=== PATIENT | female | born 1970 | race Caucasian/White ===

== ENCOUNTER 2020-01-01 00:56 | Day surgery (SDC) | payer BC, SELFPAY ==
[2019-12-30 09:38] VITALS: BMI 24.5
[2020-01-01 08:07] VITALS: BP 118/80; PULSE 94; RESP 16; TEMP 37.6; O2SAT 99
[2020-01-01] MEDS: LACTATED RINGERS 1,000 ML 150 ML IV CONT (08:25)
--- NOTE | 2020-01-01 08:43 | PM.HPGS ---
History of Present Illness History of Present Illness Consent: Risks, benefits, and alternatives have been discussed and questions answered. Patient agrees to proceed with procedure. Chief complaint: Epigastric Pian/ Neoplasm Screening Narrative: Barbara Kaur is a 49 year old female With persistent epigastric pain. Famotidine has not helped PMFSH Past Medical History Medical History Left wrist injury Pain of radial side of wrist Family History Family History Other Diabetes mellitus Hypertension Social History Social History Smoking status: Never smoker Alcohol intake: never Meds Home Medications and Allergies Home Medications Medication Instructions Recorded Confirmed Type bupropion HCl 300 mg 24 hr tablet, 300 mg PO QAM 12/21/19 12/30/19 History extended release escitalopram oxalate 5 mg tablet 5 mg PO DAILY 12/21/19 12/30/19 History zolpidem 10 mg tablet 10 mg PO ONCE 12/21/19 12/30/19 History estradiol 1 mg tablet 1 mg PO DAILY 12/23/19 12/30/19 History alprazolam 0.5 mg PO PRN PRN 12/30/19 12/30/19 History mirabegron [Myrbetriq] 50 mg PO DAILY 12/30/19 01/01/20 History Allergies Allergy/AdvReac Type Severity Reaction Status Date / Time Penicillins AdvReac Mild Vomiting Verified 01/01/20 08:06 Vital Signs Vital Signs - 24 hr 01/01/20 08:07 Temperature 37.6 C Pulse Rate 94 Respiratory Rate 16 Blood Pressure 118/80 Pulse Oximetry 99 Exam Const: General: alert Orientation/consciousness: patient oriented x3 Resp: Auscultation: clear to auscultation bilaterally Cardio: Rhythm: regular rhythm GI: GI Palp: Yes Soft to palpation and No Tenderness to palpation present (GI) Neuro: General: patient oriented x3 Assessment and Plan Assessment and plan (1) Epigastric pain: Code(s): R10.13 - Epigastric pain Status: Acute Assessment and Plan: EGD with possible biopsy or dilatation or cautery. (2) Colon cancer screening: Code(s): Z12.11 - Encounter for screening for malignant neoplasm of colon Status: Acute Assessment and Plan: Colonoscopy with possible biopsy or polypectomy or cautery or injection of substances.
--- NOTE | 2020-01-01 08:46 | P.PNAN_ITS ---
Anes - Initial Pre Proc Eval Procedure: Operation Date: 01/01/20 09:00 Proposed Procedures p Esophagogastroduodenoscopy & Screening Colonoscopy - Prabhu Stiles MD Date/Time: 01/01/20 08:46 Surgeon: Prabhu Stiles MD Pre Op Diagnosis: Epigastric Pian/ Neoplasm Screening Patient Data Age: 49 Gender: F Height: 5 ft 9 in Weight: 74.6 kg Last Vital Signs Temp 99.6 F 01/01/20 08:07 Pulse 94 01/01/20 08:07 Resp 16 01/01/20 08:07 BP 118/80 01/01/20 08:07 Pulse Ox 99 01/01/20 08:07 Allergies Allergy/AdvReac Type Severity Reaction Status Date / Time Penicillins AdvReac Mild Vomiting Verified 01/01/20 08:06 Home Medications Medication Instructions Recorded Confirmed Type bupropion HCl 300 mg 24 hr tablet, 300 mg PO QAM 12/21/19 12/30/19 History extended release escitalopram oxalate 5 mg tablet 5 mg PO DAILY 12/21/19 12/30/19 History zolpidem 10 mg tablet 10 mg PO ONCE 12/21/19 12/30/19 History estradiol 1 mg tablet 1 mg PO DAILY 12/23/19 12/30/19 History alprazolam 0.5 mg PO PRN PRN 12/30/19 12/30/19 History mirabegron [Myrbetriq] 50 mg PO DAILY 12/30/19 01/01/20 History Patient hx anesthesia problems: none Family hx anesthesia problems: none [facility] Past Medical History Medical History Left wrist injury Pain of radial side of wrist Family History Family History Other Diabetes mellitus Hypertension Social History Social History Smoking status: Never smoker Alcohol intake: never Anes - Eval Final PreProcedure Day of Procedure 01/01/20 08:46 Patient weight: normal Heart: regular rate and rhythm Lungs: clear to auscultation Airway: Mallampati scale class III Neurological: alert and oriented Last oral intake: >/= 8 hours ASA classification: II Emergent: no Anesthetic plan: proceed Anesthesia type and monitoring: general GIVS and standard monitoring Informed Consent: The patient's anesthetic plan and its attendant risks and benefits were discussed with the patient/family/POA. Questions were solicited and answers provided to the satisfaction of the patient/family/POA.
[2020-01-01 09:24] VITALS: BP 91/58; PULSE 77; RESP 16; O2SAT 97
[2020-01-01 09:34] VITALS: BP 98/63; PULSE 74; RESP 18; O2SAT 100
[2020-01-01 09:44] VITALS: BP 109/76; PULSE 86; RESP 21; O2SAT 100
== END 2020-01-01 10:03 | disposition home or self-care (01) ==
PROVIDERS: PCP Physician Assistant Medical; Visit Provider Internal Medicine Gastroenterology
PROC: 0DJ08ZZ Inspection of Upper Intestinal Tract, Via Natural or Artificial Opening Endoscopic (ICD-10-PCS; CPT 43235; principal; 2020-01-01 09:00)
DX: Z12.11 Encounter for screening for malignant neoplasm of colon (principal); K31.7 Polyp of stomach and duodenum; K21.0 Gastro-esophageal reflux disease with esophagitis; K29.70 Gastritis, unspecified, without bleeding; K25.9 Gastric ulcer, unspecified as acute or chronic, without hemorrhage or perforation; K29.80 Duodenitis without bleeding
CPT/HCPCS: 45378; 43239; 87081; 88305; J2001; J2704; J7120

== ENCOUNTER 2020-03-14 08:37 | Outpatient (CLI) | payer BC, SELFPAY ==
--- NOTE | ~2020-03-14 | MR_ITS ---
EXAMINATION: MR lumbar spine wo con EXAM DATE: 03/14/2020 09:29 INDICATION: Chronic low back pain. TECHNIQUE: Multi-sequential, multiplanar MR images of the lumbar spine were obtained without contrast . Sagittal T1, T2, T2 fat saturation images. Axial T2 weighted images. There is no prior study for comparison. FINDINGS: The spinal cord central canal is perceptible, minimally dilated at about 2 mm without any o bstructing mass, cord parenchymal signal abnormality or other explanation. This is most likely incide ntal and not a clinically significant finding. There is a rudimentary L5-S1 disc space, a transitional L5 segment. There is edema within the pedicle s of both L4 and L5, without spondylolysis identified. Likely stress related change without fracture lines. Conus terminates at the T12-L1 level. There is mild disc disease L2-S1. The vertebral bodies are aligned in the AP dimension. Paraspinal soft tissue is unremarkable. Level by level evaluation: T11-12: There is a mild diffuse disc bulge. Facet arthropathy: Mild. Neural foraminal stenosis: No stenosis. Central canal stenosis: No stenosis. T12-L1: Disc does not extend beyond the endplate margin. Facet arthropathy: None. Neural foraminal stenosis: No stenosis. Central canal stenosis: No stenosis. L1-L2: Disc does not extend beyond the endplate margin. Facet arthropathy: Mild. Neural foraminal stenosis: No stenosis. Central canal stenosis: No stenosis. L2-3: There is a mild diffuse disc bulge. Facet arthropathy: Mild to moderate. Neural foraminal stenosis: No stenosis. Central canal stenosis: No stenosis. L3-4: There is a mild diffuse disc bulge. Facet arthropathy: Moderate. Neural foraminal stenosis: Mild left. Central canal stenosis: Minimal. L4-5: There is a mild diffuse disc bulge. Facet arthropathy: Moderate. Neural foraminal stenosis: Mild left. Central canal stenosis: Mild. L5-S1: There is a congenitally narrowed disc space. Facet arthropathy: Mild. Neural foraminal stenosis: No stenosis. Central canal stenosis: No stenosis. IMPRESSION: 1. L4 and L5 bilateral pedicular edema or stress reaction without discrete spondylolysis. 2. Moderate mid lumbar facet arthropathy. 3. Mild disc disease. 4. Transitional L5 segment. Reviewed, dictated and finalized at location A. IMPRESSION: 1. L4 and L5 bilateral pedicular edema or stress reaction without discrete spo ndylolysis. 2. Moderate mid lumbar facet arthropathy. 3. Mild disc disease. 4. Transitional L5 segment.
== END 2020-03-14 08:38 | disposition home or self-care (01) ==
LOC: ANHIMG 08:46
PROVIDERS: PCP Physician Assistant Medical; Visit Provider Nurse Practitioner Family
DX: M54.5 Low back pain (principal); G89.29 Other chronic pain; M51.36 Other intervertebral disc degeneration, lumbar region; Q76.49 Other congenital malformations of spine, not associated with scoliosis
CPT/HCPCS: 72148

== ENCOUNTER → 2020-05-06 13:17 | Outpatient (CLI) | payer BC, SELFPAY ==
--- NOTE | ~2020-05-06 | DEXA_ITS ---
Bone Density Report Name: Barbara Kaur Age: 50 Sex: Female Ethnicity: White Date of : 1970 Indication: postmenopausal; screening for osteoporosis; height loss; hysterectomy; Referring Provider: Callum, Noa Corley Study: Bone densitometry was performed. Exam Date: May 06, 2020 Accession number: [id number] Bone Density: Region BMD T-score Z-score Classification AP Spine (L1, L2, L3) 0.973 -0.4 0.4 Normal Femoral Neck (Left) 0.980 1.2 2.0 Normal Total Hip (Left) 1.021 0.6 1.2 Normal Femoral Neck (Right) 1.047 1.8 2.6 Normal Total Hip (Right) 1.068 1.0 1.6 Normal Total Hip Mean 1.045 0.8 1.4 Normal World Health Organization criteria for BMD impression classify patients as: Normal (T-score at or above -1.0), Osteopenia (T-score between -1.0 and -2.5), or Osteoporosis (T-score at or below -2.5). 10-year Fracture Risk: FRAX not reported because: All T-scores for Spine Total, Hip Total, Femoral Neck at or above -1.0 Treated for osteoporosis Clinical Information Provided by Patient: Is being treated for osteoporosis Has used the following medications: HRT (i.e. estrogen/hormone therapy), Vitamin D, Calcium Has the following medical conditions: Hysterectomy Patient maximum height was 68 Menopause Age: 40 No regular weight bearing exercise Does not regularly consume dairy products Drinks caffeinated beverages Onset of menses at age 9 Number of children 1 Impression: The patient has normal bone mass. Discussion: It is important to ask patients whether they are taking their medications and to encourage continued and appropriate compliance with their osteoporosis therapies to reduce fracture risk. It is also important to review their risk factors and encourage appropriate calcium and vitamin D intakes, exercise, fall prevention and other lifestyle measures. Follow-Up: Consider a repeat BMD and Vertebral Fracture Assessment (VFA) exam in 2 years or sooner if medically necessary, to reassess this patient's status. Reported by: [facility] on 05/06/2020 1:37:00 PM. Reviewed, dictated and finalized at location A. AMY
== END ==
PROVIDERS: PCP Physician Assistant Medical; Visit Provider Internal Medicine Endocrinology, Diabetes & Metabolism
DX: Z78.0 Asymptomatic menopausal state (principal)
CPT/HCPCS: 77080

== ENCOUNTER → 2020-05-13 13:06 | Outpatient (CLI) | payer BC, SELFPAY ==
--- NOTE | ~2020-05-13 | XR_ITS ---
XR lumbar spine min 4V DATE: 05/13/2020 13:56 INDICATION: Back pain, lumbar area TECHNIQUE: Standing AP, lateral and coned lateral lumbosacral views. Flexion and extension upright la teral views. COMPARISON: 03/14/2020 MRI lumbar spine FINDINGS: There is prominent diffuse osteopenia. No fracture or bone destruction of the lumbar spine is detected. The included lower thoracic and lumb ar pedicles are intact. There is minimal dextroscoliosis of the lumbar spine. There is a transitional fifth lumbar vertebra. There is slight grade 1 anterolisthesis at L4-5, stable in neutral, flexion and extension. There is moderately prominent loss of interspace height at L3-4. Remaining lumbar interspaces are rel atively preserved. The sacroiliac joints are intact, with mild degenerative change. IMPRESSION: Diffuse osteopenia Minimal dextroscoliosis Transitional fifth lumbar vertebra Minimal grade 1 anterolisthesis at L4-5 Reviewed, dictated and finalized at location B.
== END ==
DX: M47.816 Spondylosis without myelopathy or radiculopathy, lumbar region (principal); M85.88 Other specified disorders of bone density and structure, other site
CPT/HCPCS: 72110

== ENCOUNTER 2020-07-07 08:03 | Outpatient (CLI) | payer BC, SELFPAY ==
[2020-07-07 08:38] LABS: Hematocrit 42.5 % (37.0-47.0); Hemoglobin 13.9 g/dL (12.0-15.0); Mean Corpuscular HGB Conc 32.7 g/dl (32-36); Mean Corpuscular Hemoglobin 29.6 pg (26-34); Mean Corpuscular Volume 90.6 fl (80-100); Mean Platelet Volume 9.8 fl (7.4-10.4); Platelet Count Result 303 k/mm3 (150-375); Red Blood Count 4.69 M/mm3 (4.2-5.4); Red Cell Distribution Width 12.7 % (11.5-14.5); White Blood Count 4.5 K/mm3 (4.5-10.0)
[2020-07-07 08:52] LABS: Anion Gap 6 mmol/L (8-16); Blood Urea Nitrogen 5 mg/dL (7-17); Calcium 9.3 mg/dL (8.4-10.2); Carbon Dioxide 29 mmol/L (22-30); Chloride 103 mmol/L (98-107); Estimated Glomerular Filt Rate 58; Glucose 109 mg/dL (65-105); Potassium 3.6 mmol/L (3.4-5.0); Sodium 138 mmol/L (137-145)
== END 2020-07-07 08:04 | disposition home or self-care (01) ==
LOC: ANHLAB 08:05
PROVIDERS: PCP Family Medicine; Visit Provider Nurse Practitioner Family
DX: R11.2 Nausea with vomiting, unspecified (principal)
CPT/HCPCS: 36415; 80048; 85027

== ENCOUNTER 2020-07-08 12:59 | Emergency (ER) | payer BC, SELFPAY ==
--- NOTE | ~2020-07-08 | CT_ITS ---
EXAMINATION: CT brain wo con DATE: 07/08/2020 16:48 INDICATION: Headache. TECHNIQUE: Computed tomography (CT) of the head was performed without intravenous contrast. The mA wa s adjusted according to patient size. Iterative reconstruction technique was employed. The dose-lengt h product was 681.00 mGy-cm. COMPARISON: None FINDINGS: There is no intracranial hemorrhage, acute infarction, or abnormal intracranial mass lesion . The ventricles are normal in size. The orbits are normal. The paranasal sinuses are clear. The mast oid air cells are normal. IMPRESSION: 1. Normal brain. Reviewed, dictated and finalized at location A. IMPRESSION: 1. Normal brain.
[2020-07-08 13:13] VITALS: BP 116/66; PULSE 93; RESP 18; TEMP 36.2; O2SAT 100
[2020-07-08 13:27] LABS: Basophils Percent Auto 0.4 % (0.2-1.2); Eosinophils Percent Auto 0.3 % (0-4.4); Hematocrit 41.7 % (37.0-47.0); Hemoglobin 14.1 g/dL (12.0-15.0); Immature Granulocyte Absolute 0.02 K/mm3 (0.00-0.031); Immature Granulocyte Percent A 0.3 % (0-0.5); Lymphocytes Absolute Auto 3.08 K/mm3 (0.9-3.2); Lymphocytes Percent Auto 45.6 % (18.3-44.2); Mean Corpuscular HGB Conc 33.8 g/dl (32-36); Mean Corpuscular Hemoglobin 30.1 pg (26-34); Mean Corpuscular Volume 89.1 fl (80-100); Mean Platelet Volume 9.8 fl (7.4-10.4); Monocytes Absolute Auto 0.6 K/mm3 (0.1-0.6); Monocytes Percent Auto 8.7 % (2.6-8.5); Neutrophils Percent Auto 44.7 % (45.5-73.1); Platelet Count Result 286 k/mm3 (150-375); Red Blood Count 4.68 M/mm3 (4.2-5.4); Red Cell Distribution Width 12.5 % (11.5-14.5); White Blood Count 6.8 K/mm3 (4.5-10.0)
--- NOTE | 2020-07-08 13:37 | ED.NAVMDI ---
HPI - Nausea/Vomiting/Diarrhea General Chief complaint: Nausea/Vomiting/Diarrhea Stated complaint: x1 week n/v Time Seen by Provider: 07/08/20 13:22 Source: RN notes reviewed History of Present Illness HPI Narrative: Patient presents emergency department from home for nausea vomiting and diarrhea. Patient states symptoms began 1 week ago. States she had numerous episodes of nausea vomiting as well as diarrhea. Associated with mild pain described as burning in the epigastric region. Patient also notes a bilateral frontal headache. She denies any fevers or chills chest pain shortness of breath or any other symptoms. Related Data Home Medications Medication Instructions Recorded Confirmed bupropion HCl 300 mg 24 hr tablet, 300 mg PO QAM 12/21/19 03/01/20 extended release escitalopram oxalate 5 mg tablet 5 mg PO DAILY 12/21/19 03/01/20 zolpidem 10 mg tablet 10 mg PO ONCE 12/21/19 03/01/20 estradiol 1 mg tablet 1 mg PO DAILY 12/23/19 03/01/20 Myrbetriq 50 mg PO DAILY 12/30/19 03/01/20 alprazolam 0.5 mg PO PRN PRN 12/30/19 03/01/20 topiramate 25 mg PO 07/08/20 Allergies Allergy/AdvReac Type Severity Reaction Status Date / Time Penicillins AdvReac Mild Vomiting Verified 07/08/20 14:21 Review of Systems Review of Systems: Narrative: Gen.: Denies fevers or chills ENT: Denies congestion Respiratory: Denies shortness of breath or cough CV: Denies chest pain or palpitations GI: See HPI denies burning, urgency, frequency or hematuria Musculoskeletal: Denies back pain or muscle pain Neuro: Denies numbness, tingling, weakness or focal weakness Skin: Denies rash Except as documented, all other systems reviewed and negative PMFSH Past Medical History Medical History Asthma Left wrist injury Pain of radial side of wrist Social History Social History Smoking status: Never smoker Alcohol intake: never Gender identity (if verbalized by the patient): Female Exam Narrative: Exam Narrative: APPEARANCE: No acute distress, nontoxic, resting in bed HEENT: Normocephalic, atraumatic, OMM RESPIRATORY: No respiratory distress, clear to auscultation bilaterally with no rhonchi wheezing or rales CARDIOVASCULAR: RRR s murmur ABDOMINAL: Soft, nondistended, tender palpation epigastric region, no tenderness right upper quadrant, left upper quadrant, right lower quadrant left lower quadrant no rebound or guarding MUSCULOSKELETAl: Moves all extremities. No clubbing, cyanosis or edema. NEURO: Awake and alert. Following commands, speech normal, no focal deficits SKIN:: Warm, dry. Normal Color PSYCHIATRIC: Normal affect/mood Course Course Emergency Course: Reviewed old records patient with a cover test yesterday that was negative Patient states she is feeling much better at this time. States headache is resolved able to eat and drink in ED with no emesis denies any abdominal pain at this time Patient states that they are feeling much better at this time. States abdominal pain has resolved. Repeat abdominal exam shows the patient's abdomen to be soft and nontender. Discussed with patient results of workup and diagnosis. Discussed need for follow-up with primary care physician, reasons to return to the emergency department in proper use of medication. Patient understands and agrees to current treatment plan Vital Signs Vital signs: Vital Signs Temperature 97.2 F L 07/08/20 13:13 Pulse Rate 93 07/08/20 13:13 Respiratory Rate 18 07/08/20 13:13 Blood Pressure 116/66 07/08/20 13:13 Pulse Oximetry 100 07/08/20 13:13 Temperature 97.2 F L 07/08/20 13:13 Pulse Rate 83 07/08/20 16:08 Respiratory Rate 18 07/08/20 16:08 Blood Pressure 123/74 07/08/20 16:08 Pulse Oximetry 100 07/08/20 16:08 MDM - Nausea/Vomiting/Diarrhea MDM Narrative Medical decision making narrative: Patient's abdomen is soft
[2020-07-08 13:39] LABS: Alanine Aminotransferase 15 U/L (4-35); Albumin Level 4.3 g/dL (3.5-5.1); Alkaline Phosphatase 84 U/L (38-126); Anion Gap 7 mmol/L (8-16); Aspartate Amino Transferase 20 U/L (14-36); Bilirubin,Total 0.4 mg/dL (0.2-1.3); Blood Urea Nitrogen 5 mg/dL (7-17); Calcium 9.5 mg/dL (8.4-10.2); Carbon Dioxide 29 mmol/L (22-30); Chloride 102 mmol/L (98-107); Estimated CRCL calculation 59 ml/min; Estimated Glomerular Filt Rate 58; Glucose 103 mg/dL (65-105); Lipase 116 U/L (23-300); Potassium 3.6 mmol/L (3.4-5.0); Sodium 138 mmol/L (137-145)
--- NOTE | 2020-07-08 13:47 | PC.NURSE ---
Pt unable to urinate. Refusing catheter
[2020-07-08 14:15] LABS: Add Urine Microscopic? YES; Appearance Urine Cloudy (Clear); Bacteria Urine 2+ /hpf; Bilirubin Urine Negative (Negative); Blood Urine Negative (Negative); Color Urine Yellow (Yellow); Glucose Urine UA Negative (Negative); Ketones Urine Negative (Negative); Leukocyte Esterase Ur Negative LEU/UL (Negative); Mucus Urine Rare /lpf; Nitrate Urine Negative (Negative); Protein Urine Negative (Negative); RBC Urine 0-2 /hpf (0-2); Specific Grav Ur 1.011 (1.001-1.035); Squamous Epithelial Cell Urine Moderate /hpf (Few); Urobilinogen Urine Negative mg/dL (<2.0)
[2020-07-08] MEDS: FAMOTIDINE 20 MG/2 ML VIAL IV PUSH (14:20)
[2020-07-08] MEDS: ONDANSETRON INJ 4 MG/2 ML VIAL IV PUSH (14:20)
[2020-07-08] MEDS: SODIUM CHLORIDE 0.9% IV 1,000 ML 999 ML IV CONT ×2 (14:20→14:58)
--- NOTE | 2020-07-08 14:30 | PC.NURSE ---
Pt still unable to urinate. still refusing catheter
[2020-07-08] MEDS: KETOROLAC 30 MG/ML VIAL (*BKC) IV PUSH (16:06)
[2020-07-08 16:08] VITALS: BP 123/74; PULSE 83; RESP 18; O2SAT 100
[2020-07-08] MEDS: PROMETHAZINE HCL 25 MG/ML AMPUL 12.5 MG IV PUSH (16:34)
[2020-07-08] MEDS: NITROFURANTOIN MONOHYD MACROCR 100 MG CAP PO (18:00)
[2020-07-08 18:24] VITALS: BP 125/73; PULSE 85; RESP 18; O2SAT 100
== END 2020-07-08 18:25 | disposition home or self-care (01) ==
PROVIDERS: Emergency Medicine; Emergency Provider Emergency Medicine; PCP Family Medicine
DX: R11.2 Nausea with vomiting, unspecified (principal); R10.13 Epigastric pain; R51 Headache; J45.909 Unspecified asthma, uncomplicated
CPT/HCPCS: 36415; 70450; 80053; 81001; 81025; 83690; 85025; 87086; 96361; 96365; 96375; 99284; A9270; J0131; J1885; J2405; J2550; J7030

== ENCOUNTER 2020-10-09 14:57 | Emergency (ER) | payer BC, SELFPAY ==
--- NOTE | ~2020-10-09 | CT_ITS ---
EXAMINATION: CT brain wo con EXAM DATE: 10/09/2020 16:17 INDICATION: Headache. TECHNIQUE: Spiral CT of the head was performed without contrast. Axial, coronal and sagittal images were reviewed. The dose-length product (DLP) for this examination was 605.33 mGy-cm. The exposure w as tailored according to patient size, and iterative reconstruction (ASIR) was used as additional dos e reduction technique. Comparison is made to prior examination from 07/08/2020. FINDINGS: There is no acute intraparenchymal hemorrhage. No evidence of intraparenchymal brain mass lesion. No evidence of acute infarction. Please note that initial head CT has limited sensitivity f or small or acute infarctions. There is mild prominence of the sulci and ventricles related to cerebr al atrophy. There is intracranial carotid arteriosclerosis. There are no extra-axial collections. There is no mass effect or midline shift. The orbits are unremarkable. Soft tissue is unremarkable . The visualized sinuses and mastoid air cells are well aerated. IMPRESSION: Unremarkable head CT exam. Reviewed, dictated and finalized at location A. [employer] ASSISTANT IMPRESSION: Unremarkable head CT exam.
[2020-10-09 15:02] VITALS: BP 119/68; PULSE 88; RESP 16; TEMP 36.6; O2SAT 99
--- NOTE | 2020-10-09 15:32 | ED.HA ---
HPI - Headache General Chief Complaint: Headache Stated Complaint: h/a s/p spinal injection Time Seen by Provider: 10/09/20 15:32 Source: patient Mode of arrival: ambulatory Limitations: no limitations History of Present Illness HPI Narrative: Patient is a 50-year-old female with a history of chronic lower back pain who presents for evaluation of headache pain. Patient reportedly had a laminar procedure of L4-L5 done at a pain management clinic on 10/06, was noted to have a CSF leak by the physician, Dr. Keaton Gamboa who performed the procedure, and then yesterday developed a positional headache, that is severe when she is sitting upright or standing associated with photosensitivity, nausea. Patient denies lower back pain. She denies bruising at the site. She denies weakness or numbness in her lower extremities. Patient has been taking antiemetic prescribed by her primary care physician without any improvement in her symptoms. Related Data Home Medications Medication Instructions Recorded Confirmed bupropion HCl 300 mg 24 hr tablet, 300 mg PO QAM 12/21/19 09/04/20 extended release escitalopram oxalate 5 mg tablet 5 mg PO DAILY 12/21/19 09/04/20 zolpidem 10 mg tablet 10 mg PO ONCE 12/21/19 09/04/20 estradiol 1 mg tablet 1 mg PO DAILY 12/23/19 09/04/20 Myrbetriq 50 mg PO DAILY 12/30/19 09/04/20 alprazolam 0.5 mg PO PRN PRN 12/30/19 09/04/20 Allergies Allergy/AdvReac Type Severity Reaction Status Date / Time amoxicillin [From Augmentin] Allergy Vomiting Verified 10/09/20 15:25 clavulanic acid Allergy Vomiting Verified 10/09/20 15:25 [From Augmentin] Penicillins AdvReac Mild Vomiting Verified 10/09/20 15:25 Review of Systems Review of Systems: Narrative: CONSTITUTIONAL: Denies fever, chills, or sweats. EYES: Denies visual changes, redness, or discharge. ENT: Denies rhinorrhea, congestion, sore throat, or otalgia. CARDIOVASCULAR: Denies chest pain, palpitations, or edema. RESPIRATORY: Denies cough or dyspnea. GASTROINTESTINAL: Denies abdominal pain, nausea, and vomiting GENITOURINARY: Denies dysuria or hematuria. SKIN: Denies rash or itching. MUSCULOSKELETAL: Denies back pain, joint pain, or myalgia. 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 EYES: 2+ PERRLA and EOMI, no nystagmus. ENT: Nares clear, no rhinorrhea or epistaxis. Mucous membranes moist. NECK: Supple. Intact flexion extension without rigidity or pain. CHEST: No respiratory distress, breathing even and non labored HEART: Regular rate, sinus rhythm ABDOMEN:Non distended, non tender Thorax: Midline lumbar needle site injection site clean, dry, intact, nontender EXTREMITIES: Normal range of motion. No edema. SKIN: Warm, dry, no rash. NEURO:No focal deficits. Alert and oriented x3. EOMs intact without nystagmus. No facial droop/asymmetry noted bilaterally. Grimace intact. Intact sensation in face. Hearing intact bilaterally. Shoulder shrug intact. Strength 5/5 bilateral upper extremities. Strength 5/5 bilateral lower extremities. Ambulatory with a narrow base, steady gait. Course Vital Signs Vital signs: Vital Signs Temperature 36.6 C 10/09/20 15:02 Pulse Rate 88 10/09/20 15:02 Respiratory Rate 16 10/09/20 15:02 Blood Pressure 119/68
[2020-10-09] MEDS: SODIUM CHLORIDE 0.9% IV 1,000 ML 999 ML IV CONT (16:00)
[2020-10-09] MEDS: METOCLOPRAMIDE HCL INJ 10 MG/2 ML VIAL IV PUSH (16:04)
[2020-10-09 16:28] LABS: Basophils Percent Auto 0.4 % (0.2-1.2); Eosinophils Percent Auto 0.4 % (0-4.4); Hemoglobin 12.9 g/dL (12.0-15.0); Immature Granulocyte Absolute 0.02 K/mm3 (0.00-0.031); Immature Granulocyte Percent A 0.3 % (0-0.5); Lymphocytes Absolute Auto 3.41 K/mm3 (0.9-3.2); Lymphocytes Percent Auto 43.8 % (18.3-44.2); Mean Corpuscular HGB Conc 33.1 g/dl (32-36); Mean Corpuscular Hemoglobin 30.2 pg (26-34); Mean Corpuscular Volume 91.3 fl (80-100); Monocytes Absolute Auto 0.6 K/mm3 (0.1-0.6); Monocytes Percent Auto 8.2 % (2.6-8.5); Neutrophils Absolute Auto 3.7 K/mm3 (1.3-6.7); Neutrophils Percent Auto 46.9 % (45.5-73.1); Platelet Count Result 289 k/mm3 (150-375); Red Blood Count 4.27 M/mm3 (4.2-5.4); Red Cell Distribution Width 12.7 % (11.5-14.5); White Blood Count 7.8 K/mm3 (4.5-10.0)
[2020-10-09] MEDS: CAFFEINE 200 MG TABLET 100 MG PO (16:28)
[2020-10-09] MEDS: MAGNESIUM SULF 2 GM/WATER 50ML 2 GM/50 ML BAG IVPB (16:28)
[2020-10-09 16:39] LABS: Anion Gap 6 mmol/L (8-16); Blood Urea Nitrogen 18 mg/dL (7-17); Calcium 8.9 mg/dL (8.4-10.2); Carbon Dioxide 31 mmol/L (22-30); Chloride 102 mmol/L (98-107); Estimated CRCL calculation 59 ml/min; Estimated Glomerular Filt Rate 58; Glucose 86 mg/dL (65-105); Potassium 3.2 mmol/L (3.4-5.0); Sodium 139 mmol/L (137-145)
--- NOTE | 2020-10-26 07:16 | PC.NURSE ---
Late entry note - IV Normal Saline fluids stopped on 10/09/20 @ 1800.
== END 2020-10-09 18:10 | disposition home or self-care (01) ==
PROVIDERS: Emergency Provider Emergency Medicine; PCP Family Medicine
DX: R51.9 Headache, unspecified (principal); J45.909 Unspecified asthma, uncomplicated
CPT/HCPCS: 36415; 70450; 80048; 85025; 96365; 96367; 96375; 99284; A9270; J0131; J1100; J2765; J3475; J7030

== ENCOUNTER → 2021-02-17 15:42 | Outpatient (CLI) | payer BC, SELFPAY ==
--- NOTE | ~2021-02-17 | MR_ITS ---
EXAMINATION: MR lumbar spine wo con DATE: 02/17/2021 16:35 INDICATION: Lumbago TECHNIQUE: Magnetic resonance imaging (MRI) of the lumbar spine was performed without intravenous con trast. Sequences included sagittal T2-weighted FSE, sagittal T2-weighted FS FSE, sagittal T1-weighted FSE, and axial T2-weighted FSE. COMPARISON: None FINDINGS: 1-2 mm anterolisthesis L5 on S1. Vertebral body heights are normal. Mild fibrofatty degenerative endp late changes at the anterior superior endplate of T12. Marrow signal is otherwise normal. Disc height loss with disc bulges at T10-T11 and T11-T12. Disc desiccation and moderate disc height loss at L3-L 4 and mild disc height loss at L2-L3, L4-L5 and L5-S1. The conus medullaris terminates at L1. There i s normal signal in the caudal spinal cord. Paravertebral soft tissues are unremarkable. The following disc levels are specifically discussed: T12-L1: The disc does not extend beyond the endplate margin. There is mild bilateral facet joint oste oarthritis. There is no neural foraminal stenosis. There is no central canal stenosis. L1-L2: Disc is minimally bulging. There is mild bilateral facet joint osteoarthritis. There is no brennen ral foraminal stenosis. There is no central canal stenosis. L2-L3: Disc is bulging. There is mild left and moderate right facet joint osteoarthritis. There is mi ld bilateral neural foraminal stenosis. There is mild central canal stenosis. L3-L4: Disc is bulging with superimposed annular fissure and small central to left paracentral disc e xtrusion with disc material extending up to 3 mm cephalad to the level of the inferior endplate of L3 . There is hypertrophy of the ligamentum flavum. There is moderate bilateral facet joint osteoarthrit is. There is mild bilateral neural foraminal stenosis. There is mild central canal stenosis. L4-L5: Disc is bulging. There is hypertrophy of the ligamentum flavum. There is moderate right and s evere left facet joint osteoarthritis. There is mild bilateral neural foraminal stenosis. There is mi ld central canal stenosis. L5-S1: Disc is minimally bulging. There is mild bilateral facet joint osteoarthritis. There is no brennen ral foraminal stenosis. There is no central canal stenosis. IMPRESSION: 1. Mild lumbar spondylosis. Reviewed, dictated and finalized at location A. IMPRESSION: 1. Mild lumbar spondylosis.
== END ==
PROVIDERS: Visit Provider Nurse Practitioner Family
DX: M47.896 Other spondylosis, lumbar region (principal)
CPT/HCPCS: 72148

== ENCOUNTER 2021-02-22 07:49 | Outpatient (CLI) | payer BC, SELFPAY | END 2021-02-22 07:50 | disposition home or self-care (01) | PROVIDERS: Visit Provider Otolaryngology | DX: H93.19 Tinnitus, unspecified ear (principal); H90.3 Sensorineural hearing loss, bilateral | CPT/HCPCS: 92557; 92567 ==

== ENCOUNTER → 2021-02-22 16:13 | Outpatient (CLI) | payer BC, SELFPAY ==
--- NOTE | ~2021-02-22 | MM_ITS ---
EXAMINATION: MM screening adi BI w loco HISTORY: Screening TECHNIQUE: Craniocaudal and mediolateral oblique 3-D tomosynthesis images were obtained and synthetic 2-D images were generated. CAD analysis was submitted and interpreted. COMPARISON: Comparison to multiple prior studies sequentially, with oldest reviewed study dated 01/14. BREAST PARENCHYMAL COMPOSITION: The breasts are heterogeneously dense, which may obscure small masses . FINDINGS: There is a new mass in the lower inner quadrant of the right breast posteriorly measuring 8 mm. The left breast is stable without evidence for malignancy. IMPRESSION: 1. New right breast mass, lower inner quadrant measuring 8 mm. 2. Additional mammographic views and possible breast ultrasound are recommended. BI-RADS Category 0: Incomplete: Needs additional imaging evaluation. Reviewed, dictated and finalized at location A. IMPRESSION: 1. New right breast mass, lower inner quadrant measuring 8 mm. 2. Additional mammographic views and possible breast ultrasound are recommended . BI-RADS Category 0: Incomplete: Needs additional imaging evaluation.
== END ==
PROVIDERS: Visit Provider Nurse Practitioner
DX: Z12.31 Encounter for screening mammogram for malignant neoplasm of breast (principal); R92.8 Other abnormal and inconclusive findings on diagnostic imaging of breast
CPT/HCPCS: 77063; 77067

== ENCOUNTER 2021-02-25 11:24 | Outpatient (CLI) | payer BC, SELFPAY ==
--- NOTE | ~2021-02-25 | MMUS_ITS ---
EXAMINATION: MM diagnostic mammo unilat RT, US breast RT limited HISTORY: Follow-up right breast mass TECHNIQUE: Additional 3-D tomosynthesis images of the right breast were performed and synthetic 2-D i mages were generated. CAD analysis was submitted and interpreted. High resolution Limited right breas t ultrasound was performed. COMPARISON: Comparison to multiple prior studies sequentially, with oldest reviewed study dated 01/14. BREAST PARENCHYMAL COMPOSITION: The breasts are heterogenously dense, which may obscure small masses. FINDINGS: MAMMOGRAPHIC FINDINGS: There is a mass in the lower inner quadrant of the right breast, middle-posterior third. This mass me asures approximately 9 mm with slightly lobulated margins. ULTRASOUND: Limited right breast ultrasound: At 2:00, 7 cm from the nipple, there is an oval hypoechoic mass measuring 7 x 7 x 5 mm with parallel orientation, circumscribed margins and heterogeneous internal echotexture. There is minimal internal vascularity. No significant posterior features. IMPRESSION: 1. Right breast mass measuring 7 mm at 2:00, 7 cm from the nipple. 2. Ultrasound-guided right breast biopsy recommended. BI-RADS category 4, suspicious findings. Reviewed, dictated and finalized at location A. IMPRESSION: 1. Right breast mass measuring 7 mm at 2:00, 7 cm from the nipple. 2. Ultrasound-guided right breast biopsy recommended. BI-RADS category 4, suspicious findings.
== END 2021-02-25 11:25 | disposition home or self-care (01) ==
PROVIDERS: Visit Provider Obstetrics & Gynecology Gynecology
DX: R92.8 Other abnormal and inconclusive findings on diagnostic imaging of breast (principal)
CPT/HCPCS: 76642; 77065

== ENCOUNTER 2021-03-15 10:16 | Outpatient (CLI) | payer BC, SELFPAY ==
--- NOTE | ~2021-03-15 | MMUS_ITS ---
EXAMINATION: US GUIDED NEEDLE BIOPSY DATE: 03/15/2021 11:33 CDT INDICATION: 7 mm mammographic and sonographic mass at 2:00 7 cm from nipple TECHNIQUE AND FINDINGS: The risks and potential benefits of the procedure were discussed with the patient, and written inform ed consent was obtained. Timeout procedure was performed. After sterile preparation of the right ping st, 1% lidocaine was utilized for local anesthesia. A 14G spring-loaded biopsy gun needle was advanced to the edge of the region of interest from a media l approach utilizing sonographic guidance. A total of three tissue core samples were obtained throug h the lesion. An Inrad tissue marker clip was then placed at the biopsy site. Hemostasis was achieve d. A sterile bandage was applied. The patient tolerated procedure well and there was no evidence of immediate complication. The patien t was given verbal instructions prior to departing from the department. A two view mammogram was perf ormed to document tissue marker clip placement. The tissue samples were submitted to surgical patholo gy for histologic analysis. IMPRESSION: 1. Successful ultrasound guided biopsy of right 2:00 breast mass with biopsy marker placement. Andi guillen refer to pathology report for histologic analysis. Reviewed, dictated and finalized at Location A. Reviewed, dictated and finalized at location A. IMPRESSION: 1. Successful ultrasound guided biopsy of right 2:00 breast mass with biopsy m arker placement. Please refer to pathology report for histologic analysis.
== END 2021-03-15 10:17 | disposition home or self-care (01) ==
PROVIDERS: PCP Physician Assistant Medical; Visit Provider Surgery
DX: R92.8 Other abnormal and inconclusive findings on diagnostic imaging of breast (principal)
CPT/HCPCS: 19083; 88305; A4648

== ENCOUNTER 2021-06-02 09:35 | Outpatient (CLI) | payer BC, SELFPAY ==
--- NOTE | ~2021-06-02 | XR_ITS ---
XR chest 2V DATE: 06/02/2021 09:50 INDICATION: Cough, shortness of breath. Asthma. TECHNIQUE: PA and lateral views COMPARISON: 10/11/2018 two-view chest FINDINGS: Normal heart size. No hilar or mediastinal enlargement. Moderate hyperinflation of the lung s. No pulmonary infiltrate or consolidation, pleural effusion or pulmonary vascular congestion or pne umothorax. Prominent degenerative disc disease in the lower cervical spine. Mild degenerative change of the thor acic spine. Diffuse osteopenia. IMPRESSION: Moderate hyperinflation; no active cardiopulmonary disease Reviewed, dictated and finalized at location A.
== END 2021-06-02 09:36 | disposition home or self-care (01) ==
PROVIDERS: PCP Family Medicine; Visit Provider Nurse Practitioner Family
DX: R05 Cough (principal); R06.02 Shortness of breath; J45.909 Unspecified asthma, uncomplicated; R91.8 Other nonspecific abnormal finding of lung field
CPT/HCPCS: 71046

== ENCOUNTER 2021-09-15 01:17 | Day surgery (SDC) | payer BC, SELFPAY ==
[2021-09-02 10:57] VITALS: BMI 24.7
[2021-09-15 09:06] VITALS: BP 118/78; PULSE 92; RESP 19; TEMP 37.3; O2SAT 100
--- NOTE | 2021-09-15 09:10 | WPDANESEPPF ---
Anes - Initial Pre Proc Eval Procedure: Operation Date: 09/15/21 10:15 Proposed Procedures p Esophagogastroduodenoscopy - Maikel Velazquez MD Date/Time: 09/15/21 09:10 Surgeon: Maikel Velazquez MD Pre Op Diagnosis: nausea, GERD Patient Data Age: 51 Gender: F Height: 1.73 m Weight: 75.2 kg Last Vital Signs Temp 37.3 C 09/15/21 09:06 Pulse 92 09/15/21 09:06 Resp 19 09/15/21 09:06 BP 118/78 09/15/21 09:06 Pulse Ox 100 09/15/21 09:06 Allergies Allergy/AdvReac Type Severity Reaction Status Date / Time amoxicillin [From Augmentin] Allergy Vomiting Verified 09/15/21 09:04 clavulanic acid Allergy Vomiting Verified 09/15/21 09:04 [From Augmentin] Penicillins AdvReac Mild Vomiting Verified 09/15/21 09:04 Home Medications Medication Instructions Recorded Confirmed Type bupropion HCl 300 mg 24 hr tablet, 300 mg PO QAM 12/21/19 09/15/21 History extended release Myrbetriq 50 mg PO DAILY 12/30/19 09/15/21 History alprazolam 0.5 mg PO PRN PRN 12/30/19 09/15/21 History estradiol 1 mg tablet 1 mg PO DAILY tablet 02/04/21 09/15/21 History rosuvastatin 20 mg tablet 20 mg PO WEEKLY 03/03/21 09/15/21 History albuterol sulfate 90 mcg/actuation 1 inh INHALATION Q4H PRN #6.7 gm 05/18/21 09/15/21 Rx aerosol inhaler montelukast 10 mg tablet 10 mg PO DAILY #30 tablet 06/15/21 09/15/21 Rx omeprazole 40 mg capsule,delayed 40 mg PO DAILY #90 cap 08/03/21 09/15/21 Rx release Patient hx anesthesia problems: none Family hx anesthesia problems: none Results Review: All pre-operative results and documents have been reviewed as part of the pre-operative evaluation. [facility] Past Medical History Medical History Asthma BMI 23.0-23.9, adult GERD (gastroesophageal reflux disease) High cholesterol Hx of gastric ulcer Hyperinflation of lungs Irritable bowel syndrome with constipation Left wrist injury Nausea Pain of radial side of wrist Surgical History Surgical History H/O: hysterectomy History of lumpectomy of left breast Family History Family History Father Mother Diabetes mellitus Hypertension Obesity Neuropathy Depression Thyroid disorder Sibling Hyperlipidemia Depression Thyroid disorder Other Asthma Hypertension Depression Grandparent Lung cancer Bladder cancer Diabetes mellitus Hypertension Depression Heart disease Cerebrovascular accident Thyroid disorder Social History Social History Smoking status: Never smoker Second hand tobacco smoke exposure: No Alcohol intake: never Substance use: never Substance use type: does not use Living arrangements: with family Additional living arrangements comments: LIVES WITH [facility] [phone] 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 Informed Consent: The patient's anesthetic plan and its attendant risks and benefits were discussed with the patient/family/POA. Questions were solicited and answers provided to the satisfaction of the patient/family/POA.
[2021-09-15] MEDS: LACTATED RINGERS 1,000 ML 150 ML IV CONT (09:15)
--- NOTE | 2021-09-15 09:21 | PM.HPGS ---
History of Present Illness History of Present Illness Consent: Risks, benefits, and alternatives have been discussed and questions answered. Patient agrees to proceed with procedure. Chief complaint: nausea, GERD Narrative: Barbara Kaur is a 51 year old female still with nausea, here to assess with another egd Review of Systems Constitutional: Constitutional: Denies headache(s) and Denies weakness Eyes: Eyes: Denies blurry vision ENT: Reports Normal hearing present, Denies headache(s) and Denies neck pain Cardiovascular: Cardiovascular: Denies chest pain and Denies dyspnea Respiratory: Respiratory: Denies dyspnea Gastrointestinal: Gastrointestinal: Reports no additional gastrointestinal complaints Genitourinary: Genitourinary: Denies dysuria Musculoskeletal: Musculoskeletal: Denies neck pain Integumentary/Breasts: Skin/Breast: Denies dry skin Neurologic: Reports Normal hearing present, Denies headache(s) and Denies weakness Psychiatric: Psychiatric: Denies anxiety Endocrine: Endocrine: Denies change in body appearance Hematologic/Lymphatic: Hematologic/Lymphatic: Denies easy bleeding Allergic/Immunologic: Allergic/Immunologic: Denies urticaria PMFSH Past Medical History Medical History Asthma BMI 23.0-23.9, adult GERD (gastroesophageal reflux disease) High cholesterol Hx of gastric ulcer Hyperinflation of lungs Irritable bowel syndrome with constipation Left wrist injury Nausea Pain of radial side of wrist Surgical History Surgical History H/O: hysterectomy History of lumpectomy of left breast Family History Family History Father Mother Diabetes mellitus Hypertension Obesity Neuropathy Depression Thyroid disorder Sibling Hyperlipidemia Depression Thyroid disorder Other Asthma Hypertension Depression Grandparent Lung cancer Bladder cancer Diabetes mellitus Hypertension Depression Heart disease Cerebrovascular accident Thyroid disorder Social History Social History Smoking status: Never smoker Second hand tobacco smoke exposure: No Alcohol intake: never Substance use: never Substance use type: does not use Living arrangements: with family Additional living arrangements comments: LIVES WITH [facility] [phone] 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 Gender identity (if verbalized by the patient): Female Spiritual care concerns: No Meds Home Medications and Allergies Home Medications Medication Instructions Recorded Confirmed Type bupropion HCl 300 mg 24 hr tablet, 300 mg PO QAM 12/21/19 09/15/21 History extended release Myrbetriq 50 mg PO DAILY 12/30/19 09/15/21 History alprazolam 0.5 mg PO PRN PRN 12/30/19 09/15/21 History estradiol 1 mg tablet 1 mg PO DAILY tablet 02/04/21 09/15/21 History rosuvastatin 20 mg tablet 20 mg PO WEEKLY 03/03/21 09/15/21 History albuterol sulfate 90 mcg/actuation 1 inh INHALATION Q4H PRN #6.7 gm 05/18/21 09/15/21 Rx aerosol inhaler montelukast 10 mg tablet 10 mg PO DAILY #30 tablet 06/15/21 09/15/21 Rx omeprazole 40 mg capsule,delayed 40 mg PO DAILY #90 cap 08/03/21 09/15/21 Rx release Allergies Allergy/AdvReac Type Severity Reaction Status Date / Time amoxicillin [From Augmentin] Allergy Vomiting Verified 09/15/21 09:04 clavulanic acid Allergy Vomiting Verified 09/15/21 09:04 [From Augmentin] Penicillins AdvReac Mild Vomiting Verified 09/15/21 09:04 Vital Signs Vital Signs - 24 hr 09/15/21 09:06 Temperature 99.2 F Pulse Rate 92 Respiratory Rate 19 Blood Pressure 118/78 Pulse Oximetry 100 Exam Const: General: comfortable and no acute distress HENMT: General nose exam: Normal nares present Eyes: General: appea
[2021-09-15 09:36] VITALS: BP 99/62; PULSE 79; RESP 21; O2SAT 100
[2021-09-15 09:46] VITALS: BP 106/65; PULSE 81; RESP 14; O2SAT 100
[2021-09-15 09:56] VITALS: BP 114/78; PULSE 82; RESP 22; O2SAT 100
== END 2021-09-15 10:10 | disposition home or self-care (01) ==
PROVIDERS: PCP Family Medicine; Visit Provider Internal Medicine Gastroenterology
PROC: 0DJ08ZZ Inspection of Upper Intestinal Tract, Via Natural or Artificial Opening Endoscopic (ICD-10-PCS; CPT 43235; principal; 2021-09-15 10:15)
DX: R11.0 Nausea (principal); K21.9 Gastro-esophageal reflux disease without esophagitis; K29.70 Gastritis, unspecified, without bleeding; J45.909 Unspecified asthma, uncomplicated; E78.00 Pure hypercholesterolemia, unspecified; K58.1 Irritable bowel syndrome with constipation; Z79.51 Long term (current) use of inhaled steroids
CPT/HCPCS: 43239; 88305; J2704; J7120

== ENCOUNTER 2022-03-11 14:25 | Outpatient (CLI) | payer BC, SELFPAY ==
--- NOTE | ~2022-03-11 | XR_ITS ---
EXAMINATION: XR chest 2V 03/11/2022 14:41 INDICATION: Cough PROCEDURE: 2 view chest COMPARISON: Comparison to multiple prior studies sequentially, with oldest reviewed study dated 08/23. FINDINGS: The lungs are clear. The cardiomediastinal silhouette is within normal limits. There are no pleural effusions. There is no pneumothorax suspected. IMPRESSION: 1: NO ACUTE CARDIOPULMONARY DISEASE. Reviewed, dictated and finalized at location B.
== END 2022-03-11 14:26 | disposition home or self-care (01) ==
PROVIDERS: PCP Family Medicine; Visit Provider Nurse Practitioner Family
DX: R05.9 Cough, unspecified (principal)
CPT/HCPCS: 71046

== ENCOUNTER → 2022-08-04 16:00 | Outpatient (CLI) | payer BC, SELFPAY ==
--- NOTE | ~2022-08-04 | MM_ITS ---
EXAMINATION: MM screening adi BI w loco HISTORY: Screening TECHNIQUE: Craniocaudal and mediolateral oblique 3-D tomosynthesis images were obtained and synthetic 2-D images were generated. CAD analysis was submitted and interpreted. COMPARISON: Comparison to multiple prior studies sequentially, with oldest reviewed study dated 01/14. BREAST PARENCHYMAL COMPOSITION: The breasts are heterogeneously dense, which may obscure small masses . FINDINGS: There is no evidence of suspicious mass, calcification, or architectural distortion to sugg est malignancy in either breast. There has been no suspicious interval change. IMPRESSION: 1. No mammographic evidence of malignancy. 2. Recommend routine screening mammography in one year. BI-RADS Category 1: Negative Reviewed, dictated and finalized at location A.
== END ==
PROVIDERS: Visit Provider Nurse Practitioner
DX: Z12.31 Encounter for screening mammogram for malignant neoplasm of breast (principal)
CPT/HCPCS: 77063; 77067

== ENCOUNTER 2022-09-14 11:25 | Outpatient (CLI) | payer BC, SELFPAY ==
--- NOTE | ~2022-09-14 | XR_ITS ---
EXAMINATION: XR chest 2V 09/14/2022 11:40 INDICATION: Shortness of breath PROCEDURE: 2 view chest COMPARISON: Comparison to multiple prior studies sequentially, with oldest reviewed study dated 08/24. FINDINGS: The lungs are clear. The cardiomediastinal silhouette is within normal limits. There are no pleural effusions. There is no pneumothorax suspected. IMPRESSION: 1: NO ACUTE CARDIOPULMONARY DISEASE. Reviewed, dictated and finalized at location B. RUCTOR BRIDGE
--- NOTE | 2022-09-14 11:44 | ECG_ITS ---
Measurements Intervals Gleason Rate: 89 P: 68 GA: 138 QRS: 56 QRSD: 92 T: 53 QT: 343 QTc: 417 Interpretive Statements SINUS RHYTHM BASELINE ARTIFACT- II, III, AVR, AVF, V6 NORMAL ECG NO PREVIOUS ECG AVAILABLE FOR COMPARISON Electronically Signed On 09-14-2022 12:02:57 GLOBAL ACCOUNT DIRECTOR by Tra Maurer D.O.
== END 2022-09-14 11:26 | disposition home or self-care (01) ==
LOC: ANHIMG 11:27
PROVIDERS: PCP Nurse Practitioner Family; Visit Provider Nurse Practitioner Family
DX: R00.0 Tachycardia, unspecified (principal); R06.02 Shortness of breath
CPT/HCPCS: 71046; 93005

== ENCOUNTER 2022-09-18 10:08 | Emergency (ER) | payer BC, SELFPAY ==
[2022-09-18 10:46] VITALS: BP 116/73; PULSE 119; RESP 18; TEMP 36.2; O2SAT 100
--- NOTE | 2022-09-18 11:17 | ED.URI ---
HPI - URI/Sore Throat General Chief Complaint: Upper Respiratory Infection Stated Complaint: Sinus, Fever, Cough Time Seen by Provider: 09/18/22 11:17 Source: patient and RN notes reviewed Mode of arrival: ambulatory Limitations: no limitations History of Present Illness HPI Narrative: 52-year-old female presenting for complaint of headache, body aches, sinus pressure/congestion, cough, fever/chills. Onset 2 days. She endorses sick contacts 3 days ago with flu and COVID. She denies shortness of breath, wheezing, nausea, vomiting or diarrhea. She is not taking anything for symptoms. MD elicited complaint: cough Related Data Home Medications Medication Instructions Recorded Confirmed estradiol 1 mg tablet 1 mg PO DAILY 02/04/21 09/18/22 Allergies Allergy/AdvReac Type Severity Reaction Status Date / Time Penicillins AdvReac Mild Vomiting Verified 09/18/22 10:59 amoxicillin [From Augmentin] AdvReac Vomiting Verified 09/18/22 10:59 clavulanic acid AdvReac Vomiting Verified 09/18/22 10:59 [From Augmentin] Review of Systems Review of Systems: CONSTITUTIONAL: Endorses malaise, chills, sweats, fever EYES: Denies visual changes, redness, or discharge ENT: Per HPI CARDIOVASCULAR: Denies chest pain, palpitations, edema RESPIRATORY: Reports cough, post nasal drainage. Denies dyspnea GASTROINTESTINAL: Denies abdominal pain, nausea, vomiting, diarrhea SKIN: Denies rash or itching MUSCULOSKELETAL: Endorses myalgia PMFSH Past Medical History Medical History Adult BMI 25.0-25.9 kg/sq m Asthma BMI 23.0-23.9, adult GERD (gastroesophageal reflux disease) High cholesterol Hx of gastric ulcer Hyperinflation of lungs Irritable bowel syndrome with constipation Left wrist injury Nausea Pain of radial side of wrist Surgical History Surgical History H/O: hysterectomy History of lumpectomy of left breast Family History Family History Father Mother Diabetes mellitus Hypertension Obesity Neuropathy Depression Thyroid disorder Sibling Hyperlipidemia Depression Thyroid disorder Other Asthma Hypertension Depression Grandparent Lung cancer Bladder cancer Diabetes mellitus Hypertension Depression Heart disease Cerebrovascular accident Thyroid disorder Social History Social History Smoking status: Never smoker Second hand tobacco smoke exposure: No Alcohol intake: never Substance use: never Substance use type: does not use Additional living arrangements comments: LIVES WITH SPOUSE Y[facility] [phone] 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 TMs pearly ledesma with dull light reflex bilaterally; no tragal tenderness. CHEST: Clear to auscultation, breath sounds equal. No wheezing, rhonchi, rales, or stridor. No respiratory distress, speaks in full sentences. HEART: Regular rate and rhythm. No murmur heard. SKIN: Warm, dry, no rash. NEURO: Alert and oriented x3. PSYCH: Normal mood and affect Course Course Emergency Course: Patient is aware of diagnosis, understands and agrees to treatment plan. Anticipatory guidance given. Patient agrees to follow-up as directed and is aware of reasons to seek care at the emergency department. Portions of this record may have been created with voice recognition software Level of Care: Express Care Visit Vital Signs Vital signs: Vital Signs Temperature 97.1 F L 09/18/22 10:46 Pulse Rate 119 H 09/18/22 10:46 Respiratory Rate 18 09/18/22 10:46 Blood Pressure 116/73 09/18/22 10:46 Puls
== END 2022-09-18 11:30 | disposition home or self-care (01) ==
PROVIDERS: Emergency Provider Nurse Practitioner Family; PCP Nurse Practitioner Family
DX: U07.1 COVID-19 (principal); J45.909 Unspecified asthma, uncomplicated; K21.9 Gastro-esophageal reflux disease without esophagitis; E78.00 Pure hypercholesterolemia, unspecified
CPT/HCPCS: 87426; 87804; 99213; C9803; G0463

== ENCOUNTER 2022-12-01 14:51 | Outpatient (CLI) | payer BC, SELFPAY ==
--- NOTE | 2022-12-01 15:05 | ECHO_ITS ---
Patient Info Name: Barbara Kaur Age: 52 years : 1970 Gender: Female Ht: 68 in Wt: 165 lbs BSA: 1.90 m2 HR: 90 bpm BP: 128 / 80 mmHg Technical Quality: Good Exam Date: 12/01/2022 3:10 PM Exam Location: [facility] Patient Status: Outpatient Admit Date: 12/01/2022 Staff Ordering Physician: Tra Maurer DO Plastic Tile Setter: Ashley Chambers RDCS Attending Provider: Tra Maurer DO Referring Physician: Erasto CALVIN; Exam Type: CA echo doppler color flow Study Info Indications - palpitations Complete two-dimensional, color flow and Doppler transthoracic echocardiogram is performed. Summary 1. Complete two-dimensional, color flow and Doppler transthoracic echocardiogram is performed. 2. Left ventricular chamber dimension is normal. 3. Left ventricular systolic function is normal, estimated at 60-65%. 4. The left ventricular diastolic function is grade I diastolic dysfunction. 5. E/e' 7 is not elevated. 6. Global longitudinal strain is normal at -18.5%. 7. There is mild tricuspid valve regurgitation. 8. No pulmonary hypertension, estimated pulmonary arterial systolic pressure is 26 mmHg. Left Ventricle E/e' 7 is not elevated. Global longitudinal strain is normal at -18.5%. Left ventricular chamber dimension is normal. Left ventricular systolic function is normal, estimated at 60-65%. The left ventricular diastolic function is grade I diastolic dysfunction. Right Ventricle Right ventricular chamber dimension is normal. Right ventricular systolic function is normal. Left Atria Left atrial chamber dimension is normal. Right Atria Right atrial chamber dimension is normal. Aortic Valve The aortic valve is trileaflet. There is no aortic valve stenosis. There is no aortic valve regurgitation. Pulmonic Valve There is no pulmonic regurgitation. Mitral Valve There is no mitral valve stenosis. There is no mitral valve regurgitation. Tricuspid Valve There is mild tricuspid valve regurgitation. No pulmonary hypertension, estimated pulmonary arterial systolic pressure is 26 mmHg. Pericardium/Pleural There is no pericardial effusion. Inferior Vena Cava Normal inferior vena cava with >50% collapse upon inspiration consistent with normal right atrial pressure, 5 mmHg. Aorta The aortic root size at the sinus of Valsalva is normal. Left Ventricular Outflow Tract Name Value Normal LVOT 2D LVOT Diameter 2.0 cm LVOT Doppler LVOT Peak Gradient 6 mmHg LVOT Mean Gradient 3 mmHg LVOT VTI 23 cm LVOT VTI/AV VTI Ratio 0.9 LVOT Stroke Volume 74 ml LVOT CO 15.0 l/min LVOT CI 7.9 l/min/m2 Pulmonic Valve Name Value Normal PV Doppler
== END 2022-12-01 14:52 | disposition home or self-care (01) ==
LOC: ANHCARD 14:52
PROVIDERS: PCP Nurse Practitioner Family; Visit Provider Internal Medicine Cardiovascular Disease
DX: R00.2 Palpitations (principal)
CPT/HCPCS: 93306

== ENCOUNTER 2022-12-02 12:22 | Emergency (ER) | payer BC, SELFPAY ==
--- NOTE | ~2022-12-02 | XR_ITS ---
EXAMINATION: XR finger 1st RT min 2V DATE: 12/02/2022 13:31 INDICATION: Right thumb foreign body. TECHNIQUE: 3 views of right thumb were obtained. COMPARISON: None. FINDINGS: Bone alignment is normal. No fracture. There is mild osteoarthritis of first carpometacarpa l joint and first interphalangeal joint. IMPRESSION: 1. No radiopaque foreign body. 2. Mild polyarticular osteoarthritis. Reviewed, dictated and finalized at location A. [facility]
--- NOTE | ~2022-12-02 | XR_ITS ---
EXAMINATION: XR chest 2V DATE: 12/02/2022 13:31 INDICATION: Productive cough. TECHNIQUE: Frontal and lateral views of the chest were obtained. COMPARISON: Chest 2 views 09/14/2022 FINDINGS: The chest demonstrates clear lungs without pneumonia, pleural effusion, or pneumothorax. Th e heart size is normal. There is mild chronic anterior wedging of multiple vertebral bodies. IMPRESSION: 1. No acute cardiopulmonary disease. Reviewed, dictated and finalized at location A. ER PULLER
--- NOTE | 2022-12-02 12:33 | ED.URI ---
HPI - URI/Sore Throat General Chief Complaint: Upper Respiratory Infection Stated Complaint: Wound to right thumb; sore throat, SOB, prod. coug Time Seen by Provider: 12/02/22 13:05 Source: patient and RN notes reviewed Mode of arrival: ambulatory Limitations: no limitations History of Present Illness HPI Narrative: 52-year-old female presents with multiple concerns. She reports 10 day history of cough, shortness of breath, productive cough and chest congestion, hoarse voice. She reports she thinks she has ?long COVID?. She has also been seeing a mortgage loan reviewer for her chronic shortness of breath and fast heart rate. Reports she has a history of asthma and since she had COVID has needed her rescue inhaler more frequently, she last used it today. She also reports she has been using a daily inhaler. She denies fevers or chest pain. She in a separate complaint she reports a wound on the palmar aspect of her right 1st digit that has been draining freely drainage. She reports in August she had a puncture wound on that finger from a metal object and has had intermittent pain since that time. She reports if her lid drainage started recently. MD elicited complaint: cough and other (Finger wound) Related Data Home Medications Medication Instructions Recorded Confirmed estradiol 1 mg tablet 1 mg PO DAILY 02/04/21 11/07/22 alprazolam 0.5 mg tablet 0.5 mg PO QHS PRN 11/07/22 11/07/22 bupropion HCl 300 mg 24 hr tablet, 300 mg PO QAM 11/07/22 11/07/22 extended release fluticasone propionate 44 1 inh inhalation ONCE 11/07/22 11/07/22 mcg/actuation HFA aerosol inhaler (Flovent HFA) levocetirizine 5 mg tablet (Xyzal) 5 mg PO DAILY 11/07/22 11/07/22 zolpidem 10 mg tablet 10 mg PO DAILY 11/07/22 11/07/22 Back Injections 12/02/22 atomoxetine 40 mg capsule mg PO 12/02/22 topiramate 50 mg tablet mg 12/02/22 Allergies Allergy/AdvReac Type Severity Reaction Status Date / Time Penicillins AdvReac Mild Vomiting Verified 12/02/22 12:45 amoxicillin [From Augmentin] AdvReac Vomiting Verified 12/02/22 12:45 clavulanic acid AdvReac Vomiting Verified 12/02/22 12:45 [From Augmentin] Review of Systems Review of Systems: CONSTITUTIONAL: Reports malaise. Denies chills, sweats, or fever. EYES: Denies visual changes, redness, or discharge. ENT: Denies rhinorrhea, congestion, sinus pain, otalgia and sore throat.. Reports hoarse voice CARDIOVASCULAR: Denies chest pain, palpitations, or edema. RESPIRATORY: Reports productive cough, chest congestion, dyspnea. GASTROINTESTINAL: Denies abdominal pain, nausea, vomiting, diarrhea SKIN: Reports a chronic wound on her right thumb purulence drainage MUSCULOSKELETAL: Denies myalgia. NEUROLOGIC: Denies headache. All systems reviewed & are unremarkable except as noted in HPI and below PMFSH Past Medical History Medical History (Updated 12/02/22 @ 13:53 by Kina Finn NP) Adult BMI 25.0-25.9 kg/sq m Asthma BMI 23.0-23.9, adult Gas bloat syndrome GERD (gastroesophageal reflux disease) High cholesterol Hx of gastric ulcer Hyperinflation of lungs Irritable bowel syndrome with constipation Left wrist injury Nausea Pain of radial side of wrist Surgical History Surgical History H/O: hysterectomy History of lumpectomy of left breast Family History Family History Father Mother Diabetes mellitus Hypertension Obesity Neuropathy Depression Thyroid disorder Sibling Hyperlipidemia Depression Thyroid disorder Other Asthma Hypertension Depression Grandparent Lung cancer Bladder cancer Diabetes mellitus Hypertension Depression Heart disease Cerebrovascular accident Thyroid disorder Social History Social History Smoking status: Never smoker Second hand tobacco smoke exposure: No Alcohol intake:
[2022-12-02 12:35] VITALS: BP 129/84; PULSE 110; RESP 16; TEMP 36.6; O2SAT 99
== END 2022-12-02 13:57 | disposition home or self-care (01) ==
PROVIDERS: Emergency Provider Nurse Practitioner
DX: J06.9 Acute upper respiratory infection, unspecified (principal); R05.9 Cough, unspecified; S61.001A Unspecified open wound of right thumb without damage to nail, initial encounter; L08.9 Local infection of the skin and subcutaneous tissue, unspecified; W45.8XXA Other foreign body or object entering through skin, initial encounter; J45.909 Unspecified asthma, uncomplicated; K21.9 Gastro-esophageal reflux disease without esophagitis; E78.00 Pure hypercholesterolemia, unspecified; Z86.16 Personal history of COVID-19
CPT/HCPCS: 71046; 73140; 99214; G0463

== ENCOUNTER 2023-01-04 08:27 | Outpatient (CLI) | payer BC, SELFPAY ==
--- NOTE | 2023-01-04 08:35 | EST_ITS ---
Patient Info Name: Barbara Kaur Age: 52 years : 1970 Gender: Female Ht: 68 in Wt: 162 lbs BSA: 1.89 m2 HR: 92 bpm BP: 125 / 80 mmHg Heart Rhythm: Sinus Rhythm Exam Date: 01/04/2023 8:45 AM Exam Location: [facility] Stress Patient Status: Outpatient Admit Date: 01/04/2023 Staff Ordering Physician: Tra Maurer DO Attending Provider: Tra Maurer DO Exercise Technologist: Joycelyn Mills CT Exercise Physician: Tra Maurer DO Exam Type: CA stress test treadmill Study Info Indications R06.00 - Dyspnea, unspecified A treadmill exercise stress test was performed. Summary 1. 1. Negative Jerry exercise stress test for ischemic ST changes by ECG criteria. 2. 2. Reduced functional capacity, achieving 7 METs of workload. 3. 3. Appropriate HR response to exercise. 4. 4. Appropriate HR recovery at 1 minute post exercise. 5. 5. No imaging with stress testing. 6. 6. Patient informed of the above results. Protocol: Jerry Stress ECG Details Stage: REST Duration (min): 0 min : 49 sec Speed (mph): 0.0 Grade (%): 0 HR (bpm): 92 SBP (mmHg): 125 DBP (mmHg): 80 METS: --- Stage: REST Duration (min): 14 min : 19 sec Speed (mph): 0.0 Grade (%): 0 HR (bpm): 100 SBP (mmHg): 125 DBP (mmHg): 80 METS: --- Stage: STAGE 1 Duration (min): 1 min : 0 sec Speed (mph): 1.7 Grade (%): 10 HR (bpm): 113 SBP (mmHg): 125 DBP (mmHg): 80 METS: --- Stage: STAGE 1 Duration (min): 2 min : 0 sec Speed (mph): 1.7 Grade (%): 10 HR (bpm): 123 SBP (mmHg): 125 DBP (mmHg): 80 METS: --- Stage: STAGE 1 Duration (min): 3 min : 0 sec Speed (mph): 1.7 Grade (%): 10 HR (bpm): 130 SBP (mmHg): 135 DBP (mmHg): 83 METS: --- Stage: STAGE 2 Duration (min): 1 min : 0 sec Speed (mph): 2.5 Grade (%): 12 HR (bpm): 137 SBP (mmHg): 135 DBP (mmHg): 83 METS: --- Stage: STAGE 2 Duration (min): 2 min : 0 sec Speed (mph): 2.5 Grade (%): 12 HR (bpm): 145 SBP (mmHg): 139 DBP (mmHg): 79 METS: --- Stage: STAGE 2 Duration (min): 2 min : 2 sec Speed (mph): 2.5 Grade (%): 12 HR (bpm): 145 SBP (mmHg): 139 DBP (mmHg): 79 METS: --- Stage: RECOVERY Duration (min): 0 min : 57 sec Speed (mph): 0.0 Grade (%): 0 HR (bpm): 132 SBP (mmHg): 139 DBP (mmHg): 79 METS: --- Stage: RECOVERY Duration (min): 1 min : 57 sec Speed (mph): 0.0 Grade (%): 0 HR (bpm): 113 SBP (mmHg): 139 DBP (mmHg): 79 METS: --- Stage: RECOVERY Duration (min): 2 min : 57 sec Speed (mph): 0.0 Grade (%): 0 HR (bpm): 113 SBP (mmHg): 160 DBP (mmHg): 83 METS: --- Stage: RECOVERY Duration (min): 3 min : 10 sec Speed (mph): 0.0 Grade (%): 0 HR (bpm): 120 SBP (mmHg): 160 DBP (mmHg): 83 METS: --- Rest HR: 100 bpm Pe
== END 2023-01-04 08:28 | disposition home or self-care (01) ==
PROVIDERS: PCP Nurse Practitioner Family; Visit Provider Internal Medicine Cardiovascular Disease
DX: R07.9 Chest pain, unspecified (principal); E78.5 Hyperlipidemia, unspecified
CPT/HCPCS: 93017

== ENCOUNTER → 2023-04-24 08:48 | Outpatient (CLI) | payer BC, SELFPAY ==
--- NOTE | ~2023-04-24 | CT_ITS ---
EXAMINATION: CT sinus wo con DATE: 04/24/2023 08:59 INDICATION: Chronic sinusitis. Deviated septum. Nasal pressure. TECHNIQUE: Computed tomography (CT) of the paranasal sinuses was performed without intravenous contra st. Iterative reconstruction technique was employed. The dose-length product was 280.89 mGy-cm. COMPARISON: Head CT 10/09/2020 FINDINGS: The frontal, ethmoid, and sphenoid, and right maxillary sinuses are clear. There is mild mu cosal thickening in inferior left maxillary sinus. There is rightward deviation of the nasal septum. The ostiomeatal units are patent. IMPRESSION: 1. Rightward deviation of the nasal septum. 2. Mild mucosal thickening in left maxillary sinus. Reviewed, dictated and finalized at location A.
== END ==
PROVIDERS: PCP Otolaryngology; Visit Provider Otolaryngology
DX: J32.9 Chronic sinusitis, unspecified (principal); J34.2 Deviated nasal septum
CPT/HCPCS: 70486

== ENCOUNTER 2023-05-18 10:15 | Outpatient (CLI) | payer BC, SELFPAY ==
--- NOTE | 2023-05-24 11:35 | WPDSLEEPSTUD ---
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 She spent a significant amount of money and it worsened her TMJ. and it never worked for her. She also has asthma, allergies and is currently on allergy shots. She takes nasal steroids. She has depression and anxiety, sees a psychiatrist and uses a several medications including bupropion. In the past she has tried zolpidem, melatonin which had a paradoxical effect keeping her awake at night, lithium which also had a paradoxical effect and ramelteon prescribed by her psychiatrist. Other conditions include diastolic dysfunction and heartburn with ulcers. She has a deviated septum. She has poor quality sleep, she wakes up during the night and she is tired during the day. Her can not sleep in the same room with her because she kicks extensively as well as her snoring and gasping. She has had over 12 years of these symptoms. She uses Ambien every night fall asleep. She has acclimated to the FX and it will last for an hour or 2 but then she wakes during the night. She always sleeps on her side. She almost never sleeps on her back. She occasionally awakens from sleep feeling short of breath. She rarely awakens at night with heartburn, belching or coughing. She frequently snores and it is loud enough that others complain. She always has difficulty sleeping with a cold. She occasionally wakes up gasping for breath at night. She rarely sweats excessively at night or notices her heart pounding or beating irregularly at night. She rarely falls asleep during the day, never falls asleep involuntarily or while driving. She does not have loss of muscle tone with strong emotion. She frequently has daytime difficulties due to excessive sleepiness. She occasionally feels paralyzed on waking or falling asleep. She frequently has vivid dreamlike scenes on waking or falling asleep. She rarely feels afraid to go to sleep. She constantly has nightmares. She frequently remembers her dreams. She frequently has racing thoughts. She occasionally feels sad or depressed. She occasionally has anxiety. She frequently has muscular tension. She occasionally notices parts of her body jerking. She frequently kicks at night. She does not have crawling or aching feelings in her legs or any kind of leg pain at night. She occasionally has morning jaw pain. She frequently grinds her teeth at night. She occasionally is bothered by pain during the day. She rarely is awakened by pain at night. She occasionally wakes up feeling stiff in the morning with sore achy muscles and pain in the neck and spine. She has insomnia and concentration difficulties. She has claustrophobia. She has never tried CPAP due to claustrophobia. Normal bedtime is 9:00 p.m. taking an hour or longer to fall asleep. She typically wakes 4-5 times at night particularly at 3:00 a.m.. It is not for any particular reason. She does has a difficult time sleeping. She tries return to sleep. Her normal wake time is 5:30 a.m.. On weekends, bedtime is between 10:00 p.m. and 11:00 p.m.. Her wake time is been between 7:00 a.m. and 8:00 a.m.. She generally does not take naps. She is drowsy after waking for 3 hours or longer. She feels better later in the day, the evening compared to the mornings. She reports 11 lb weight loss in the last year. Habits: Never smoked. No caffeine, alcohol or recreational substances. [facility] Past Medical History Medical History (Updated 05/24/23 @ 11:56 by Rani Desai
[2023-05-24 11:59] VITALS: BMI 22.8
== END 2023-05-19 06:58 | disposition home or self-care (01) ==
LOC: ANHCSM 10:15
PROVIDERS: PCP Nurse Practitioner Family; Visit Provider Otolaryngology
DX: G47.33 Obstructive sleep apnea (adult) (pediatric) (principal); G47.61 Periodic limb movement disorder
CPT/HCPCS: 95810

== ENCOUNTER → 2023-07-19 09:10 | Outpatient (CLI) | payer BC, SELFPAY ==
--- NOTE | ~2023-07-19 | XR_ITS ---
XR chest 2V 07/19/2023 09:25 Indication: Chronic cough Procedure: 2 view chest Comparison: Comparison to multiple prior studies sequentially, with oldest reviewed study dated 06/02. Findings: Heart size normal. No focal air space disease, pulmonary edema, pleural effusion or suspect ed pneumothorax. Impression: 1: No acute cardiopulmonary disease. Reviewed, dictated and finalized at location B. Impression: 1: No acute cardiopulmonary disease.
== END ==
PROVIDERS: PCP Physician Assistant Medical; Visit Provider Physician Assistant Medical
DX: R05.3 Chronic cough (principal); Z77.120 Contact with and (suspected) exposure to mold (toxic)
CPT/HCPCS: 71046

== ENCOUNTER → 2023-12-05 10:15 | Outpatient (CLI) | payer BC, SELFPAY ==
--- NOTE | ~2023-12-05 | XR_ITS ---
XR chest 2V DATE: 12/05/2023 10:39 INDICATION: Influenza TECHNIQUE: 2 views COMPARISON: 07/19/2023 2 view chest FINDINGS: Normal heart size. No hilar or mediastinal enlargement. Moderate bilateral hyperinflation. No pulmonary infiltrate or consolidation, pleural effusion or pulmonary vascular congestion or pneumo thorax is detected. Osteopenia. IMPRESSION: Moderate bilateral hyperinflation; no active cardiopulmonary disease or significant bar[place] e since 07/19/2023 Reviewed, dictated and finalized at location L. 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
== END ==
PROVIDERS: PCP Family Medicine; Visit Provider Physician Assistant
DX: J11.1 Influenza due to unidentified influenza virus with other respiratory manifestations (principal); R91.8 Other nonspecific abnormal finding of lung field
CPT/HCPCS: 71046

== ENCOUNTER 2024-08-04 11:56 | Emergency (ER) | payer BC, SELFPAY ==
--- NOTE | 2024-08-04 11:58 | ED_ITS ---
HPI - URI/Sore Throat General Chief Complaint: Upper Respiratory Infection Stated Complaint: Fever/Headache/Throat Time Seen by Provider: 08/04/24 12:26 Source: patient and RN notes reviewed Mode of arrival: ambulatory Limitations: no limitations History of Present Illness HPI Narrative: 54-year-old female presents concern for one-week history of nasal congestion, drainage moving to her chest. Reports dry cough and chest congestion. Reports headache, body aches left ear pain and fatigue. Reports she began getting a fever up to 101. 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 MD elicited complaint: sore throat and nasal congestion Related Data Home Medications Medication Instructions Recorded Confirmed estradiol 1 mg tablet 1 mg PO DAILY 02/04/21 08/04/24 alprazolam 0.5 mg tablet 0.5 mg PO QHS PRN Anxiety 11/07/22 08/04/24 bupropion HCl 300 mg 24 hr tablet, 300 mg PO QAM 11/07/22 08/04/24 extended release levocetirizine 5 mg tablet (Xyzal) 5 mg PO DAILY 11/07/22 08/04/24 zolpidem 10 mg tablet 10 mg PO DAILY 11/07/22 08/04/24 atomoxetine 40 mg capsule 40 mg PO DAILY 12/02/22 08/04/24 mirabegron 50 mg tablet,extended 50 mg PO DAILY 03/29/23 08/04/24 release 24 hr (Myrbetriq) topiramate 50 mg tablet 50 mg PO DAILY 05/22/23 08/04/24 fluticasone propionate 50 1 spray intranasal BID 08/15/23 08/04/24 mcg/actuation nasal spray,suspension budesonide 160 mcg-glycopyr 9 2 inh inhalation BID 04/08/24 08/04/24 mcg-formot 4.8 mcg/actuation HFA inhaler (Breztri Aerosphere) Allergies Allergy/AdvReac Type Severity Reaction Status Date / Time mold Allergy Mild Congested Verified 08/04/24 12:01 Penicillins AdvReac Mild Vomiting Verified 08/04/24 12:01 amoxicillin [From Augmentin] AdvReac Vomiting Verified 08/04/24 12:01 clavulanic acid AdvReac Vomiting Verified 08/04/24 12:01 [From Augmentin] Review of Systems Review of Systems: CONSTITUTIONAL: Reports malaise, fatigue, fever. EYES: Denies visual changes, redness, or discharge. ENT: Reports rhinorrhea, congestion, otalgia and sore throat. CARDIOVASCULAR: Denies chest pain, palpitations, or edema. RESPIRATORY: Reports cough. Denies dyspnea. GASTROINTESTINAL: Denies abdominal pain, nausea, vomiting, diarrhea SKIN: Denies rash or itching. MUSCULOSKELETAL: Reports myalgia. NEUROLOGIC: Reports headache. All systems reviewed & are unremarkable except as noted in HPI and below PMFSH Past Medical History Medical History Asthma Depression with anxiety Gas bloat syndrome GERD (gastroesophageal reflux disease) High cholesterol Hx of gastric ulcer Hyperinflation of lungs Irritable bowel syndrome with constipation Left wrist injury Nausea Obstructive sleep apnea Pain of radial side of wrist Surgical History Surgical History H/O: hysterectomy History of lumpectomy of left breast Family History Family History Father Mother Diabetes mellitus Hypertension Obesity Neuropathy Depression Thyroid disorder Sibling Hyperlipidemia Depression Thyroid disorder Other Asthma Hypertension Depression Grandparent Lung cancer Bladder cancer Diabetes mellitus Hypertension Depression Heart disease Cerebrovascular accident Thyroid disorder Social History Social History Smoking status: Never smoker Second hand tobacco smoke exposure: No Alcohol intake: never Substance use: never Substance use type: does not use Lack of Transportation: No Lack of Food: Never True Current Housing: I Have Housing Concerned About Future Housing: No Difficulty Paying Gas/Electric Bills: No Difficulty Paying for Meds: No Currently Unemployed: No Education: Master's Degree or Higher Difficulty w/ Childcare or Family Care: No Living arrangements: with family Additional living arrangements comments: LIVES WITH SPOUSE YAS [phone] Occupation/Education: occupation 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 There is no relevant family history pertinent to the presenting complaint Exam Narrative: GENERAL: Well-appearing, well-nourished, and in no acute distress. HEAD: Normocephalic EYES: PERRLA, conjunctivae clear ENT: Nares clear. Mucous membranes moist. TM pearly ledesma with dull light reflex bilaterally; no tragal tenderness. Oropharynx not erythematous without lesions. Tonsils not enlarged and without exudate, no drooling, no hoarseness, no trismus, uvula midline. NECK: Supple. No lymphadenopathy CHEST: Clear to auscultation, breath sounds diminished. No wheezing, rhonchi, rales, or stridor. No respiratory distress, speaks in full sentences. HEART: Regular rate and rhythm. No murmur heard. SKIN: Warm, dry, no rash. NEURO: Alert and oriented x3. PSYCH: Normal mood and affect Course Course Emergency Course: Patient is aware of diagnosis, understands and agrees to treatment plan. Anticipatory guidance given. Patient agrees to follow-up as directed and is aw are of reasons to seek care at the emergency department. Portions of this record may have been created with voice recognition software Level of Care: Express Care Visit Vital Signs Vital signs: Reviewed. MDM - URI/Sore Throat MDM Narrative Medical decision making narrative: Differential diagnosis considered: Bass virus, strep pharyngitis, allergic rhinitis, upper respiratory tract infection, sinusitis, rhinosinusitis, nasopharyngitis. viral pharyngitis, otitis media, otitis externa, pneumonia, bronchitis, viral cough syndrome, viral syndrome, and influenza. Exam findings show no acute concerns or changes; patient is non-toxic appearing and is in no distress. Patient is appropriate for outpatient treatment and follow-up. Lab Data Attestation: I reviewed the patient's lab results. Critical Care Time Critical Care Time Critical Care Time: No Discharge Plan Discharge Clinical Impression: Lower respiratory infection Patient Disposition: Home, Self-Care Condition: Stable Instructions: Antibiotic Form, Acute Bronchitis (ED) Additional Instructions: 1) Please follow-up with your primary care doctor in the next 1-2 days. 2) If you have any worsening of symptoms or any other urgent concerns please go to the ER. 3) Please take medications as prescribed and continue taking your home medications as usual. 4) Please read and follow information included in wilman tsang instructions. Prescriptions: New doxycycline monohydrate 100 mg tablet 100 mg PO BID 7 Days Qty: 14 0RF prednisone 20 mg tablet 40 mg PO DAILY 5 Days Qty: 10 0RF No Action atomoxetine 40 mg capsule 40 mg PO DAILY topiramate 50 mg tablet 50 mg PO DAILY estradiol 1 mg tablet 1 mg PO DAILY levocetirizine [Xyzal] 5 mg tablet 5 mg PO DAILY bupropion HCl 300 mg tablet extended release 24 hr 300 mg PO QAM alprazolam 0.5 mg tablet 0.5 mg PO QHS PRN (Reason: Anxiety) zolpidem 10 mg tablet 10 mg PO DAILY Myrbetriq 50 mg tablet extended release 24 hr 50 mg PO DAILY Breztri Aerosphere 160-9-4.8 mcg/actuation HFA aerosol inhaler 2 inh inhalation BID mupirocin 2 % ointment 1 applic topical BID Qty: 22 0RF fluticasone propionate 50 mcg/actuation spray,suspension 1 spray intranasal BID Rx Instructions: administer into each nostril omeprazole 40 mg capsule,delayed release(DR/EC) 40 mg PO DAILY 90 Days Qty: 90 3RF ondansetron 4 mg tablet,disintegrating See Rx Instructions .ROUTE .COMPLEX Qty: 60 0RF Dose Instruction: DISSOLVE 1 TABLET ON THE TONGUE EVERY 6 HOURS NEEDED FOR NAUSEA OR VOMITING Rx Instructions: DISSOLVE 1 TABLET ON THE TONGUE EVERY 6 HOURS NEEDED FOR NAUSEA OR VOMITING Linzess 72 mcg capsule 72 mcg PO DAILY 30 Days Qty: 30 5RF Linzess 72 mcg capsule 0RF albuterol sulfate [ProAir HFA] 90 mcg/actuation HFA aerosol inhaler 1 inh INHALATION Q4H PRN (Reason: shortness of breath or wheezing) Qty: 6.7 3RF rosuvastatin 10 mg tablet 10 mg PO DAILY Qty: 90 3RF pregabalin 150 mg capsule 150 mg PO .hs 90 Days Qty: 90 1RF Rx Instructions: Take 2 hours before bedtime. montelukast [Singulair] 10 mg tablet 10 mg PO QHS Qty: 90 1RF ferrous sulfate [FeroSul] 325 mg (65 mg iron) tablet See Rx Instructions .ROUTE .COMPLEX Qty: 90 0RF Dose Instruction: TAKE 1 TABLET BY MOUTH DAILY 2 HOURS BEFORE A MEAL OR 4 HOURS AFTER; DO NOT TAKE WITH ANTACIDS Rx Instructions: TAKE 1 TABLET BY MOUTH DAILY 2 HOURS BEFORE A MEAL OR 4 HOURS AFTER; DO NOT TAKE WITH ANTACIDS pregabalin 150 mg capsule 150 mg PO QHS 90 Days Qty: 90 0RF Follow-up/Referrals: UNKNOWN,DOCTOR [Non-Staff] - Stand Alone Forms: Work/School Release IP Time of Disposition: 12:34
[2024-08-04 12:15] VITALS: BP 115/77; PULSE 93; RESP 18; TEMP 36.7; O2SAT 100
[2024-08-04 12:27] LABS: EDSTREPNEGPOS1 Negative (Negative)
== END 2024-08-04 12:40 | disposition home or self-care (01) ==
PROVIDERS: Emergency Provider Nurse Practitioner
DX: J22 Unspecified acute lower respiratory infection (principal); J45.909 Unspecified asthma, uncomplicated; K21.9 Gastro-esophageal reflux disease without esophagitis; E78.00 Pure hypercholesterolemia, unspecified; F41.8 Other specified anxiety disorders
CPT/HCPCS: 87081; 87880; 99213; G0463

== ENCOUNTER 2024-08-29 14:12 | Emergency (ER) | payer BC, SELFPAY ==
--- NOTE | ~2024-08-29 | CT_ITS ---
EXAMINATION: CTA brain carotid DATE: 08/29/2024 16:42 INDICATION: Headache. Diplopia. TECHNIQUE: Computed tomographic angiography (CTA) of the head was performed with 100 mL Omnipaque-350 intravenous contrast. CTA of the neck was performed with intravenous contrast. Automated exposure co ntrol and iterative reconstruction technique were employed. The dose-length product was 985.87 mGy-cm . Maximum intensity projection and volume rendered 3D-reconstructions were created by the [employer] t on a separate workstation. COMPARISON: Head CT 08/29/2024 FINDINGS: HEAD CTA: There is no intracranial hemorrhage, acute infarction, or abnormal intracranial mass lesion . The ventricles are normal in size. The mastoid air cells are normal. There is mild mucosal thickeni ng in left maxillary sinus. The orbits are normal. The vertebral arteries are codominant. There is no significant stenosis of basilar artery or the posterior cerebral arteries. The posterior communicati ng arteries are normal. There is no significant stenosis of the intracranial internal carotid arterie s or anterior or middle cerebral arteries. Anterior communicating artery is normal. There is no aneur ysm. NECK CTA: There is mild scarring at the lung apices. There are no pathologically enlarged lymph nodes . There is no significant stenosis of the vertebral arteries. There is undulation of the schneider of the internal carotid arteries, consistent with fibromuscular dysplasia. There is 0% stenosis of the prox imal right internal carotid artery relative to normal distal artery lumen diameter (NASCET criteria). There is 0% stenosis of the proximal left internal carotid artery relative to normal distal artery l umen diameter. There is severe cervical spondylosis. IMPRESSION: 1. Normal brain. No aneurysm or significant intracranial arterial stenosis. 2. 0% stenosis of the proximal internal carotid arteries relative to normal distal artery lumen diame ters (NASCET criteria). Reviewed, dictated and finalized at location A. MANAGER IMPRESSION: 1. Normal brain. No aneurysm or significant intracranial arterial stenosis. 2. 0% stenosis of the proximal internal carotid arteries relative to normal dis ramakrishna artery lumen diameters (NASCET criteria).
--- NOTE | ~2024-08-29 | CT_ITS ---
EXAMINATION: CT brain wo con DATE: 08/29/2024 14:49 INDICATION: Headache. Vision change. TECHNIQUE: Computed tomography (CT) of the head was performed without intravenous contrast. The mA wa s adjusted according to patient size. Iterative reconstruction technique was employed. The dose-lengt h product was 605.33 mGy-cm. COMPARISON: Head CT 10/09/2020 FINDINGS: There is no intracranial hemorrhage, acute infarction, or abnormal intracranial mass lesion . The ventricles are normal in size. The orbits are normal. There is mild mucosal thickening in left maxillary sinus. The mastoid air cells are normal. IMPRESSION: 1. Normal brain. Reviewed, dictated and finalized at location A. LLOGRAPH TECHNICIAN IMPRESSION: 1. Normal brain.
[2024-08-29 14:19] VITALS: BP 125/77; PULSE 86; RESP 16; TEMP 37; O2SAT 99
[2024-08-29 14:35] VITALS: BP 120/80; PULSE 85; RESP 18; TEMP 36.7; O2SAT 97
--- NOTE | 2024-08-29 15:49 | ECG_ITS ---
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
[2024-08-29 16:07] LABS: Basophils Percent Auto 0.3 % (0.2-1.2); Eosinophils Absolute Auto 0.1 K/mm3 (0-0.3); Eosinophils Percent Auto 0.7 % (0-4.4); Hematocrit 39.9 % (37.0-47.0); Hemoglobin 12.8 g/dL (12.0-15.0); Immature Granulocyte Absolute 0.01 K/mm3 (0.00-0.031); Immature Granulocyte Percent A 0.1 % (0-0.5); Lymphocytes Absolute Auto 2.35 K/mm3 (0.9-3.2); Lymphocytes Percent Auto 34.2 % (18.3-44.2); Mean Corpuscular HGB Conc 32.1 g/dl (32-36); Mean Corpuscular Hemoglobin 29.6 pg (26-34); Mean Corpuscular Volume 92.1 fl (80-100); Mean Platelet Volume 9.4 fl (7.4-10.4); Monocytes Absolute Auto 0.6 K/mm3 (0.1-0.6); Monocytes Percent Auto 8.7 % (2.6-8.5); Neutrophils Absolute Auto 3.9 K/mm3 (1.3-6.7); Platelet Count Result 281 k/mm3 (150-375); Red Blood Count 4.33 M/mm3 (4.2-5.4); Red Cell Distribution Width 13.3 % (11.5-14.5); White Blood Count 6.9 K/mm3 (4.5-10.0)
[2024-08-29 16:17] LABS: Alanine Aminotransferase 24 U/L (6-35); Albumin Level 4.3 g/dL (3.5-5.1); Alkaline Phosphatase 65 U/L (38-126); Anion Gap 7 mmol/L (4-12); Aspartate Amino Transferase 23 U/L (14-36); Bilirubin,Total 0.7 mg/dL (0.2-1.3); Blood Urea Nitrogen 12 mg/dL (7-17); Calcium 9.2 mg/dL (8.4-10.2); Carbon Dioxide 25 mmol/L (22-30); Chloride 105 mmol/L (98-107); Estimated CRCL calculation 51 ml/min; Estimated Glomerular Filt Rate 51; Glucose 90 mg/dL (65-110); Potassium 3.6 mmol/L (3.4-5.0); Sodium 137 mmol/L (137-145)
[2024-08-29] MEDS: METOCLOPRAMIDE HCL INJ 10 MG/2 ML VIAL IV PUSH (16:19)
[2024-08-29] MEDS: KETOROLAC 30 MG/ML VIAL (*BKC) IV PUSH (16:19)
[2024-08-29] MEDS: diphenhydrAMINE HCl INJ 50 MG/ML VIAL 25 MG IV PUSH (16:19)
[2024-08-29 16:22] LABS: Prothrombin Time 13.3 Seconds (11.1-14.7)
[2024-08-29 16:28] LABS: Troponin I < 0.012 ng/mL (0.000-0.034)
[2024-08-29] MEDS: SODIUM CHLORIDE 0.9% IV 50 ML (16:55)
[2024-08-29 17:03] VITALS: BP 106/65; PULSE 86; RESP 20; O2SAT 99
[2024-08-29 18:21] VITALS: BP 105/66; PULSE 82; RESP 20; O2SAT 99
--- NOTE | 2024-08-29 19:09 | ED.NEUROSD ---
HPI - Neuro Symptoms/Deficit General Chief Complaint: Neuro Symptoms/Deficit Stated Complaint: left sided headache, double vision Time Seen by Provider: 08/29/24 15:31 History of Present Illness HPI Narrative: Patient is a 54-year-old female who presents ER with double vision headache. Woke up this morning has been having aching left-sided headache behind her eye. Has had some blurred vision and noticed that when she was driving she is having double vision of the lines and other cars. She continues to have double vision approximately 20 ft away from herself but not up close. No numbness or tingling or weakness in arm or leg. No history of CVA. No real history of migraine. Has not tried any pain medication. Related Data Home Medications Medication Instructions Recorded Confirmed estradiol 1 mg tablet 1 mg PO DAILY 02/04/21 08/26/24 alprazolam 0.5 mg tablet 0.5 mg PO QHS PRN Anxiety 11/07/22 08/26/24 bupropion HCl 300 mg 24 hr tablet, 300 mg PO QAM 11/07/22 08/26/24 extended release levocetirizine 5 mg tablet (Xyzal) 5 mg PO DAILY 11/07/22 08/26/24 zolpidem 10 mg tablet 10 mg PO DAILY 11/07/22 08/26/24 atomoxetine 40 mg capsule 40 mg PO DAILY 12/02/22 08/26/24 mirabegron 50 mg tablet,extended 50 mg PO DAILY 03/29/23 08/26/24 release 24 hr (Myrbetriq) topiramate 50 mg tablet 50 mg PO DAILY 05/22/23 08/26/24 fluticasone propionate 50 1 spray intranasal BID 08/15/23 08/26/24 mcg/actuation nasal spray,suspension budesonide 160 mcg-glycopyr 9 2 inh inhalation BID 04/08/24 08/26/24 mcg-formot 4.8 mcg/actuation HFA inhaler (Breztri Aerosphere) Allergies Allergy/AdvReac Type Severity Reaction Status Date / Time mold Allergy Mild Congested Verified 08/26/24 15:37 Penicillins AdvReac Mild Vomiting Verified 08/26/24 15:37 amoxicillin [From Augmentin] AdvReac Vomiting Verified 08/26/24 15:37 clavulanic acid AdvReac Vomiting Verified 08/26/24 15:37 [From Augmentin] Review of Systems Review of Systems: All systems reviewed & are unremarkable except as noted in HPI and below Constitutional: Constitutional: Reports no additional constitutional complaints Cardiovascular: Cardiovascular: Reports no additional cardiovascular complaints Respiratory: Respiratory: Reports no additional respiratory complaints Gastrointestinal: Gastrointestinal: Reports no additional gastrointestinal complaints Neurologic: Reports headache(s), Denies focal weakness and Denies numbness PMFSH Past Medical History Medical History Asthma Depression with anxiety Gas bloat syndrome GERD (gastroesophageal reflux disease) High cholesterol Hx of gastric ulcer Hyperinflation of lungs Irritable bowel syndrome with constipation Left wrist injury Nausea Obstructive sleep apnea Pain of radial side of wrist Surgical History Surgical History H/O: hysterectomy History of lumpectomy of left breast Family History Family History Father Mother Diabetes mellitus Hypertension Obesity Neuropathy Depression Thyroid disorder Sibling Hyperlipidemia Depression Thyroid disorder Other Asthma Hypertension Depression Grandparent Lung cancer Bladder cancer Diabetes mellitus Hypertension Depression Heart disease Cerebrovascular accident Thyroid disorder Social History Social History Smoking status: Never smoker Second hand tobacco smoke exposure: No Alcohol intake: never Substance use: never Substance use type: does not use Lack of Transportation: No Lack of Food: Never True Current Housing: I Have Housing Concerned About Future Housing: No Difficulty Paying Gas/Electric Bills: No Difficulty Paying for Meds: No Currently Unemployed: No Education: Master's Degree or Higher Difficulty w/ Childcare or Family Care: No Living arrangements: with family Additional living arrangements comments: LIVES WITH SPOUSE [facility] [phone] Occupation/Education: occupation 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 HEAD: Normocephalic, atraumatic. EYES: PERRLA and EOMI. ENT: Mucous membranes moist. CHEST: Clear to auscultation. No respiratory distress. HEART: Regular rate and rhythm. Normal peripheral pulses. ABDOMEN: Soft, nontender, nondistended. EXTREMITIES: Normal range of motion. No edema. SKIN: Warm, dry, no rash. NEURO: No focal deficits. Alert and oriented x3. PSYCH: Normal mood and affect. Course Course Emergency Course: Migraine resolved with Toradol / Reglan/Benadryl. no longer with blurred or double vision. NIH stroke scale was 0. Appropriate for discharge. Vital Signs Vital signs: Vital Signs Temperature 98.6 F 08/29/24 14:19 Pulse Rate 86 08/29/24 14:19 Respiratory Rate 16 08/29/24 14:19 Blood Pressure 125/77 08/29/24 14:19 Pulse Oximetry 99 08/29/24 14:19 Oxygen Delivery Room Air 08/29/24 14:19 Temperature 98.1 F 08/29/24 14:35 Pulse Rate 82 08/29/24 18:21 Respiratory Rate 20 08/29/24 18:21 Blood Pressure 105/66 08/29/24 18:21 Pulse Oximetry 99 08/29/24 18:21 Oxygen Delivery Room Air 08/29/24 14:35 MDM - Neuro Symptoms/Deficit Lab Data 08/29/24 16:02 08/29/24 16:02 Labs: Lab Results 08/29/24 Range/Units 16:02 WBC 6.9 (4.5-10.0) K/mm3 RBC 4.33 (4.2-5.4) M/mm3 Hgb 12.8 (12.0-15.0) g/dL Hct 39.9 (37.0-47.0) % MCV 92.1 (80-100) fl MCH 29.6 (26-34) pg MCHC 32.1 (32-36) g/dl RDW 13.3 (11.5-14.5) % Plt Count 281 (150-375) k/mm3 MPV 9.4 (7.4-10.4) fl Immature Gran % (Auto) 0.1 (0-0.5) % Neut % (Auto) 56.0 (45.5-73.1) % Lymph % (Auto) 34.2 (18.3-44.2) % Valley % (Auto) 8.7 H (2.6-8.5) % Eos % (Auto) 0.7 (0-4.4) % Baso % (Auto) 0.3 (0.2-1.2) % Lymph # (Auto) 2.35 (0.9-3.2) K/mm3 Valley # (Auto) 0.6 (0.1-0.6) K/mm3 Eos # (Auto) 0.1 (0-0.3) K/mm3 Baso # (Auto) 0.0 (0.0-0.1) K/mm3 Abs Immat Gran (auto) 0.01 (0.00-0.031) K/mm3 Absolute Neuts (auto) 3.9 (1.3-6.7) K/mm3 Absolute Nucleated RBC 0.000 (0.0-0.012) K/mm3 Nucleated RBC % 0.0 (0.0-0.2) % PT 13.3 (11.1-14.7) Seconds INR 1.0 APTT 28.0 (22.3-36.8) Seconds Sodium 137 (137-145) mmol/L Potassium 3.6 (3.4-5.0) mmol/L Chloride 105 (98-107) mmol/L Carbon Dioxide 25 (22-30) mmol/L Anion Gap 7 (4-12) mmol/L BUN 12 D (7-17) mg/dL Creatinine 1.10 H (0.7-1.0) mg/dL Estim Creat Clear Calc 51 ml/min Estimated GFR 51 L (59 - ) Glucose 90 (65-110) mg/dL Calcium 9.2 (8.4-10.2) mg/dL Total Bilirubin 0.7 (0.2-1.3) mg/dL AST 23 (14-36) U/L ALT 24 (6-35) U/L Alkaline Phosphatase 65 (38-126) U/L Troponin I < 0.012 (0.000-0.034) ng/mL Total Protein 8.0 (6.3-8.2) g/dL Albumin 4.3 (3.5-5.1) g/dL Imaging Data Radiologist's impression: ITS Impressions Head CT 08/29/24 15:00 IMPRESSION: 1. Normal brain. Head/Neck CTA 08/29/24 16:54 IMPRESSION: 1. Normal brain. No aneurysm or significant intracranial arterial stenosis. 2. 0% stenosis of the proximal internal carotid arteries relative to normal distal artery lumen diameters (NASCET criteria). Discharge Plan Discharge Clinical Impression: Migraine Patient Disposition: Home, Self-Care Condition: Stable Instructions: Migraine Headache (ED) Additional Instructions: Try to stay well hydrated at home. Please return to the emergency department if you develop worsening of your headache or a new headache which is severe, associated with vision changes, associated with neck stiffness or fever, or if it is different from any other headache that you have had before. Return to the emergency department if you develop numbness, weakness or tingling or problems with coordination, or if you develop severe nausea and vomiting and are unable to keep down fluids at home. Prescriptions: No Action doxycycline monohydrate 100 mg tablet 100 mg PO BID 7 Days Qty: 14 0RF prednisone 20 mg tablet 40 mg PO DAILY 5 Days Qty: 10 0RF atomoxetine 40 mg capsule 40 mg PO DAILY topiramate 50 mg tablet 50 mg PO DAILY estradiol 1 mg tablet 1 mg PO DAILY levocetirizine [Xyzal] 5 mg tablet 5 mg PO DAILY bupropion HCl 300 mg tablet extended release 24 hr 300 mg PO QAM alprazolam 0.5 mg tablet 0.5 mg PO QHS PRN (Reason: Anxiety) zolpidem 10 mg tablet 10 mg PO DAILY Myrbetriq 50 mg tablet extended release 24 hr 50 mg PO DAILY Breztri Aerosphere 160-9-4.8 mcg/actuation HFA aerosol inhaler 2 inh inhalation BID mupirocin 2 % ointment 1 applic topical BID Qty: 22 0RF fluticasone propionate 50 mcg/actuation spray,suspension 1 spray intranasal BID Rx Instructions: administer into each nostril omeprazole 40 mg capsule,delayed release(DR/EC) 40 mg PO DAILY 90 Days Qty: 90 3RF ondansetron 4 mg tablet,disintegrating See Rx Instructions .ROUTE .COMPLEX Qty: 60 0RF Dose Instruction: DISSOLVE 1 TABLET ON THE TONGUE EVERY 6 HOURS NEEDED FOR NAUSEA OR VOMITING Rx Instructions: DISSOLVE 1 TABLET ON THE TONGUE EVERY 6 HOURS NEEDED FOR NAUSEA OR VOMITING Linzess 72 mcg capsule 72 mcg PO DAILY 30 Days Qty: 30 5RF Linzess 72 mcg capsule 0RF albuterol sulfate [ProAir HFA] 90 mcg/actuation HFA aerosol inhaler 1 inh INHALATION Q4H PRN (Reason: shortness of breath or wheezing) Qty: 6.7 3RF rosuvastatin 10 mg tablet 10 mg PO DAILY Qty: 90 3RF montelukast [Singulair] 10 mg tablet 10 mg PO QHS Qty: 90 1RF pregabalin 150 mg capsule 150 mg PO .hs 90 Days Qty: 90 1RF Rx Instructions: Take 2 hours before bedtime. ferrous sulfate [FeroSul] 325 mg (65 mg iron) tablet See Rx Instructions .ROUTE .COMPLEX Qty: 90 0RF Dose Instruction: TAKE 1 TABLET BY MOUTH DAILY 2 HOURS BEFORE A MEAL OR 4 HOURS AFTER; DO NOT TAKE WITH ANTACIDS Rx Instructions: TAKE 1 TABLET BY MOUTH DAILY 2 HOURS BEFORE A MEAL OR 4 HOURS AFTER; DO NOT TAKE WITH ANTACIDS Follow-up/Referrals: UNKNOWN,DOCTOR [Primary Care Provider] - 1 Week
[2024-08-29 19:35] VITALS: BP 109/61; PULSE 82; RESP 14; O2SAT 97
== END 2024-08-29 19:37 | disposition home or self-care (01) ==
PROVIDERS: Emergency Provider Emergency Medicine
DX: G43.909 Migraine, unspecified, not intractable, without status migrainosus (principal); J45.909 Unspecified asthma, uncomplicated; E78.00 Pure hypercholesterolemia, unspecified; K21.9 Gastro-esophageal reflux disease without esophagitis; K58.1 Irritable bowel syndrome with constipation; G47.33 Obstructive sleep apnea (adult) (pediatric); F41.8 Other specified anxiety disorders; Z90.710 Acquired absence of both cervix and uterus
CPT/HCPCS: 36415; 70450; 70496; 70498; 80053; 84484; 85025; 85610; 85730; 93005; 96374; 96375; 99284; J1200; J1885; J2765; Q9967

== ENCOUNTER 2025-04-04 08:58 | Outpatient (CLI) | payer BC, SELFPAY ==
--- NOTE | ~2025-04-04 | MR_ITS ---
MRI of the right shoulder Technique: Axial proton-density fat-sat images, coronal proton density fat-sat and T2 fat-sat images, and sagittal T1-weighted and T2 fat-sat images were acquired. Clinical History: Other specified joint disorder Findings: There is minimal AC joint degenerative change. Coracoclavicular, coracoacromial, coracohume ral ligaments are intact. There is 0.9 x 1.1 cm full-thickness tear at the anterior aspect of the infraspinatus tendon, and pro bably the posterior most aspect of the supraspinatus tendon. There is background moderate supraspinat us and infraspinatus tendinosis. Subscapularis tendon is intact. Tendon of the long head of the bicep s is intact. No labral tear evident. Inferior glenohumeral ligament is intact. No degenerative change or effusion of the glenohumeral join t. There is mild fluid distention of the subacromial/subdeltoid bursa. No muscle atrophy or edema. Impression: 0.9 x 1.1 cm full-thickness tear involving the posterior aspect of the supraspinatus tendon and anter ior aspect of the infraspinatus tendon. Moderate tendinosis of these tendons. Reviewed, dictated and finalized at location . Impression: 0.9 x 1.1 cm full-thickness tear involving the posterior aspect of the supraspi natus tendon and anterior aspect of the infraspinatus tendon. Moderate tendinosis of these tendons.
== END 2025-04-04 08:59 | disposition home or self-care (01) ==
PROVIDERS: PCP Family Medicine; Visit Provider Orthopaedic Surgery
DX: M25.811 Other specified joint disorders, right shoulder (principal)
CPT/HCPCS: 73221

== ENCOUNTER 2025-04-05 08:27 | Outpatient (CLI) | payer BC, SELFPAY ==
--- NOTE | ~2025-04-05 | MM_ITS ---
EXAMINATION: MM screening adi BI w loco HISTORY: Screening TECHNIQUE: Craniocaudal and mediolateral oblique 3-D tomosynthesis images were obtained and synthetic 2-D images were generated. CAD analysis was submitted and interpreted. COMPARISON: Comparison to multiple prior studies sequentially, with oldest reviewed study dated 01/14. BREAST PARENCHYMAL COMPOSITION: Not dense: There are scattered areas of fibroglandular density. FINDINGS: There is no evidence of suspicious mass, calcification, or architectural distortion to sugg est malignancy in either breast. There has been no suspicious interval change. IMPRESSION: 1. No mammographic evidence of malignancy. 2. Recommend routine screening mammography in one year. BI-RADS Category 1: Negative Reviewed, dictated and finalized at location A.
== END 2025-04-05 08:28 | disposition home or self-care (01) ==
LOC: MICIMG 08:28
PROVIDERS: PCP Family Medicine; Visit Provider Nurse Practitioner
DX: Z12.31 Encounter for screening mammogram for malignant neoplasm of breast (principal)
CPT/HCPCS: 77063; 77067

== ENCOUNTER 2025-05-12 09:28 | Outpatient (CLI) | payer BC, SELFPAY ==
--- NOTE | 2025-05-12 09:33 | EST_ITS ---
Patient Info Name: Barbara Kaur Age: 55 years : 1970 Gender: Female Ht: 68 in Wt: 161 lbs BSA: 1.88 m2 HR: 78 bpm BP: 116 / 82 mmHg Heart Rhythm: Sinus Rhythm Technical Quality: Good Exam Date: 05/12/2025 9:33 AM Patient Status: O Admit Date: 05/12/2025 Exam Type: CA stress sherri w NM A regadenoson stress test was performed. Staff Referring Physician: Tra Maurer DO Attending Provider: Tra Maurer DO Summary 1. 1. Negative lexiscan stress test for ischemic ST changes by ECG criteria. 2. 2. Stable hemodynamics throughout the test. 3. 3. Nuclear scan to follow and will be reported separately. Please correlate with it. History/Risk Factors Dyslipidemia: Yes Protocol: LEXISCAN Stress ECG Details Stage: REST Duration (min): 2 min : 35 sec HR (bpm): 79 SBP (mmHg): 116 DBP (mmHg): 82 Stage: REST Duration (min): 3 min : 30 sec HR (bpm): 85 SBP (mmHg): 126 DBP (mmHg): 78 Stage: STAGE 1 Duration (min): 0 min : 31 sec HR (bpm): 82 SBP (mmHg): 126 DBP (mmHg): 78 Stage: RECOVERY Duration (min): 0 min : 28 sec HR (bpm): 98 SBP (mmHg): 126 DBP (mmHg): 78 Stage: RECOVERY Duration (min): 1 min : 28 sec HR (bpm): 106 SBP (mmHg): 126 DBP (mmHg): 78 Stage: RECOVERY Duration (min): 2 min : 28 sec HR (bpm): 105 SBP (mmHg): 109 DBP (mmHg): 72 Stage: RECOVERY Duration (min): 3 min : 28 sec HR (bpm): 103 SBP (mmHg): 102 DBP (mmHg): 69 Stage: RECOVERY Duration (min): 4 min : 28 sec HR (bpm): 97 SBP (mmHg): 106 DBP (mmHg): 72 Stage: RECOVERY Duration (min): 5 min : 28 sec HR (bpm): 98 SBP (mmHg): 105 DBP (mmHg): 73 Stage: RECOVERY Duration (min): 6 min : 25 sec HR (bpm): 99 SBP (mmHg): 105 DBP (mmHg): 73 Rest HR: 85 bpm Peak HR: 110 bpm Rest Sys BP: 126 mmHg Peak Sys BP: 109 mmHg Max Pred HR: 163 bpm % Max Pred HR: 67 % Target HR: 139 bpm Max RPP: 11,990 bpm*mmHg BP Response: Normal blood pressure response Termination Reason: Completed Protocol Cardiac Symptoms: None Total Time: 0 min : 31 sec Rest Arellano BP: 78 mmHg Peak Arellano BP: 72 mmHg Total Dose: 0.4 mg Resting ECG Normal sinus rhythm - normal ECG. Stress ECG No abnormal ST/T wave changes. Arrhythmias None. Report Signatures
--- OUTSIDE RECORDS SUMMARY | 2025-05-12 09:34 | XMS_ITS | Clinical Summary ---
Author Organization [facility] [employer] Address [address] [place] [address] Care Team Providers Care Circuit Design Engineer Name Role Phone Kendall Wayne MD Primary Care Provider [phone] Source Comments [facility],non[facility] and Associated Physician Practices is amultiple site organization consisting of ambulatory clinics and hospital sitesin [place], [place] and [place]. This disclosure is being madepursuant to the Care Everywhere program and may not contain all information available regarding this patient. Last updated 18.[facility] [employer] Allergies Active Allergy Reactions Criticality Noted Date Comments Amoxicillin Nausea and/or Vomiting 07/15/2016 Penicillins GI Discomfort 04/24/2020 Medications * Be aware that medications may not be up to date on this document. Alwaysverify current medications with the patient. fluticasone propionate (FLONASE) 50 MCG/ACT nasal spray [place] 2 Sprays into each nostril once daily Reported on 12/03/2016 Active ALPRAZOLAM ER PO Active Zolpidem Tartrate (ZOLPIDEM PO) Active Fluticasone Furoate-Vilante rol (BREO ELLIPTA IN) Active Loratadine (CLARITIN PO) Active BUPROPION HCL PO Active escitalopram (LEXAPRO) 10 MG tablet Take 10 mg by mouth once daily Active BUPROPION HCL PO Active rosuvastatin (CRESTOR) 20 MG tablet Take 20 mg by mouth once daily Active montelukast (SINGULAIR) 10 MG tablet Take 10 mg by mouth Active omeprazole (PRILOSEC) 40 MG capsule Take 40 mg by mouth once daily Active azithromycin (ZITHROMAX) 250 MG tablet Take 2 tabs today, then 1 tab daily for next 4 days 6 tablet 04/27/2021 Active Active Problems Problem Noted Date Diagnosed Date Chronic midline low back pain without sciatica 0 04/20/2021 Chest pressure 05/22/2012 Obstructive sleep apnea of adult 05/22/2012 Rapid heart beat 05/22/2012 Allergic rhinitis 05/09/2012 Bipolar disorder 05/09/2012 Palpitations 05/09/2012 RLS (restless legs syndrome) 05/09/2012 Sleep disturbance 05/09/2012 Family History Medical History Relation Name Comments Hypertension Maternal Grandfather Hypertension Maternal Grandmother Diabetes Mother Relation Name Status Comments Maternal Grandfather Maternal Grandmother Mother Alive Social History Tobacco Use Types Packs/Day Years Used Date Smoking Tobacco: Never Smokeless Tobacco: Never Alcohol Use Standard Drinks/Week Comments No 0 (1 standard drink = 0.6 oz pur e alcohol) Comments No Sex and Gender Information Value Date Recorded Sex Assigned at Not on file Legal Sex Female 6:27 AM RN [facility] Gender Identity Not on file Sexual Orientation Not on file Last Filed Vital Signs Vital Sign Reading Time Taken Comments Blood Pressure 120/78 04/27/2021 9:07 AM CDT Pulse 94 04/27/2021 9:07 AM CDT Temperature 36.8 C (98.2 F) 04/27/2021 9:07 AM CDT Respiratory Rate 20 04/27/2021 9:07 AM CDT Oxygen Saturation 97% 04/27/2021 9:07 AM CDT Inhaled Oxygen Concentration - - Weight 70.3 kg (155 lb) 04/27/2021 9:07 AM CDT Height 172.7 cm (5' 8) 04/27/2021 9:07 AM CDT Body Mass Index 23.57 04/27/2021 9:07 AM CDT Plan of Treatment Health Maintenance Due Date Last Done Comments COLOGUARD (AGES 45-75) - COL ON CA SCREENING 1968 COLON MONITORING 1968 COLONOSCOPY - COLON CA SCREENING 1968 CT COLONOGRAPHY - COLON CA SCREENING 1968 Colorectal Cancer Screening 1968 FIT - COLON CA SCREENING 1968 FLEX SIG - COLON CA SCREENING 1968 MAMMOGRAM 1968 HIV SCREENING 1983 HEPATITIS C SCREENING 04/29/1986 DTAP/TDAP/TD VACCINES (1 - Tdap) 1987 HEPATITIS B VACCINE (1 of 3 - 19+ 3-dose series) 1987 PNEUMOCOCCAL VACCINE 50+ (1 of 1 - PCV) 2018 ZOSTER VACCINE (1 of 2) 2018 COVID-19 VACCINE (3 - 2023-2 5 season) 2024 01/11/2021, 12/02/2020 INFLUENZA VACCINE (#1) 2025 , 07/24/2015 HIB VACCINE Aged Out No longer eligi ble based on patient's age to complete this topic HPV VACCINE Aged Out No longer eligi ble based on patient's age to complete this topic MENINGOCOCCAL (Group B) VACCINE SHARED DECISION-MAKING Aged Out No longer eligible based on patient's age to complete this topic MENINGOCOCCAL GROUPS A/C/Y/W VACCINE Aged Out No longer eligible b ased on patient's age to complete this topic Insurance ANTHEM ANTHEM ANTHEM Care Teams Circuit Design Engineer Relationship Specialty Start Date End Date Kendall Wayne MD [address] [place] [address] PCP - General 09/21/21
--- OUTSIDE RECORDS SUMMARY | 2025-05-12 09:34 | XMS_ITS | Patient Health Record ---
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 Albina Lopez Unavailable Unavailable Bimal Gunderson Unavailable [phone] Allergies Allergen (clinical drug ingredient) Drug/Non Drug Allergy documented on EMR Reaction Allergy Type Onset Date Status Penicillin stomach upset Drug Allergy Ac tive Reason For Referral No Information Medications Medication SIG (Take, Route, Frequency, Duration) Notes Start Date End Date Status Flonase Allergy Relief 50 MCG/ACT 2 spray(s) intranasally (avoid nasal septum) once a day Active XYZAL 5 mg 1 tab(s) orally once a day (in the evening) Active Rosuvastatin Calcium 20 MG 1 tab(s) orally once a week Active BREZTRI AEROSPHERE 160 mcg-4.8 mcg-9 mcg/inh 2 puff(s) inhaled 2 times a day; Duration: 30 days Active Myrbetriq 50 MG 1 tab(s) orally once a day Active SINGULAIR 10 mg 1 tab(s) orally once a day; Duration: 90 days Active ALPRAZolam 0.5 MG 1 tab(s) orally Qday, PRN Active buPROPion HCl ER (XL) 300 MG 1 tab(s) orally 2 times a day Active MYRBETRIQ 50 mg 1 tab(s) orally once a day Active Albuterol Sulfate HFA 108 (90 Base) MCG/ACT 2 puffs Inhalation every 6 hrs; Duration: 30 days 05/27/2024 Active ALPRAZOLAM 0.5 mg 1 tab(s) orally Qday, PRN Active Trelegy Ellipta 200 MCG-62.5 MCG-25 MCG/INH 1 PUFF(S) INHALED ONCE A DAY; Duration: 30 DAYS *Please review and pick correct strength-formula tion from [employer] options. If intended option is not shown, discontinue and re-order from Quick Search* Not-Taking BUPROPION 300 mg/24 hours 1 tab(s) orally 2 times a day Active Omeprazole 40 MG 1 cap(s) orally once a day Active FLONASE 0.05 mg/inh 2 spray(s) intranasally (avoid nasal septum) once a day Active Vitamin D2 1.25 MG 1 CAP(S) ORALLY ONCE A WEEK *Please review and pick correct strength-formula tion from [employer] options. If intended option is not shown, discontinue and re-order from Quick Search* Active OMEPRAZOLE 40 mg 1 cap(s) orally once a day Active VITAMIN D2 1.25 mg 1 cap(s) orally once a week Active ROSUVASTATIN 20 mg 1 tab(s) orally once a week Active SIT (TRADITIONAL) variable per schedule SC per schedule; Duration: to be determined Active Fluticasone Propionate 50 MCG/ACT 2 spray(s) in each nostril BID; Duration: 30 day(s) Active NASAL WASHES N/A DIRECTED INTRANASALLY NEEDED; Duration: 30 *Please review for potential replacement for e-prescription and drug interaction check* Active Cetirizine HCl 10 MG 1 tab(s) orally once a day; Duration: 30 days Active TRELEGY ELLIPTA 200 mcg-62.5 mcg-25 mcg/inh 1 puff(s) inhaled once a day; Duration: 30 days Not-Taking PROAIR HFA 90 MCG/INH 2 PUFF(S) INHALED EVERY 6 HOURS; Duration: 30 DAYS *Please review for potential replacement for e-prescription and drug interaction check* Active Singulair 10 MG 1 tab(s) orally once a day; Duration: 90 days Active Azelastine HCl 137 MCG/SPRAY 2 spray(s) intranasally 2 times a day; Duration: 30 days Active Auvi-Q 0.3 MG/0.3ML as directed intramuscularly once; Duration: 1 day Active AZELASTINE HYDROCHLORIDE NASAL 137 mcg/inh 2 spray(s) intranasally 2 times a day; Duration: 30 days Active AUVI -Q 0.3 mg as directed intramuscularly once; Duration: 1 day Active FLUTICASONE NASAL 50 mcg/inh 2 spray(s) in each nostril BID; Duration: 30 day(s) Active Xyzal Allergy 24HR 5 MG 1 tab(s) orally once a day (in the evening) Active CETIRIZINE 10 mg 1 tab(s) orally once a day; Duration: 30 days Active Breztri Aerosphere 160 MCG-4.8 MCG-9 MCG/INH 2 PUFF(S) INHALED 2 TIMES A DAY; Duration: 30 DAYS *Please review and pick correct strength-formula tion from [employer] options. If intended option is not shown, discontinue and re-order from Quick Search* Active Immunizations Vaccine Route Administration Date Status Comme nts COVID-19 (Moderna) Unknown 12/02/2020 Administered COVID-19 (Moderna) Unknown 01/11/2021 Administered [facility] Quadrivalent Unknown 07/07/2020 Administered Portal Information NOC Pneumovax 23 IM Intramuscular 06/15/2021 Administered NOC Pneumovax 23 IM Intramuscular 08/15/2024 Administered NOC Tdap Unknown 09/24/2018 Administered Portal Information Social History Tobacco Use: Social History Observation Description Date Details (start date - stop date) Never Smoker NA - NA Smoking Smart Form: Question Answer Notes Are you a: never smoker Tobacco Control (Standard) Question Answer Notes Tobacco use: Nonsmoker Problems Problem Type SNOMED Code ICD Code Onset Dates Problem Status W/U Status Risk Notes Problem Vitamin D deficiency (28747268) Vitamin D deficiency, unspecified (E55.9) Active confirmed Problem Manic disorder, sing le episode (313419417) Manic episode, unspecified (F30.9) Active confirmed Problem Anxiety disorder (759674351) Anxiety disorder, unspecified (F41.9) Active confirmed Problem Chronic allergic conjunctivitis (97266309) Other chronic allergic conjunctivitis (H10.45) Active confirmed Problem Allergic rhinitis caused by pollen (disorder) (58610115) Allergic rhinitis due to pollen (J30.1) Active confirmed Problem Allergic rhinitis caused by animal hair and dander (585314719952306) Allergic rhinitis due to animal (cat) (dog) hair and dander (J30.81) Active confirmed Problem Allergic rhinitis (30907493) Other allergic rhinitis (J30.89) Active confirmed Problem Uncomplicated modera te persistent asthma (329172573) Moderate persistent asthma, uncomplicated (J45.40) Active confirmed Problem Gastro-esophageal reflux disease without esophagitis (561942826) Gastro-esophagea l reflux disease without esophagitis (K21.9) Active confirmed Problem Gastric ulcer (534988894) Gastric ulcer, unspecified as acute or chronic, without hemorrhage or perforation (K25.9) Active confirmed Problem Allergic rhinitis caused by pollen (disorder) (49155951) Allergic rhinitis due to pollen (J30.1) Active confirmed Problem Allergic rhinitis caused by animal hair and dander (192508494396730) Allergic rhinitis due to animal (cat) (dog) hair and dander (J30.81) Active confirmed Problem Allergic rhinitis (14600527) Other allergic rhinitis (J30.89) Active confirmed Problem Chronic allergic conjunctivitis (73141506) Other chronic allergic conjunctivitis (H10.45) Active confirmed Problem Chronic sinusitis (38026585) Other chronic sinusitis (J32.8) Active confirmed Problem Pure hypercholesterolemia (643264239) Pure hypercholesterol emia, unspecified (E78.00) Active confirmed Problem Irritable bowel syndrome characterized by constipation (922516933) Irritable bowel syndrome with constipation (K58.1) Active confirmed Encounters Encounter Location Date Provider Diagnosis [facility] [address] [place], [place] [address] [address] [address] 08/15/2024 Caty Hanna Encounter for immunization Z23 ; Encounter for antibody response examination Z01.84 and Other chronic sinusitis J32.[address] [facility] [address] [address] 05/16/2024 Caty Hanna Allergic rhinitis du e to pollen J30.1 ; Allergic rhinitis due to animal (cat) (dog) hair and dander J30.81 ; Other allergic rhinitis J30.89 and Other chronic allergic conjunctivitis H10.45 [facility] [address] [address] 05/21/2024 Caty Hanna Allergic rhinitis du e to pollen J30.1 ; Allergic rhinitis due to animal (cat) (dog) hair and dander J30.81 ; Other allergic rhinitis J30.89 and Other chronic allergic conjunctivitis H10.45 [facility] [address] [place], [place] [address] [address] [facility] [address] [address] 06/04/2024 Caty Hanna Allergic rhinitis du e to pollen J30.1 ; Allergic rhinitis due to animal (cat) (dog) hair and dander J30.81 ; Other allergic rhinitis J30.89 and Other chronic allergic conjunctivitis H10.45 [facility] [address] [place], [place] [address] [address] [place] [phone] 06/12/2024 Catyjohnson Chrism Allergic rhinitis du e to pollen J30.1 ; Allergic rhinitis due to animal (cat) (dog) hair and dander J30.81 ; Other allergic rhinitis J30.89 and Other chronic allergic conjunctivitis H10.45 [facility] [address] [place], [place] [address] [facility] [address] 06/18/2024 Catyjohnson Chrism Allergic rhinitis du e to pollen J30.1 ; Allergic rhinitis due to animal (cat) (dog) hair and dander J30.81 ; Other allergic rhinitis J30.89 and Other chronic allergic conjunctivitis H10.45 [facility] [address] [place], [place] [address] [address] [address] 07/02/2024 Catyjohnson Hanna Allergic rhinitis du e to pollen J30.1 ; Allergic rhinitis due to animal (cat) (dog) hair and dander J30.81 ; Other allergic rhinitis J30.89 and Other chronic allergic conjunctivitis H10.45 [facility] [address] [place], [place] [address] [place] [address] [place] [phone] 07/17/2024 Caty Jacques Allergic rhinitis du e to pollen J30.1 ; Allergic rhinitis due to animal (cat) (dog) hair and dander J30.81 ; Other allergic rhinitis J30.89 and Other chronic allergic conjunctivitis H10.45 [facility] [address] [place], [place] [address] [address] [place] [phone] 07/24/2024 Catyjohnson Chrism Allergic rhinitis du e to pollen J30.1 ; Allergic rhinitis due to animal (cat) (dog) hair and dander J30.81 ; Other allergic rhinitis J30.89 and Other chronic allergic conjunctivitis H10.45 [facility] [address] [place] [address] [employer] [address] [address] 08/08/2024 Caty Hanna Allergic rhinitis du e to pollen J30.1 ; Allergic rhinitis due to animal (cat) (dog) hair and dander J30.81 ; Other allergic rhinitis J30.89 and Other chronic allergic conjunctivitis H10.45 [facility] [address] [place], [place] [address] [address] [address] 09/12/2024 Catyjohnson Hanna Allergic rhinitis du e to pollen J30.1 ; Allergic rhinitis due to animal (cat) (dog) hair and dander J30.81 ; Other allergic rhinitis J30.89 and Other chronic allergic conjunctivitis H10.45 [facility] [address] [place] [address] [employer] [address] [address] 09/18/2024 Caty Hanna Allergic rhinitis du e to pollen J30.1 ; Allergic rhinitis due to animal (cat) (dog) hair and dander J30.81 ; Other allergic rhinitis J30.89 and Other chronic allergic conjunctivitis H10.45 [facility] [address] [place] [address] [employer] [address] [address] 10/09/2024 Caty Hanna Allergic rhinitis du e to pollen J30.1 ; Allergic rhinitis due to animal (cat) (dog) hair and dander J30.81 ; Other allergic rhinitis J30.89 and Other chronic allergic conjunctivitis H10.45 [facility] [address] [place], [place] [address] [address] [address] 10/21/2024 Catyjohnson Chrism Allergic rhinitis du e to pollen J30.1 ; Allergic rhinitis due to animal (cat) (dog) hair and dander J30.81 ; Other allergic rhinitis J30.89 and Other chronic allergic conjunctivitis H10.45 [facility] [address] [place], [place] [address] [facility] [address] [address] 11/05/2024 Caty Chrism Allergic rhinitis du e to pollen J30.1 ; Allergic rhinitis due to animal (cat) (dog) hair and dander J30.81 ; Other allergic rhinitis J30.89 and Other chronic allergic conjunctivitis H10.45 [facility] [address] [place] [address] [employer] [address] [address] 11/20/2024 Caty Hanna Allergic rhinitis du e to pollen J30.1 ; Allergic rhinitis due to animal (cat) (dog) hair and dander J30.81 ; Other allergic rhinitis J30.89 and Other chronic allergic conjunctivitis H10.45 [facility] [address] [place], [place] [address] [facility] [address] [place] [phone] 12/03/2024 Catyjohnson Hanna Allergic rhinitis du e to pollen J30.1 ; Allergic rhinitis due to animal (cat) (dog) hair and dander J30.81 ; Other allergic rhinitis J30.89 and Other chronic allergic conjunctivitis H10.45 [facility] [address] [place] [address] [employer] [address] [address] 12/30/2024 Caty Hanna Allergic rhinitis du e to pollen J30.1 ; Allergic rhinitis due to animal (cat) (dog) hair and dander J30.81 ; Other allergic rhinitis J30.89 and Other chronic allergic conjunctivitis H10.45 [facility] [address] [place] [address] [employer] [address] [address] 01/28/2025 Caty Hanna Allergic rhinitis du e to pollen J30.1 ; Allergic rhinitis due to animal (cat) (dog) hair and dander J30.81 ; Other allergic rhinitis J30.89 and Other chronic allergic conjunctivitis H10.45 [facility] [address] [place], [place] [address] [facility] [facility] [address] [place] [phone] 03/04/2025 Catyjohnson Hanna Allergic rhinitis du e to pollen J30.1 ; Allergic rhinitis due to animal (cat) (dog) hair and dander J30.81 ; Other allergic rhinitis J30.89 and Other chronic allergic conjunctivitis H10.45 [facility] [address] [place], [place] [address] [address] [place] [phone] 04/08/2025 Caty Hanna Allergic rhinitis du e to pollen J30.1 ; Allergic rhinitis due to animal (cat) (dog) hair and dander J30.81 ; Other allergic rhinitis J30.89 and Other chronic allergic conjunctivitis H10.45 [facility] [address] [place] [phone] 05/06/2025 Caty Hanna Allergic rhinitis du e to pollen J30.1 ; Allergic rhinitis due to animal (cat) (dog) hair and dander J30.81 ; Other allergic rhinitis J30.89 and Other chronic allergic conjunctivitis H10.[address] [address] 05/27/2024 Caty Hanna Moderate persistent asthma, uncomplicated J45.[address] [address] 07/25/2024 Caty Hanna [address] [address] 12/05/2024 Caty Hanna Assessments Encounter Date Diagnosis (ICD Code) Assessment Notes Treatment Notes Treatment Clinical Notes Section Notes 05/16/2024 Allergic rhinitis due to pollen (ICD-10 - J30.1) 05/21/2024 Allergic rhinitis due to pollen (ICD-10 - J30.1) 05/27/2024 Moderate persistent asthma, uncomplicated (ICD-10 - J45.40) 06/04/2024 Allergic rhinitis due to pollen (ICD-10 - J30.1) 06/12/2024 Allergic rhinitis due to pollen (ICD-10 - J30.1) 06/18/2024 Allergic rhinitis due to pollen (ICD-10 - J30.1) 07/02/2024 Allergic rhinitis due to pollen (ICD-10 - J30.1) 07/17/2024 Allergic rhinitis due to pollen (ICD-10 - J30.1) 07/24/2024 Allergic rhinitis due to pollen (ICD-10 - J30.1) 08/08/2024 Allergic rhinitis due to pollen (ICD-10 - J30.1) 08/15/2024 Encounter for immunization (ICD-10 - Z23) 09/12/2024 Allergic rhinitis due to pollen (ICD-10 - J30.1) 09/18/2024 Allergic rhinitis due to pollen (ICD-10 - J30.1) 10/09/2024 Allergic rhinitis due to pollen (ICD-10 - J30.1) 10/21/2024 Allergic rhinitis due to pollen (ICD-10 - J30.1) 11/05/2024 Allergic rhinitis due to pollen (ICD-10 - J30.1) 11/20/2024 Allergic rhinitis due to pollen (ICD-10 - J30.1) 12/03/2024 Allergic rhinitis due to pollen (ICD-10 - J30.1) 12/30/2024 Allergic rhinitis due to pollen (ICD-10 - J30.1) 01/28/2025 Allergic rhinitis due to pollen (ICD-10 - J30.1) 03/04/2025 Allergic rhinitis due to pollen (ICD-10 - J30.1) 04/08/2025 Allergic rhinitis due to pollen (ICD-10 - J30.1) 08/15/2024 Encounter for antibody response examination (ICD-10 - Z01.84) 05/06/2025 Allergic rhinitis due to pollen (ICD-10 - J30.1) 05/06/2025 Allergic rhinitis due to animal (cat) (dog) hair and dander (ICD-10 - J30.81) 04/08/2025 Allergic rhinitis due to animal (cat) (dog) hair and dander (ICD-10 - J30.81) 03/04/2025 Allergic rhinitis due to animal (cat) (dog) hair and dander (ICD-10 - J30.81) 01/28/2025 Allergic rhinitis due to animal (cat) (dog) hair and dander (ICD-10 - J30.81) 12/30/2024 Allergic rhinitis due to animal (cat) (dog) hair and dander (ICD-10 - J30.81) 12/03/2024 Allergic rhinitis due to animal (cat) (dog) hair and dander (ICD-10 - J30.81) 11/20/2024 Allergic rhinitis due to animal (cat) (dog) hair and dander (ICD-10 - J30.81) 11/05/2024 Allergic rhinitis due to animal (cat) (dog) hair and dander (ICD-10 - J30.81) 10/21/2024 Allergic rhinitis due to animal (cat) (dog) hair and dander (ICD-10 - J30.81) 10/09/2024 Allergic rhinitis due to animal (cat) (dog) hair and dander (ICD-10 - J30.81) 09/18/2024 Allergic rhinitis due to animal (cat) (dog) hair and dander (ICD-10 - J30.81) 09/12/2024 Allergic rhinitis due to animal (cat) (dog) hair and dander (ICD-10 - J30.81) 08/15/2024 Other chronic sinusitis (ICD-10 - J32.8) 08/08/2024 Allergic rhinitis due to animal (cat) (dog) hair and dander (ICD-10 - J30.81) 07/24/2024 Allergic rhinitis due to animal (cat) (dog) hair and dander (ICD-10 - J30.81) 07/17/2024 Allergic rhinitis due to animal (cat) (dog) hair and dander (ICD-10 - J30.81) 07/02/2024 Allergic rhinitis due to animal (cat) (dog) hair and dander (ICD-10 - J30.81) 06/18/2024 Allergic rhinitis due to animal (cat) (dog) hair and dander (ICD-10 - J30.81) 06/12/2024 Allergic rhinitis due to animal (cat) (dog) hair and dander (ICD-10 - J30.81) 06/04/2024 Allergic rhinitis due to animal (cat) (dog) hair and dander (ICD-10 - J30.81) 05/21/2024 Allergic rhinitis due to animal (cat) (dog) hair and dander (ICD-10 - J30.81) 05/16/2024 Allergic rhinitis due to animal (cat) (dog) hair and dander (ICD-10 - J30.81) 05/16/2024 Other allergic rhinitis (ICD-10 - J30.89) 05/21/2024 Other allergic rhinitis (ICD-10 - J30.89) 06/04/2024 Other allergic rhinitis (ICD-10 - J30.89) 06/12/2024 Other allergic rhinitis (ICD-10 - J30.89) 06/18/2024 Other allergic rhinitis (ICD-10 - J30.89) 07/02/2024 Other allergic rhinitis (ICD-10 - J30.89) 07/17/2024 Other allergic rhinitis (ICD-10 - J30.89) 07/24/2024 Other allergic rhinitis (ICD-10 - J30.89) 08/08/2024 Other allergic rhinitis (ICD-10 - J30.89) 09/12/2024 Other allergic rhinitis (ICD-10 - J30.89) 09/18/2024 Other allergic rhinitis (ICD-10 - J30.89) 10/09/2024 Other allergic rhinitis (ICD-10 - J30.89) 10/21/2024 Other allergic rhinitis (ICD-10 - J30.89) 11/05/2024 Other allergic rhinitis (ICD-10 - J30.89) 11/20/2024 Other allergic rhinitis (ICD-10 - J30.89) 12/03/2024 Other allergic rhinitis (ICD-10 - J30.89) 12/30/2024 Other allergic rhinitis (ICD-10 - J30.89) 01/28/2025 Other allergic rhinitis (ICD-10 - J30.89) 03/04/2025 Other allergic rhinitis (ICD-10 - J30.89) 04/08/2025 Other allergic rhinitis (ICD-10 - J30.89) 05/06/2025 Other allergic rhinitis (ICD-10 - J30.89) 05/06/2025 Other chronic allergic conjunctivitis (ICD-10 - H10.45) 04/08/2025 Other chronic allergic conjunctivitis (ICD-10 - H10.45) 03/04/2025 Other chronic allergic conjunctivitis (ICD-10 - H10.45) 01/28/2025 Other chronic allergic conjunctivitis (ICD-10 - H10.45) 12/30/2024 Other chronic allergic conjunctivitis (ICD-10 - H10.45) 12/03/2024 Other chronic allergic conjunctivitis (ICD-10 - H10.45) 11/20/2024 Other chronic allergic conjunctivitis (ICD-10 - H10.45) 11/05/2024 Other chronic allergic conjunctivitis (ICD-10 - H10.45) 10/21/2024 Other chronic allergic conjunctivitis (ICD-10 - H10.45) 10/09/2024 Other chronic allergic conjunctivitis (ICD-10 - H10.45) 09/18/2024 Other chronic allergic conjunctivitis (ICD-10 - H10.45) 09/12/2024 Other chronic allergic conjunctivitis (ICD-10 - H10.45) 08/08/2024 Other chronic allergic conjunctivitis (ICD-10 - H10.45) 07/24/2024 Other chronic allergic conjunctivitis (ICD-10 - H10.45) 07/17/2024 Other chronic allergic conjunctivitis (ICD-10 - H10.45) 07/02/2024 Other chronic allergic conjunctivitis (ICD-10 - H10.45) 06/18/2024 Other chronic allergic conjunctivitis (ICD-10 - H10.45) 06/12/2024 Other chronic allergic conjunctivitis (ICD-10 - H10.45) 06/04/2024 Other chronic allergic conjunctivitis (ICD-10 - H10.45) 05/21/2024 Other chronic allergic conjunctivitis (ICD-10 - H10.45) 05/16/2024 Other chronic allergic conjunctivitis (ICD-10 - H10.45) Plan Of Treatment Pending Test Test Name Order Date -Immunoglobulins A/G/M, Qn, Ser 08/21/20 23 -Haemophilus influenzae B IgG 08/21/2023 -Tetanus/Diphtheria Ab 08/21/2023 STREPTOCOCCUS PNEUMONIAE IGG AB (23 SERO TYPES) 08/23/2023 STREPTOCOCCUS PNEUMONIAE IGG AB (23 SERO TYPES) 08/21/2023 TETANUS ANTITOXOID ANTIBODY (EIA) 2022 TETANUS ANTITOXOID ANTIBODY (EIA) 2022 TETANUS ANTITOXOID ANTIBODY (EIA) 2023 DIPHTHERIA ANTITOXOID ANTIBODY DIPHTHERIA ANTITOXOID ANTIBODY IMMUNOGLOBULINS G/A/M 08/21/2023 IMMUNOGLOBULINS G/A/M 08/23/2023 VITAMIN D, 25-OH, TOTAL, [place] 08/21/2023 VITAMIN D, 25-OH, TOTAL, [place] 08/23/2023 HAEMOPHILUS INFLUENZAE B ANTIBODY, IGG 0 12/25/2023 HAEMOPHILUS INFLUENZAE B ANTIBODY, IGG 1 10/23/2022 HAEMOPHILUS INFLUENZAE B ANTIBODY, IGG 1 -Pneumococcal Ab (23 Serotype) 3 Next Appt Details Provider Name:Caty OrtegaMoreno Bianca palakscottie, 05/28/2025 07:30:00 AM, [address] [facility], [address], [place], [address], Insurance Providers Payer Name Payer Address Payer Phone Subscriber Number Group Number Insured Name Patient Relationship to Insured Coverage Start Date Coverage End Date [place] [address] [place] [address] [id number] Barbara Kaur Self - patient is the insured 1 Medical (General) History Medical History History ICD Code Anxiety disorder, unspecified F41.9 Manic episode, unspecified F30.9 Pure hypercholesterolemia, unspecified E 78.00 Vitamin D deficiency, unspecified E55.9 Gastro-esophageal reflux disease without esophagitis K21.9 Irritable bowel syndrome with constipati on K58.1 Gastric ulcer, unspecified a s acute or chronic, without hemorrhage or perforation K25.9 Surgical History Surgery Date(Month/Year) Hysterectomy 03/23/2010 Lumpectomy 03/23/2007 Wrist Surgery 03/23/2023
--- OUTSIDE RECORDS SUMMARY | 2025-05-12 09:34 | XMS_ITS | Clinical Summary ---
Author Organization [facility] [facility] [place] Address [address] [place] [address] Care Team Providers Care Ict Support Technicians Name Role Phone Kendall Wayne MD Primary Care Provider [phone] Allergies Active Allergy Reactions Criticality Noted Date Comments Mold Extracts Unknown 05/09/2012 Penicillins Diarrhea,Nausea and Vomiting Low 2015 Unclassified Drug Unknown 05/09/2012 dust Medications loratadine (CLARITIN) 10 mg tablet Take 10 mg by mouth daily. Active buPROPion HCl (WELLBUTRIN XL) 150 mg Extended Release 24 hour tablet Take 150 mg by mouth daily manager deli. Active fluticasone (FLONASE) 50 mcg/spray [place], SuspensionIndic ations:Nasal congestion Administer 2 Sprays in each nostril daily. 16 Gram 0 5 Active montelukast (SINGULAIR) 10 mg tablet Take 10 mg by mouth daily at bedtime. Active omeprazole (PriLOSEC) 40 mg Capsule, Delayed Release(E.C.) Take 40 mg by mouth daily. Active rosuvastatin (CRESTOR) 20 mg tablet Take 20 mg by mouth daily. Active Hospital, Clinic, or Other Facility Administered Medication Ordered Dose Route Frequency Start Date End Date Status lidocaine (XYLOCAINE MPF) 20 mg/mL (2%) cardiac injection 10 mgIndications:Thor acic back pain, unspecified back pain laterality, unspecified chronicity 10 mg See Instruct INTRA-PROCEDURE ONCE 10/19/2022 Active lidocaine (XYLOCAINE MPF) 20 mg/mL (2%) cardiac injection 10 mgIndications:Thor acic back pain, unspecified back pain laterality, unspecified chronicity 10 mg See Instruct INTRA-PROCEDURE ONCE 10/19/2022 Active Active Problems Problem Noted Date Diagnosed Date Thoracic disc herniation 10/19/2022 Lumbar spondylosis 10/19/2022 Spondylolisthesis at L4-L5 level 2021 Chronic midline low back pain without sciatica 0 04/20/2021 Obstructive sleep apnea of adult 05/22/2012 Rapid heart beat 05/22/2012 Chest pressure 05/22/2012 Bipolar disorder 05/09/2012 Allergic rhinitis 05/09/2012 Palpitations 05/09/2012 Sleep disturbance 05/09/2012 RLS (restless legs syndrome) 05/09/2012 Immunizations Immunization Administration Dates Next Due Influenza Seasonal Unspecified Formulation IM Family History Medical History Relation Name Comments Diabetes Mother Hypertension Mother Thyroid Disease Mother Thyroid Disease Sister 2 Relation Name Status Comments Mother Alive Sister 1 Alive Sister 2 Alive Social History Tobacco Use Types Packs/Day Years Used Date Smoking Tobacco: Never Smokeless Tobacco: Never Alcohol Use Standard Drinks/Week Comments Yes 0 (1 standard drink = 0.6 oz pur e alcohol) rare Comments No Sex and Gender Information Value Date Recorded Sex Assigned at Not on file Legal Sex Female 4:35 AM SAND CUTTING MACHINE OPERATOR Gender Identity Not on file Sexual Orientation Not on file Last Filed Vital Signs Vital Sign Reading Time Taken Comments Blood Pressure 124/84 11/28/2022 8:06 AM SAND CUTTING MACHINE OPERATOR Pulse 87 11/28/2022 8:06 AM SAND CUTTING MACHINE OPERATOR Temperature 36.9 C (98.5 F) 04/20/2015 9:04 AM CDT Respiratory Rate 18 11/28/2022 8:06 AM SAND CUTTING MACHINE OPERATOR Oxygen Saturation 100% 11/28/2022 8:06 AM SAND CUTTING MACHINE OPERATOR Inhaled Oxygen Concentration - - Weight 75.2 kg (165 lb 12.8 oz) 10/19/2022 7:00 AM SAND CUTTING MACHINE OPERATOR Height 172.7 cm (5' 8) 09/15/2021 2:00 PM SAND CUTTING MACHINE OPERATOR Body Mass Index 25.21 09/15/2021 2:00 PM SAND CUTTING MACHINE OPERATOR Plan of Treatment Health Maintenance Due Date Last Done Comments DTAP/TDAP/TD VACCINES (1 - Tdap) 1987 HEPATITIS B VACCINES (1 of 3 - 19+ 3-dose series) 04/22 COLORECTAL SCREENING 2013 Colorectal Cancer Screening 2013 FIT-DNA Q 3 years 2013 FIT/FOBT Q 1 year 2013 Flex Sig/CT Colonography Q 5 years 2013 BREAST CANCER SCREENING 09/22/2015 09/22/2014 ZOSTER VACCINE (1 of 2) 2018 INFLUENZA VACCINE (#1) 2025 07/24/2015 Insurance [facility] BLUE ACCESS CHOICE Care Teams Ict Support Technicians Relationship Specialty Start Date End Date Kendall Wayne MD [address] [place] [address] PCP - General Family Practice 06/08/21
--- OUTSIDE RECORDS SUMMARY | 2025-05-12 09:34 | XMS_ITS | Encounter Summary ---
Author Organization [employer] Address [address] [place] [address] Care Team Providers Care Board Machine Set Up Operator Name Role Phone Kendall Wayne MD Primary Care Provider Encounter Details Date Type Department Care Team (Late st Contact Info) Description 11/24/2022 Telephone [facility] [address] [place] [address] Sosa Keita, RN Social History Tobacco Use Types Packs/Day Years Used Date Smoking Tobacco: Never Smokeless Tobacco: Never Alcohol Use Standard Drinks/Week Comments Yes 0 (1 standard drink = 0.6 oz pur e alcohol) rare Comments No Sex and Gender Information Value Date Recorded Sex Assigned at Not on file Legal Sex Female 4:35 AM PROCESS EQUIPMENT OPERATOR Gender Identity Not on file Sexual Orientation Not on file COVID-19 Exposure Response Date Recorded In the last 10 days, have yo u been in contact with someone who was confirmed or suspected to have Coronavirus/COVID-19? No / Unsure 11/17/2022 6:33 AM PROCESS EQUIPMENT OPERATOR documented as of this encounter Miscellaneous Notes * Telephone Encounter - Sosa Keita RN - 11/24/2022 2:53 PM CST Call placed to Barbara Kaur. Pt answered the phone. Informed this call is to confirm procedure appointment on 11/28 with an arrival time of 0630. She is not currently on antibiotics for any reason and is aware that if they were to be placed on antibiotics, the procedure would need to be postponed. Barbara Kaur voiced understanding of the above and confirmed her appointment with an arrival time of 0630. ESS EQUIPMENT OPERATOR documented in this encounter Plan of Treatment Not on file documented as of this encounter Visit Diagnoses Not on filedocumented in this encounter Care Teams Board Machine Set Up Operator Relationship Specialty Start Date End Date Kendall Wayne MD [address] [place] [address] PCP - General Family Practice 06/08/21 documented as of this encounter
--- NOTE | 2025-05-12 23:39 | WPDCARIOSTRE ---
Nuclear Stress Test INDICATIONS Indications: TALAMANTES, preop PROCEDURE Procedure Performed: Myocardial Perf Spect-Multi Procedure: Patient underwent a lexiscan stress test and was injected with 33.4 mCi of cardiolyte. Multiple tomographic images were obtained. These are of good quality. There is no evidence of any perfusion defects with stress imaging. A separate resting images were obtained after patient was injected with 10.7 mCi of cardiolyte. Multiple tomographic images were obtained. These are of good quality. There is no evidence of any perfusion defects with rest imaging. CONCLUSION Conclusion: 1. Normal myocardial perfusion imaging demonstrating no perfusion defects with stress or rest imaging. 2. No evidence of reversible ischemia. 3. Left ventriculogram demonstrates normal measured ejection fraction of 71% with no wall motion abnormalities. 4. TID score 1.03 is not elevated.
== END 2025-05-12 09:29 | disposition home or self-care (01) ==
LOC: CHSIMG 09:30
PROVIDERS: PCP Family Medicine; Visit Provider Internal Medicine Cardiovascular Disease
DX: Z01.810 Encounter for preprocedural cardiovascular examination (principal)
CPT/HCPCS: 78452; 93017; A9502; J2785

== ENCOUNTER 2025-05-14 00:51 | Day surgery (SDC) | payer BC, SELFPAY ==
[2025-05-07 16:40] VITALS: BMI 24.3
--- NOTE | 2025-05-07 16:44 | PC.NURSE ---
Report to the Outpatient Waiting Room, entrance under the green pavilion located off [facility], at time 0830 on date 05/14/25. Planned Procedure Time: 1030.? Time changes happen often and if your time is changed the preop area will call you the afternoon before. - You and your visitor will be asked to self-screen and do not enter if you have any COVID symptoms. Please call surgeon if you need to reschedule. - A mask is optional within the hospital at this time. Patients may have clear liquids (water, carbonated beverages, clear teas, apple juice) until 3 hours prior to surgery with a maximum of 20 ounces. - No food from midnight until time of surgery and no smoking, or chewing tobacco (or any form of nicotine). No chewing gum, candy or mints. - Infants may have breast milk until 4 hours before surgery, formula 6 hours prior to surgery. - Children will be allowed to drink immediately following surgery.? If applicable, please bring a bottle or sippy cup to assist with drinking. Juice, water, soda, and popsicles are readily available.? For infants on formula, please bring formula the day of surgery.? Pacifiers are allowed. Take only the following medications with a SIP of water on the morning of surgery: _bupropion_ DO NOT STOP ANY OF YOUR OTHER PRESCRIPTION MEDICATIONS PRIOR TO SURGERY EXCEPT THE FOLLOWING Hold all vitamins and supplements for 3 days per anesthesiologist. Medications to discontinue per physician n/a Date to take last dose Please no make-up, nail jordanian, hairspray, perfume, deodorant, or body powder the day of surgery.? No jewelry (including any body piercings) or valuables the day of surgery, leave them at home.? Please take a shower or bath the night before, or the morning of, surgery with an antibacterial soap.? Wear comfortable, loose fitting clothing.? Children are encouraged to wear pajamas. - Jewelry must be removed prior to entering the operating room.? Rings and piercings that are not removed may be cut off. - The hospital will not accept responsibility for valuables.? - Please leave all valuables, including medications, at home the day of surgery. If you are going home after surgery, a licensed national van truck driver must drive you home.? - NO public transportation without another adult if you receive anesthesia. - We recommend that an adult stay with you for 24 hours following discharge. - We also recommend that you do not drive, make important decision, drink alcoholic beverages, or take any drugs that were not prescribed by your health care provider for at least 24 hours after your discharge time. For Pediatric surgeries, we recommend two adults accompany the child home. Follow any additional instructions given to you from your surgeon. Telephone instructions given to _patient _and asked if any additional questions and then verbalized understanding. Patient advised to call surgeon office or pre surgery nurse liaison [phone] if any additional questions.
[2025-05-14] VITALS (7 sets, daily range): BP systolic 111–119; BP diastolic 55–80; PULSE 78–99; RESP 12–20; TEMP 36.2–37.1; O2SAT 96–98
--- OUTSIDE RECORDS SUMMARY | 2025-05-14 00:53 | XMS_ITS | Encounter Summary ---
Author Organization [employer] Address [address] [place] [address] Care Team Providers Care Heel Compressor Name Role Phone Kendall Wayne MD Primary Care Provider [phone] Encounter Details Date Type Department Care Team (Late st Contact Info) Description 11/24/2022 Telephone [facility] [address] [place] [address] Sosa Keita, RN Social History Tobacco Use Types Packs/Day Years Used Date Smoking Tobacco: Never Smokeless Tobacco: Never Alcohol Use Standard Drinks/Week Comments Yes 0 (1 standard drink = 0.6 oz pur e alcohol) rare Comments No Sex and Gender Information Value Date Recorded Sex Assigned at Not on file Legal Sex Female 4:35 AM CHEMICAL PROCESS EQUIPMENT OPERATOR Gender Identity Not on file Sexual Orientation Not on file COVID-19 Exposure Response Date Recorded In the last 10 days, have yo u been in contact with someone who was confirmed or suspected to have Coronavirus/COVID-19? No / Unsure 11/17/2022 6:33 AM CHEMICAL PROCESS EQUIPMENT OPERATOR documented as of this [...] appointment with an arrival time of 0630. ICAL PROCESS EQUIPMENT OPERATOR documented in this encounter Plan of Treatment Not on file documented as of this encounter Visit Diagnoses Not on filedocumented in this encounter Care Teams Heel Compressor Relationship Specialty Start Date End Date Kendall Wayne MD [address] [place] [address] PCP - General Family Practice 06/08/21 documented as of this encounter
--- OUTSIDE RECORDS SUMMARY | 2025-05-14 00:53 | XMS_ITS | Clinical Summary ---
Author Organization [facility] Address [address] [place] [id number] Care Team Providers Care Medicare Specialist Name Role Phone Unavailable Primary Care Provider Unavailabl e Social History Tobacco Use Types Packs/Day Years Used Date Smoking Tobacco: Never Assessed Comments Unknown Sex and Gender Information Value Date Recorded Sex Assigned at Not on file Legal Sex Female 8:09 PM CDT Gender Identity Not on file Sexual Orientation Not on file Plan of Treatment Health Maintenance Due Date Last Done Comments Cervical Cancer Screening Pa p Smear (Age 30 to 64) Every 3 Years 1968 Colorectal Cancer Screening Colonoscopy (10 Years) 1968 Annual Physical 1971 Hepatitis C 1986 DTaP, Tdap and Td Vaccines ( 1 - Tdap) 1987 Hepatitis B Vaccines (1 of 3 - 19+ 3-dose series) 1987 Cervical Cancer Screening Pa p with HPV Testing (Age 30 to 64) Every 5 Years 1998 Cervical Cancer Screening with HPV 1998 Mammogram Screening 2008 Pneumococcal Vaccine: 50+ Ye ars (1 of 1 - PCV) 2018 Zoster Vaccines (1 of 2) 2018 COVID-19 Vaccine ( - 2023-2 5 season) 2024 Meningococcal B Vaccine Aged Out No l onger eligible based on patient's age to complete this topic Meningococcal Vaccine Aged Out No olga kenn eligible based on patient's age to complete this topic RSV Immunizations Under 20 Months Aged Out No longer eligible based on patient's age to complete this topic
--- OUTSIDE RECORDS SUMMARY | 2025-05-14 00:53 | XMS_ITS | Patient Health Record ---
Author Organization [facility] [employer] [place] ([address]) Address [address] [place] [address] Care Team Providers Care Aeronautical Engineer Name Role Phone Rosana PEOPLES, Kendall Primary Care Provider Unavaila Caty Allison Unavailable [phone] Dr. Albina Lopez Unavailable Unavailable Bimal Gunderson Unavailable [phone] Allergies Allergen (clinical drug ingredient) Drug/Non Drug [...] review and pick correct strength-formula tion from [employer] options. If intended option is not shown, [...] review and pick correct strength-formula tion from [employer] options. If intended option is not shown, [...] review and pick correct strength-formula tion from [employer] options. If intended option is not shown, discontinue and re-order from Quick Search* Active Immunizations Vaccine Route Administration Date Status Comme nts NOC Tdap Unknown 09/24/2018 Administered Portal Information NOC Pneumovax 23 IM Intramuscular 06/15/2021 Administered NOC Pneumovax 23 IM Intramuscular 08/15/2024 Administered [employer] Quadrivalent Unknown 07/07/2020 Administered Portal Information COVID-19 (Moderna) Unknown 12/02/2020 Administered COVID-19 (Moderna) Unknown 01/11/2021 Administered Social History Tobacco Use: Social History Observation Description Date Details (start date - stop date) Never Smoker NA - NA Smoking Smart Form: Question Answer Notes Are you a: never smoker Tobacco Control (Standard) Question Answer Notes Tobacco use: Nonsmoker Problems Problem Type SNOMED Code ICD Code Onset Dates Problem Status W/U Status Risk Notes Problem Vitamin D deficiency (04010500) Vitamin D deficiency, unspecified (E55.9) Active confirmed Problem Manic disorder, sing le episode (662396679) Manic episode, unspecified (F30.9) Active confirmed Problem Anxiety disorder (150119273) Anxiety disorder, unspecified (F41.9) Active confirmed Problem Chronic allergic conjunctivitis (65091720) Other chronic allergic conjunctivitis (H10.45) Active confirmed Problem Allergic rhinitis caused by pollen (disorder) (87808967) Allergic rhinitis due to pollen (J30.1) Active confirmed Problem Allergic rhinitis caused by animal hair and dander (127114411040141) Allergic rhinitis due to animal (cat) (dog) hair and dander (J30.81) Active confirmed Problem Allergic rhinitis (22632363) Other allergic rhinitis (J30.89) Active confirmed Problem Uncomplicated modera te persistent asthma (091764070) Moderate persistent asthma, uncomplicated (J45.40) Active confirmed Problem Gastro-esophageal reflux disease without esophagitis (939294228) Gastro-esophagea l reflux disease without esophagitis (K21.9) Active confirmed Problem Gastric ulcer (713882081) Gastric ulcer, unspecified as acute or chronic, without hemorrhage or perforation (K25.9) Active confirmed Problem Allergic rhinitis caused by pollen (disorder) (21040376) Allergic rhinitis due to pollen (J30.1) Active confirmed Problem Allergic rhinitis caused by animal hair and dander (795377476555826) Allergic rhinitis due to animal (cat) (dog) hair and dander (J30.81) Active confirmed Problem Allergic rhinitis (07159649) Other allergic rhinitis (J30.89) Active confirmed Problem Chronic allergic conjunctivitis (11322457) Other chronic allergic conjunctivitis (H10.45) Active confirmed Problem Chronic sinusitis (28953768) Other chronic sinusitis (J32.8) Active confirmed Problem Pure hypercholesterolemia (387083853) Pure hypercholesterol emia, unspecified (E78.00) Active confirmed Problem Irritable bowel syndrome characterized by constipation (265462659) Irritable bowel syndrome with constipation (K58.1) Active confirmed Encounters Encounter Location Date Provider Diagnosis [facility] [address] [place], [place] [address] [address] [address] 08/15/2024 Caty Hanna Encounter for immunization Z23 ; Encounter for antibody response examination Z01.84 and Other chronic sinusitis J32.8 [facility] [address] [address] 05/16/2024 Caty Hanna Allergic rhinitis du e to pollen J30.1 ; Allergic rhinitis due to animal (cat) (dog) hair and dander J30.81 ; Other allergic rhinitis J30.89 and Other chronic allergic conjunctivitis H10.45 [facility] [employer] [address] [address] 05/21/2024 Caty Hanna Allergic rhinitis du e to pollen J30.1 ; Allergic rhinitis due to animal (cat) (dog) hair and dander J30.81 ; Other allergic rhinitis J30.89 and Other chronic allergic conjunctivitis H10.45 [facility] [address] [place], [place] [address] [address] [address] 06/04/2024 Caty Hanna Allergic rhinitis du e to pollen J30.1 ; Allergic rhinitis due to animal (cat) (dog) hair and dander J30.81 ; Other allergic rhinitis J30.89 and Other chronic allergic conjunctivitis H10.45 [facility] [address] [place], [place] [address] [address] [place] [address] 06/12/2024 Catyjohnson Chrism Allergic rhinitis du e to pollen J30.1 ; Allergic rhinitis due to animal (cat) (dog) hair and dander J30.81 ; Other allergic rhinitis J30.89 and Other chronic allergic conjunctivitis H10.45 [facility] [address] [place], [place] [address] [address] [address] 06/18/2024 Catyjohnson Chrism Allergic rhinitis du e to pollen J30.1 ; Allergic rhinitis due to animal (cat) (dog) hair and dander J30.81 ; Other allergic rhinitis J30.89 and Other chronic allergic conjunctivitis H10.45 [facility] [address] [place], [place] [address] [address] [address] 07/02/2024 Catyjohnson Hanna Allergic rhinitis du e to pollen J30.1 ; Allergic rhinitis due to animal (cat) (dog) hair and dander J30.81 ; Other allergic rhinitis J30.89 and Other chronic allergic conjunctivitis H10.45 [facility] [address] [place], [place] [address] [address] [place] [address] 07/17/2024 Caty Jacques Allergic rhinitis du e to pollen J30.1 ; Allergic rhinitis due to animal (cat) (dog) hair and dander J30.81 ; Other allergic rhinitis J30.89 and Other chronic allergic conjunctivitis H10.45 [facility] [address] [place], [place] [address] [address] [place] [address] 07/24/2024 Catyjohnson Chrism Allergic rhinitis du e to pollen J30.1 ; Allergic rhinitis due to animal (cat) (dog) hair and dander J30.81 ; Other allergic rhinitis J30.89 and Other chronic allergic conjunctivitis H10.45 [facility] [address] [place] [address] [employer] [address] [address] 08/08/2024 Caty Hanna Allergic rhinitis du e to pollen J30.1 ; Allergic rhinitis due to animal (cat) (dog) hair and dander J30.81 ; Other allergic rhinitis J30.89 and Other chronic allergic conjunctivitis H10.45 [facility] [address] [place], [place] [address] [address] [address] 09/12/2024 Catyjohnson Hanna Allergic rhinitis du e to pollen J30.1 ; Allergic rhinitis due to animal (cat) (dog) hair and dander J30.81 ; Other allergic rhinitis J30.89 and Other chronic allergic conjunctivitis H10.45 [facility] [address] [place] [address] [employer] [address] [address] 09/18/2024 Caty Hanna Allergic rhinitis du e to pollen J30.1 ; Allergic rhinitis due to animal (cat) (dog) hair and dander J30.81 ; Other allergic rhinitis J30.89 and Other chronic allergic conjunctivitis H10.45 [facility] [address] [place] [address] [employer] [address] [address] 10/09/2024 Caty Hanna Allergic rhinitis du e to pollen J30.1 ; Allergic rhinitis due to animal (cat) (dog) hair and dander J30.81 ; Other allergic rhinitis J30.89 and Other chronic allergic conjunctivitis H10.45 [facility] [address] [place], [place] [address] [address] [address] 10/21/2024 Catyjohnson Chrism Allergic rhinitis du e to pollen J30.1 ; Allergic rhinitis due to animal (cat) (dog) hair and dander J30.81 ; Other allergic rhinitis J30.89 and Other chronic allergic conjunctivitis H10.45 [facility] [address] [place], [place] [address] [address] [address] 11/05/2024 Caty Chrism Allergic rhinitis du e to pollen J30.1 ; Allergic rhinitis due to animal (cat) (dog) hair and dander J30.81 ; Other allergic rhinitis J30.89 and Other chronic allergic conjunctivitis H10.45 [facility] [address] [place] [address] [employer] [address] [address] 11/20/2024 Caty Hanna Allergic rhinitis du e to pollen J30.1 ; Allergic rhinitis due to animal (cat) (dog) hair and dander J30.81 ; Other allergic rhinitis J30.89 and Other chronic allergic conjunctivitis H10.45 [facility] [address] [place], [place] [address] [address] [place] [address] 12/03/2024 Catyjohnson Hanna Allergic rhinitis du e to pollen J30.1 ; Allergic rhinitis due to animal (cat) (dog) hair and dander J30.81 ; Other allergic rhinitis J30.89 and Other chronic allergic conjunctivitis H10.45 [facility] [address] [place] [address] [employer] [address] [address] 12/30/2024 Caty Hanna Allergic rhinitis du e to pollen J30.1 ; Allergic rhinitis due to animal (cat) (dog) hair and dander J30.81 ; Other allergic rhinitis J30.89 and Other chronic allergic conjunctivitis H10.45 [facility] [address] [place] [address] [employer] [address] [address] 01/28/2025 Caty Hanna Allergic rhinitis du e to pollen J30.1 ; Allergic rhinitis due to animal (cat) (dog) hair and dander J30.81 ; Other allergic rhinitis J30.89 and Other chronic allergic conjunctivitis H10.45 [facility] [address] [place], [place] [address] [address] [place] [address] 03/04/2025 Catyjohnson Hanna Allergic rhinitis du e to pollen J30.1 ; Allergic rhinitis due to animal (cat) (dog) hair and dander J30.81 ; Other allergic rhinitis J30.89 and Other chronic allergic conjunctivitis H10.45 [facility] [address] [place], [place] [address] [address] [place] [address] 04/08/2025 Caty Hanna Allergic rhinitis du e to pollen J30.1 ; Allergic rhinitis due to animal (cat) (dog) hair and dander J30.81 ; Other allergic rhinitis J30.89 and Other chronic allergic conjunctivitis H10.45 [facility] [address] [place] [address] 05/06/2025 Caty Hanna Allergic rhinitis du e to pollen J30.1 ; Allergic rhinitis due to animal (cat) (dog) hair and dander J30.81 ; Other allergic rhinitis J30.89 and Other chronic allergic conjunctivitis H10.[address] [address] 05/27/2024 Caty Hanna Moderate persistent asthma, uncomplicated J45.[address] [address] 07/25/2024 Caty Hanna [address] [address] 12/05/2024 Caty Hanna Assessments Encounter Date Diagnosis [...] 08/15/2024 Encounter for immunization (ICD-10 - Z23) 08/15/2024 Encounter for antibody response examination (ICD-10 - Z01.84) 07/24/2024 Allergic rhinitis due to pollen (ICD-10 - J30.1) 07/17/2024 Allergic rhinitis due to pollen (ICD-10 - J30.1) 07/02/2024 Allergic rhinitis due to pollen (ICD-10 - J30.1) 06/18/2024 Allergic rhinitis due to pollen (ICD-10 - J30.1) 06/12/2024 Allergic rhinitis due to pollen (ICD-10 - J30.1) 06/04/2024 Allergic rhinitis due to pollen (ICD-10 - J30.1) 05/27/2024 Moderate persistent asthma, uncomplicated (ICD-10 - J45.40) 05/21/2024 Allergic rhinitis due to pollen (ICD-10 - J30.1) 05/06/2025 Allergic rhinitis due to pollen (ICD-10 - J30.1) 04/08/2025 Allergic rhinitis due to pollen (ICD-10 - J30.1) 03/04/2025 Allergic rhinitis due to pollen (ICD-10 - J30.1) 11/20/2024 Allergic rhinitis due to pollen (ICD-10 - J30.1) 09/18/2024 Allergic rhinitis due to pollen (ICD-10 - J30.1) 09/12/2024 Allergic rhinitis due to pollen (ICD-10 - J30.1) 09/12/2024 Allergic rhinitis due to animal (cat) [...] (dog) hair and dander (ICD-10 - J30.81) 05/06/2025 Allergic rhinitis due to animal (cat) [...] 08/15/2024 Other chronic sinusitis (ICD-10 - J32.8) 11/05/2024 Allergic rhinitis due to animal (cat) [...] (dog) hair and dander (ICD-10 - J30.81) 08/08/2024 Allergic rhinitis due to animal (cat) (dog) hair and dander (ICD-10 - J30.81) 05/16/2024 Allergic rhinitis due to animal (cat) (dog) hair and dander (ICD-10 - J30.81) 05/16/2024 Other allergic rhinitis (ICD-10 - J30.89) 08/08/2024 Other allergic rhinitis (ICD-10 - J30.89) 10/09/2024 Other allergic rhinitis (ICD-10 - J30.89) 10/21/2024 Other allergic rhinitis (ICD-10 - J30.89) 01/28/2025 Other allergic rhinitis (ICD-10 - J30.89) 12/30/2024 Other allergic rhinitis (ICD-10 - J30.89) 12/03/2024 Other allergic rhinitis (ICD-10 - J30.89) 11/05/2024 Other allergic rhinitis (ICD-10 - J30.89) 07/24/2024 Other allergic rhinitis (ICD-10 - J30.89) 07/17/2024 Other allergic rhinitis (ICD-10 - J30.89) 07/02/2024 Other allergic rhinitis (ICD-10 - J30.89) 06/18/2024 Other allergic rhinitis (ICD-10 - J30.89) 06/12/2024 Other allergic rhinitis (ICD-10 - J30.89) 06/04/2024 Other allergic rhinitis (ICD-10 - J30.89) 05/21/2024 Other allergic rhinitis (ICD-10 - J30.89) 05/06/2025 Other allergic rhinitis (ICD-10 - J30.89) 04/08/2025 Other allergic rhinitis (ICD-10 - J30.89) 03/04/2025 Other allergic rhinitis (ICD-10 - J30.89) 11/20/2024 Other allergic rhinitis (ICD-10 - J30.89) 09/18/2024 Other allergic rhinitis (ICD-10 - J30.89) 09/12/2024 Other allergic rhinitis (ICD-10 - J30.89) 09/12/2024 Other chronic allergic conjunctivitis (ICD-10 - H10.45) 09/18/2024 Other chronic allergic conjunctivitis (ICD-10 - H10.45) 11/20/2024 Other chronic allergic conjunctivitis (ICD-10 - H10.45) 03/04/2025 Other chronic allergic conjunctivitis (ICD-10 - H10.45) 04/08/2025 Other chronic allergic conjunctivitis (ICD-10 - H10.45) 05/06/2025 Other chronic allergic conjunctivitis (ICD-10 - [...] OrtegaMoreno Bianca pal[place]ottie, 05/28/2025 07:30:00 AM, [address] [facility], [address], [place], [address], Insurance Providers Payer Name Payer Address Payer Phone Subscriber Number Group Number Insured Name Patient Relationship to Insured Coverage Start Date Coverage End Date [place] [address] [place] [address] [id number] Barbara Kaur Self - patient is the [...]
--- OUTSIDE RECORDS SUMMARY | 2025-05-14 00:53 | XMS_ITS | Clinical Summary ---
Author Organization [employer] [facility] [facility] [place] Address [address] [place] [address] Care Team Providers Care Operations Supervisor 2Nd Shift Name Role Phone Kendall Wayne MD Primary Care Provider [phone] Allergies Active Allergy Reactions Criticality Noted Date Comments Mold Extracts Unknown 05/09/2012 Penicillins Diarrhea,Nausea and Vomiting Low 2015 Unclassified Drug Unknown 05/09/2012 dust Medications loratadine (CLARITIN) 10 mg tablet Take 10 mg by mouth daily. Active buPROPion HCl (WELLBUTRIN XL) 150 mg Extended Release 24 hour tablet Take 150 mg by mouth daily clinical education consultant. Active fluticasone (FLONASE) 50 mcg/spray [place], SuspensionIndic ations:Nasal congestion Administer 2 Sprays in [...] on file Legal Sex Female 4:35 AM GRADUATE TEACHING ASSISTANT Gender Identity Not on file Sexual Orientation Not on file Last Filed Vital Signs Vital Sign Reading Time Taken Comments Blood Pressure 124/84 11/28/2022 8:06 AM GRADUATE TEACHING ASSISTANT Pulse 87 11/28/2022 8:06 AM GRADUATE TEACHING ASSISTANT Temperature 36.9 C (98.5 F) 04/20/2015 9:04 AM CDT Respiratory Rate 18 11/28/2022 8:06 AM GRADUATE TEACHING ASSISTANT Oxygen Saturation 100% 11/28/2022 8:06 AM GRADUATE TEACHING ASSISTANT Inhaled Oxygen Concentration - - Weight 75.2 kg (165 lb 12.8 oz) 10/19/2022 7:00 AM GRADUATE TEACHING ASSISTANT Height 172.7 cm (5' 8) 09/15/2021 2:00 PM GRADUATE TEACHING ASSISTANT Body Mass Index 25.21 09/15/2021 2:00 PM GRADUATE TEACHING ASSISTANT Plan of Treatment Health Maintenance Due Date [...] 2018 INFLUENZA VACCINE (#1) 2025 07/24/2015 Insurance [facility] BLUE ACCESS CHOICE Care Teams Operations Supervisor 2Nd Shift Relationship Specialty Start Date End Date Kendall Wayne MD [address] [place] [address] PCP - General Family Practice 06/08/21
--- OUTSIDE RECORDS SUMMARY | 2025-05-14 00:54 | XMS_ITS | Clinical Summary ---
Author Organization [facility] [employer] Address [address] [place] [address] Care Team Providers Care Cleaning Technician Name Role Phone Kendall Wayne MD Primary Care Provider [phone] Source Comments [facility] [employer],[facility] and Associated Physician Practices is amultiple site organization consisting of ambulatory clinics and hospital sitesin [place], [place], [place] and [place]. This disclosure is being madepursuant to the Care Everywhere program and may not contain all information available regarding this patient. Last updated 18.[facility] [employer] Allergies Active Allergy Reactions Criticality Noted Date Comments Amoxicillin Nausea and/or Vomiting 07/15/2016 Penicillins GI Discomfort 04/24/2020 Medications * Be aware that medications may not be up to date on this document. Alwaysverify current medications with the patient. fluticasone propionate (FLONASE) 50 MCG/ACT nasal spray Jasper 2 Sprays into each nostril once daily [...] on file Legal Sex Female 6:27 AM WOOL SACKER Gender Identity Not on file Sexual Orientation [...] topic Insurance ANTHEM ANTHEM ANTHEM Care Teams Cleaning Technician Relationship Specialty Start Date End Date Kendall Wayne MD [address] [place] [address] PCP - General 09/21/21
--- NOTE | 2025-05-14 07:26 | WPDHPUPDATE1 ---
History and Physical Update Update Date/Time: 05/14/25 07:26 History and Physical has been reviewed, including an updated exam of the patient. There are NO changes in the patient's condition. Risks, benefits, and alternatives have been discussed and questions answered. Patient agrees to proceed with procedure.
[2025-05-14] MEDS: ONDANSETRON INJ 4 MG/2 ML VIAL IV PUSH (09:30)
[2025-05-14] MEDS: CELECOXIB 200 MG CAPSULE PO (09:40)
[2025-05-14] MEDS: ACETAMINOPHEN 500 MG TABLET 1000 MG PO (09:40)
--- NOTE | 2025-05-14 10:38 | P.PNAN_ITS ---
Anes - Initial Pre Proc Eval Procedure: Operation Date: 05/14/25 10:30 Proposed Procedures p Right Rotator Cuff Repair - Napoleon Perez MD Date/Time: 05/14/25 10:38 Surgeon: Napoleon Perez MD Pre Op Diagnosis: Right Rotator Cuff tear Patient Data Age: 55 Gender: F Height: 1.73 m Weight: 73 kg Last Vital Signs Temp 98.8 F 05/14/25 09:30 Pulse 83 05/14/25 09:30 Resp 16 05/14/25 09:30 BP 117/72 05/14/25 09:30 Pulse Ox 97 05/14/25 09:30 O2 Del Method Room Air 05/14/25 09:30 Allergies Allergy/AdvReac Type Severity Reaction Status Date / Time mold Allergy Mild Congested Verified 05/14/25 10:02 Penicillins AdvReac Mild Vomiting Verified 05/14/25 10:02 amoxicillin (From Augmentin) AdvReac Vomiting Verified 05/14/25 10:02 clavulanic acid (From AdvReac Vomiting Verified 05/14/25 10:02 Augmentin) Home Medications ?Medication ?Instructions ?Recorded ?Confirmed ?Type estradiol 1 mg tablet 1 mg PO DAILY 02/04/21 05/07/25 History albuterol sulfate 90 mcg/actuation 1 inh inhalation Q4H PRN shortness 09/27/22 05/07/25 Rx aerosol inhaler (ProAir HFA) of breath or wheezing #6.7 grams alprazolam 0.5 mg tablet 0.5 mg PO QHS PRN Anxiety 11/07/22 05/07/25 History bupropion HCl 300 mg 24 hr tablet, 300 mg PO QAM 11/07/22 05/07/25 History extended release levocetirizine 5 mg tablet (Xyzal) 5 mg PO DAILY 11/07/22 05/07/25 History zolpidem 10 mg tablet 10 mg PO DAILY 11/07/22 05/07/25 History atomoxetine 40 mg capsule 40 mg PO DAILY 12/02/22 05/07/25 History topiramate 50 mg tablet 50 mg PO DAILY 05/22/23 05/07/25 History fluticasone propionate 50 1 spray intranasal BID 08/15/23 05/07/25 History mcg/actuation nasal spray,suspension ondansetron 4 mg disintegrating See Rx Instructions .Route 04/08/24 05/07/25 Rx tablet .COMPLEX #60 tabs rosuvastatin 10 mg tablet 10 mg PO DAILY #90 tabs 09/04/24 05/07/25 Rx ferrous sulfate 325 mg (65 mg 325 mg PO DAILY 3 months #90 tabs 10/21/24 05/07/25 Rx iron) tablet (FeroSul) melatonin 1 mg-magnesium citrate 1 tablet PO HS 10/21/24 05/07/25 History 71.5 mg tablet,delayed release (SlowMag Mg Calm-Sleep) scopolamine base 1 mg over 3 days 1 patch transdermal Q3D PRN nausea 04/28/25 05/07/25 Rx transdermal patch #4 ea benzoyl peroxide 5 % topical gel 1 applic topical DAILY #42.5 grams 05/02/25 05/07/25 Rx chlorhexidine gluconate 4 % 1 applic topical ONCE #237 mL 05/02/25 05/07/25 Rx topical liquid (Hibiclens) clindamycin phosphate 1 % topical 1 applic topical DAILY #30 grams 05/02/25 05/07/25 Rx gel omeprazole 40 mg capsule,delayed 40 mg PO DAILY 3 months #90 caps 05/14/25 Rx release Patient hx anesthesia problems: post op nausea/vomiting Family hx anesthesia problems: none Results Review: All pre-operative results and documents have been reviewed as part of the pre- operative evaluation. [facility] Past Medical History Medical History Otitis media Influenza Epigastric pain Recurrent tonsillitis Palpitations Chest pain UTI (urinary tract infection) Depression with anxiety Obstructive sleep apnea Gas bloat syndrome Nausea Hyperinflation of lungs High cholesterol Irritable bowel syndrome with constipation GERD (gastroesophageal reflux disease) Hx of gastric ulcer Asthma Pain of radial side of wrist Left wrist injury Surgical History Surgical History History of lumpectomy of left breast H/O: hysterectomy Family History Family History Father Mother Diabetes mellitus Hypertension Obesity Neuropathy Depression Thyroid disorder Sibling Hyperlipidemia Depression Thyroid disorder Other Asthma Hypertension Depression Grandparent Lung cancer Bladder cancer Diabetes mellitus Hypertension Depression Heart disease Cerebrovascular accident Thyroid disorder Social History Social History Smoking status: Never smoker Second hand tobacco smoke exposure: No Alcohol intake: never Substance use: never Substance use type: does not use Lack of Transportation: No Lack of Food: Never True Current Housing: I Have Housing Concerned About Future Housing: No Difficulty Paying Gas/Electric Bills: No Difficulty Paying for Meds: No Currently Unemployed: No Education: Master's Degree or Higher Difficulty w/ Childcare or Family Care: No Living arrangements: with family Additional living arrangements comments: LIVES WITH [facility] [phone] Occupation/Education: occupation 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 ) Neurological: alert and oriented Last oral intake: >/= 8 hours ASA classification: II Emergent: no Anesthetic plan: proceed Anesthesia type and monitoring: general ETT and standard monitoring Results Review: All pre-operative results and documents have been reviewed as part of the pre- operative evaluation. Hyperlipidemia, mild BRYN, no CPAP, mild RAD but has been feeling well recently. Pt had stress test 05/12/25 with nml LVEF, no ischemia. Informed Consent: The patient's anesthetic plan and its attendant risks and benefits were discussed with the patient/family/POA. Questions were solicited and answers provided to the satisfaction of the patient/family/POA.
--- NOTE | 2025-05-14 10:55 | WPDANESPNB ---
Anes - Peripheral Nerve Block Date/Time: 05/14/25 10:55 I have discussed with the patient/family/POA the placement of a peripheral nerve block for post-operative pain management, including associated risks, benefits, complications, and side effects. Alternative methods of post-operative analgesia were detailed. Questions were solicited and answers provided to the satisfaction of the patient/family/POA. Time-Out: A pre-procedural Time-Out was completed immediately before starting the procedure and confirmed: Patient Identification, Site, Procedure, Patient Position and the Availability of Requisite Equipment. Clinical Indications: Acute post-operative pain management requested by the operative surgeon. Nerve Block Insertion Note Anes-nerve block: interscalene right Patient position: supine Skin prep: chlorhexidine Needle: 22 gauge, stimulating, insulated echogenic needle. Needle length: 80 mm Technique: ultrasound Injectate: other (Bupiv 0.5% 15 mls. ) Observations: tolerated well Complications: none Procedure start time:: 1048 Procedure end time:: 1054
[2025-05-14] MEDS: ceFAZolin 2 GM in SODIUM CHLORIDE 0.9% IV 50 ML 100 ML IVPB (11:25)
--- NOTE | 2025-05-14 12:49 | W.PM.PROC2 ---
Procedure Note - Detailed Date of Procedure 05/14/25 Pre-op Diagnosis Right Rotator Cuff tear Post-op Diagnosis Same Procedure Performed REPAIR RIGHT ROTATOR CUFF Surgeon Napoleon Perez MD Anesthesia General Description of Procedure THE PATIENT WAS TAKEN TO THE OPERATING ROOM AND THEN INTUBATED AND PLACED IN THE BEACH CHAIR POSITION. THE RIGHT UPPER EXTREMITY WAS PREPPED AND DRAPED IN THE NORMAL STERILE FASHION. AN INCISION WAS MADE IN BETWEEN THE DYLON-LATERAL ACROMION AND THE AC JOINT. THE FASCIA WAS IDENTIFIED. NEXT A MINI OPEN INCISION WAS MADE THROUGH THE DELTOID MUSCLE EXPOSING THE SUBACROMIAL SPACE. A LIMITED ACROMIOPLASTY WAS PREFORMED. THE ROTATOR CUFF WAS IDENTIFIED. THERE WAS A FULL THICKNESS TEAR. IT MEASURED APPROXIMATELY 3 CM X 2 CM. THE GREATER TUBEROSITY WAS DEBRIDED TO BLEEDING BONE. 3 ARTHREX 5.5 SUTURE ANCHORS WERE PLACED IN TO GOOD BONE AND HAD VERY GOOD BITES. DAE-FARIHA TYPE REPAIRS WERE DONE TO THE ROTATOR CUFF AND THERE WAS GOOD APPROXIMATION TO THE GREATER TUBEROSITY. THE REPAIR WAS EXCELLENT. THERE WAS NO IMPINGEMENT ON THE REPAIR FROM THE ACROMION WITH RANGE OF MOTION. THE WOUND WAS IRRIGATED WITH COPIOUS AMOUNTS OF ANTIBIOTIC SOLUTION. THE DELTOID MUSCLE WAS REPAIRED WITH #2 FIBER WIRE AND 0 VICRYL SUTURE. THE SUBCUTANEOUS LAYER WAS APPROXIMATED WITH 2-0 VICRYL. THE SKIN WAS APPROXIMATED WITH 3-0 QUIL AND DERMABOND. STERILE DRESSING WAS APPLIED. PATIENT WAS EXTUBATED. Estimated Blood Loss 20 Complications No immediate complications Condition Stable Disposition PACU
[2025-05-14] MEDS: LACTATED RINGERS 1,000 ML 30 ML IV CONT ×2 (13:10)
== END 2025-05-14 14:50 | disposition home or self-care (01) ==
PROVIDERS: PCP Family Medicine; Visit Provider Orthopaedic Surgery
PROC: (CPT 23420; principal; 2025-05-14 10:30)
DX: M75.121 Complete rotator cuff tear or rupture of right shoulder, not specified as traumatic (principal); G47.33 Obstructive sleep apnea (adult) (pediatric); E78.00 Pure hypercholesterolemia, unspecified; K58.1 Irritable bowel syndrome with constipation; K21.9 Gastro-esophageal reflux disease without esophagitis; J45.909 Unspecified asthma, uncomplicated; R00.2 Palpitations; F41.8 Other specified anxiety disorders; Z79.51 Long term (current) use of inhaled steroids; Z98.890 Other specified postprocedural states; Z87.11 Personal history of peptic ulcer disease; Z80.1 Family history of malignant neoplasm of trachea, bronchus and lung; Z80.3 Family history of malignant neoplasm of breast; Z82.49 Family history of ischemic heart disease and other diseases of the circulatory system; G89.18 Other acute postprocedural pain
CPT/HCPCS: 64415; 23410; J0690; A9270; C1713; J2250; J2405; J3010; J7120

== ENCOUNTER 2025-06-08 14:51 | Emergency (ER) | payer BC, SELFPAY ==
--- OUTSIDE RECORDS SUMMARY | 2025-06-08 14:55 | XMS_ITS | Clinical Summary ---
Author Organization [employer] [facility] [place] Address [address] [place] [address] Care Team Providers Care Talk Show Host Name Role Phone Kendall Wayne MD Primary Care Provider Allergies Active Allergy Reactions Criticality Noted Date Comments Mold Extracts Unknown 05/09/2012 Penicillins Diarrhea,Nausea and Vomiting Low 2015 Unclassified Drug Unknown 05/09/2012 dust Medications loratadine (CLARITIN) 10 mg tablet Take 10 mg by mouth daily. Active buPROPion HCl (WELLBUTRIN XL) 150 mg Extended Release 24 hour tablet Take 150 mg by mouth daily asset protection greeter. Active fluticasone (FLONASE) 50 mcg/spray [place], SuspensionIndic ations:Nasal congestion Administer 2 Sprays in [...] on file Legal Sex Female 4:35 AM VOLTAGE INSPECTOR Gender Identity Not on file Sexual Orientation Not on file Last Filed Vital Signs Vital Sign Reading Time Taken Comments Blood Pressure 124/84 11/28/2022 8:06 AM VOLTAGE INSPECTOR Pulse 87 11/28/2022 8:06 AM VOLTAGE INSPECTOR Temperature 36.9 C (98.5 F) 04/20/2015 9:04 AM CDT Respiratory Rate 18 11/28/2022 8:06 AM VOLTAGE INSPECTOR Oxygen Saturation 100% 11/28/2022 8:06 AM VOLTAGE INSPECTOR Inhaled Oxygen Concentration - - Weight 75.2 kg (165 lb 12.8 oz) 10/19/2022 7:00 AM VOLTAGE INSPECTOR Height 172.7 cm (5' 8) 09/15/2021 2:00 PM VOLTAGE INSPECTOR Body Mass Index 25.21 09/15/2021 2:00 PM VOLTAGE INSPECTOR Plan of Treatment Health Maintenance Due Date [...] 2018 INFLUENZA VACCINE (#1) 2025 07/24/2015 Insurance [facility] BL[facility] ACCESS CHOICE Care Teams Talk Show Host Relationship Specialty Start Date End Date Kendall Wayne MD [address] [place] [address] PCP - General Family Practice 06/08/21
--- OUTSIDE RECORDS SUMMARY | 2025-06-08 14:55 | XMS_ITS | Encounter Summary ---
Author Organization [employer] Address [address] [place] [address] Care Team Providers Care Pediatric Genetic Counselor Name Role Phone Kendall Wayne MD Primary Care Provider Encounter Details Date Type Department Care Team (Late st Contact Info) Description 11/24/[address] [facility] [address] [place] [address] Sosa Keita, RN Social History Tobacco Use Types Packs/Day Years Used Date Smoking Tobacco: Never Smokeless Tobacco: Never Alcohol Use Standard Drinks/Week Comments Yes 0 (1 standard drink = 0.6 oz pur e alcohol) rare Comments No Sex and Gender Information Value Date Recorded Sex Assigned at Not on file Legal Sex Female 4:35 AM SOLE RUFFER Gender Identity Not on file Sexual Orientation Not on file COVID-19 Exposure Response Date Recorded In the last 10 days, have yo u been in contact with someone who was confirmed or suspected to have Coronavirus/COVID-19? No / Unsure 11/17/2022 6:33 AM SOLE RUFFER documented as of this encounter Miscellaneous Notes [...] appointment with an arrival time of 0630. RUFFER documented in this encounter Plan of Treatment Not on file documented as of this encounter Visit Diagnoses Not on filedocumented in this encounter Care Teams Pediatric Genetic Counselor Relationship Specialty Start Date End Date Kendall Wayne MD [address] [place] [address] PCP - General Family Practice 06/08/21 documented as of this encounter
--- OUTSIDE RECORDS SUMMARY | 2025-06-08 14:55 | XMS_ITS | Clinical Summary ---
Author Organization [facility] [employer] Address [address] [place] [address] Care Team Providers Care Bacteriology Professor Name Role Phone Kendall Wayne MD Primary Care Provider [phone] Source Comments [facility] and Associated [facility] Practices is amultiple site organization consisting of ambulatory clinics and hospital sitesin [place], [place], [place] and [place]. This disclosure is being madepursuant to the Care Everywhere program and may not contain all information available regarding this patient. Last updated 18.[facility] Allergies Active Allergy Reactions Criticality Noted Date Comments Amoxicillin Nausea and/or Vomiting 07/15/2016 Penicillins GI Discomfort 04/24/2020 Medications * Be aware that medications may not be up to date on this document. Alwaysverify current medications with the patient. fluticasone propionate (FLONASE) 50 MCG/ACT nasal spray [place] 2 Sprays into each nostril once daily [...] on file Legal Sex Female 6:27 AM THEATRICAL AGENT Gender Identity Not on file Sexual Orientation [...] topic Insurance ANTHEM ANTHEM ANTHEM Care Teams Bacteriology Professor Relationship Specialty Start Date End Date Kendall Wayne MD [address] [place] [address] PCP - General 09/21/21
--- OUTSIDE RECORDS SUMMARY | 2025-06-08 14:55 | XMS_ITS | Clinical Summary ---
Author Organization [facility] Address [address] [place] [address] Care Team Providers Care Farm Technician Name Role Phone Unavailable Primary Care Provider [...]
--- OUTSIDE RECORDS SUMMARY | 2025-06-08 14:55 | XMS_ITS | Patient Health Record ---
Author Organization [facility] [employer] ([address]) Address [address] [place] [address] Care Team Providers Care Millwright Apprentice Name Role Phone Rosana PEOPLES, Kendall Primary Care Provider Unavaila Caty Allison Unavailable [phone] Dr. Albina Lopez Unavailable Unavailable Bimal Gunderson Unavailable [phone] Allergies Allergen (clinical drug ingredient) Drug/Non Drug Allergy documented on EMR Reaction Allergy Type Onset Date Status Penicillin stomach upset Drug Allergy Ac tive Reason For Referral No Information Medications Medication SIG (Take, Route, Frequency, Duration) Notes Start Date End Date Status XYZAL 5 mg 1 tab(s) orally once a day (in the evening) Active BREZTRI AEROSPHERE 160 mcg-4.8 mcg-9 mcg/inh 2 puff(s) inhaled 2 times a day; Duration: 30 days Active SINGULAIR 10 mg 1 tab(s) orally once a day; Duration: 90 days Active ALPRAZolam 0.5 MG 1 tab(s) orally Qday, PRN Active PROAIR HFA 90 MCG/INH 2 PUFF(S) INHALED [...] directed intramuscularly once; Duration: 1 day Active SIT (TRADITIONAL) variable per schedule SC per schedule; Duration: to be determined Active AZELASTINE HYDROCHLORIDE NASAL 137 mcg/inh 2 spray(s) intranasally 2 times a day; Duration: 30 days Active buPROPion HCl ER (XL) 300 MG 1 tab(s) orally 2 times a day Active AUVI -Q 0.3 mg as directed intramuscularly once; Duration: 1 day Active Flonase Allergy Relief 50 MCG/ACT 2 spray(s) intranasally (avoid nasal septum) once a day Active FLUTICASONE NASAL 50 mcg/inh 2 [...] review and pick correct strength-formula tion from [employer] options. If intended option is not shown, discontinue and re-order from Quick Search* Active Vitamin D2 1.25 MG 1 CAP(S) ORALLY ONCE A WEEK *Please review and pick correct strength-formula tion from [employer] options. If intended option is not shown, discontinue and re-order from Quick Search* Active Rosuvastatin Calcium 20 MG 1 tab(s) orally once a week Active NASAL WASHES N/A DIRECTED INTRANASALLY NEEDED; Duration: 30 *Please review for potential replacement for e-prescription and drug interaction check* Active Myrbetriq 50 MG 1 tab(s) orally once a day Active Cetirizine HCl 10 MG 1 tab(s) orally once a day; Duration: 30 days Active Albuterol Sulfate HFA 108 (90 Base) MCG/ACT 2 puffs Inhalation every 6 hrs; Duration: 30 days 05/27/2024 Active Trelegy Ellipta 200 MCG-62.5 MCG-25 MCG/INH 1 PUFF(S) INHALED ONCE A DAY; Duration: 30 DAYS *Please review and pick correct strength-formula tion from [employer] options. If intended option is not shown, discontinue and re-order from Quick Search* Not-Taking Omeprazole 40 MG 1 cap(s) orally once a day Active MYRBETRIQ 50 mg 1 tab(s) orally once a day Active ALPRAZOLAM 0.5 mg 1 tab(s) orally Qday, PRN Active BUPROPION 300 mg/24 hours 1 tab(s) orally 2 times a day Active FLONASE 0.05 mg/inh 2 spray(s) intranasally (avoid nasal septum) once a day Active TRELEGY ELLIPTA 200 mcg-62.5 mcg-25 mcg/inh 1 puff(s) inhaled once a day; Duration: 30 days Not-Taking OMEPRAZOLE 40 mg 1 cap(s) orally once a day Active VITAMIN D2 1.25 mg 1 cap(s) orally once a week Active ROSUVASTATIN 20 mg 1 tab(s) orally once a week Active Fluticasone Propionate 50 MCG/ACT 2 spray(s) in each nostril BID; Duration: 30 day(s) Active Immunizations Vaccine Route Administration Date Status Comme nts COVID-19 (Moderna) Unknown 01/11/2021 Administered [employer] Quadrivalent Unknown 07/07/2020 Administered Portal Information NOC Pneumovax 23 IM Intramuscular 08/15/2024 Administered NOC Tdap Unknown 09/24/2018 Administered Portal Information COVID-19 (Moderna) Unknown 12/02/2020 Administered NOC Pneumovax 23 IM Intramuscular 06/15/2021 Administered Social History Tobacco Use: Social History Observation Description Date Details (start date - stop date) Never Smoker NA - NA Smoking Smart Form: Question Answer Notes Are you a: never smoker Tobacco Control (Standard) Question Answer Notes Tobacco use: Nonsmoker Problems Problem Type SNOMED Code ICD Code Onset Dates Problem Status W/U Status Risk Notes Problem Vitamin D deficiency (75232661) Vitamin D deficiency, unspecified (E55.9) Active confirmed Problem Manic disorder, sing le episode (883631403) Manic episode, unspecified (F30.9) Active confirmed Problem Anxiety disorder (886522708) Anxiety disorder, unspecified (F41.9) Active confirmed Problem Chronic allergic conjunctivitis (31507685) Other chronic allergic conjunctivitis (H10.45) Active confirmed Problem Allergic rhinitis caused by pollen (disorder) (03155706) Allergic rhinitis due to pollen (J30.1) Active confirmed Problem Allergic rhinitis caused by animal hair and dander (722095204755316) Allergic rhinitis due to animal (cat) (dog) hair and dander (J30.81) Active confirmed Problem Allergic rhinitis (25334920) Other allergic rhinitis (J30.89) Active confirmed Problem Uncomplicated modera te persistent asthma (017772319) Moderate persistent asthma, uncomplicated (J45.40) Active confirmed Problem Gastro-esophageal reflux disease without esophagitis (878147760) Gastro-esophagea l reflux disease without esophagitis (K21.9) Active confirmed Problem Gastric ulcer (171011460) Gastric ulcer, unspecified as acute or chronic, without hemorrhage or perforation (K25.9) Active confirmed Problem Allergic rhinitis caused by pollen (disorder) (51228559) Allergic rhinitis due to pollen (J30.1) Active confirmed Problem Allergic rhinitis caused by animal hair and dander (176323971122955) Allergic rhinitis due to animal (cat) (dog) hair and dander (J30.81) Active confirmed Problem Allergic rhinitis (03958299) Other allergic rhinitis (J30.89) Active confirmed Problem Chronic allergic conjunctivitis (46851436) Other chronic allergic conjunctivitis (H10.45) Active confirmed Problem Chronic sinusitis (52861099) Other chronic sinusitis (J32.8) Active confirmed Problem Pure hypercholesterolemia (460375224) Pure hypercholesterol emia, unspecified (E78.00) Active confirmed Problem Irritable bowel syndrome characterized by constipation (226809212) Irritable bowel syndrome with constipation (K58.1) Active confirmed Encounters Encounter Location Date Provider Diagnosis [facility] [address] [facility] [employer] [address] [address] 05/28/2025 Caty Hanna Allergic rhinitis du e to pollen J30.1 ; Allergic rhinitis due to animal (cat) (dog) hair and dander J30.81 ; Other allergic rhinitis J30.89 and Other chronic allergic conjunctivitis H10.45 [facility] [address] [place] [address] [employer] [address] [address] 05/06/2025 Caty Hanna Allergic rhinitis du e to pollen J30.1 ; Allergic rhinitis due to animal (cat) (dog) hair and dander J30.81 ; Other allergic rhinitis J30.89 and Other chronic allergic conjunctivitis H10.45 [facility] [address] [facility] [address] [address] 04/08/2025 Caty Hanna Allergic rhinitis du e to pollen J30.1 ; Allergic rhinitis due to animal (cat) (dog) hair and dander J30.81 ; Other allergic rhinitis J30.89 and Other chronic allergic conjunctivitis H10.45 [facility] [address] [place], [place] [address] [address] [place] [address] 03/04/2025 Caty Hanna Allergic rhinitis du e to pollen J30.1 ; Allergic rhinitis due to animal (cat) (dog) hair and dander J30.81 ; Other allergic rhinitis J30.89 and Other chronic allergic conjunctivitis H10.45 [facility] [address] [place], [place] [address] [address] [place] [phone] 01/28/2025 Caty Hanna Allergic rhinitis du e to pollen J30.1 ; Allergic rhinitis due to animal (cat) (dog) hair and dander J30.81 ; Other allergic rhinitis J30.89 and Other chronic allergic conjunctivitis H10.45 [facility] [address] [place], [place] [address] [address] [place] [address] 12/30/2024 Caty Hanna Allergic rhinitis du e to pollen J30.1 ; Allergic rhinitis due to animal (cat) (dog) hair and dander J30.81 ; Other allergic rhinitis J30.89 and Other chronic allergic conjunctivitis H10.45 [facility] [address] [place], [place] [address] [address] [place] [address] 12/03/2024 Caty Hanna Allergic rhinitis du e to pollen J30.1 ; Allergic rhinitis due to animal (cat) (dog) hair and dander J30.81 ; Other allergic rhinitis J30.89 and Other chronic allergic conjunctivitis H10.45 [facility] [employer] [facility] [address] [place] [address] 11/20/2024 Caty Hanna Allergic rhinitis du e to pollen J30.1 ; Allergic rhinitis due to animal (cat) (dog) hair and dander J30.81 ; Other allergic rhinitis J30.89 and Other chronic allergic conjunctivitis H10.45 [facility] [address] [place], [place] [address] [address] [place] [address] 11/05/2024 Caty Hanna Allergic rhinitis du e to pollen J30.1 ; Allergic rhinitis due to animal (cat) (dog) hair and dander J30.81 ; Other allergic rhinitis J30.89 and Other chronic allergic conjunctivitis H10.45 [facility] [address] [place], [place] [address] [address] [place] [address] 10/21/2024 Caty Hanna Allergic rhinitis du e to pollen J30.1 ; Allergic rhinitis due to animal (cat) (dog) hair and dander J30.81 ; Other allergic rhinitis J30.89 and Other chronic allergic conjunctivitis H10.45 [facility] [address] [place], [place] [address] [address] [place] [address] 10/09/2024 Caty Hanna Allergic rhinitis du e to pollen J30.1 ; Allergic rhinitis due to animal (cat) (dog) hair and dander J30.81 ; Other allergic rhinitis J30.89 and Other chronic allergic conjunctivitis H10.45 [facility] [address] [place], [place] [address] [address] [place] [address] 09/18/2024 Caty Hanna Allergic rhinitis du e to pollen J30.1 ; Allergic rhinitis due to animal (cat) (dog) hair and dander J30.81 ; Other allergic rhinitis J30.89 and Other chronic allergic conjunctivitis H10.45 [facility] [address] [place], [place] [address] [address] [place] [address] 09/12/2024 Caty Hanna Allergic rhinitis du e to pollen J30.1 ; Allergic rhinitis due to animal (cat) (dog) hair and dander J30.81 ; Other allergic rhinitis J30.89 and Other chronic allergic conjunctivitis H10.45 [facility] [address] [place], [place] [address] [address] [place] [phone] 08/08/2024 Caty Hanna Allergic rhinitis du e to pollen J30.1 ; Allergic rhinitis due to animal (cat) (dog) hair and dander J30.81 ; Other allergic rhinitis J30.89 and Other chronic allergic conjunctivitis H10.45 [facility] [address] [place], [place] [address] [address] [place] [phone] 07/24/2024 Caty Hanna Allergic rhinitis du e to pollen J30.1 ; Allergic rhinitis due to animal (cat) (dog) hair and dander J30.81 ; Other allergic rhinitis J30.89 and Other chronic allergic conjunctivitis H10.45 [facility] [address] [place] [address] [employer] [address] [address] 07/17/2024 Caty Hanna Allergic rhinitis du e to pollen J30.1 ; Allergic rhinitis due to animal (cat) (dog) hair and dander J30.81 ; Other allergic rhinitis J30.89 and Other chronic allergic conjunctivitis H10.45 [facility] [address] [place] [address] [place] [phone] 07/02/2024 Caty Hanna Allergic rhinitis du e to pollen J30.1 ; Allergic rhinitis due to animal (cat) (dog) hair and dander J30.81 ; Other allergic rhinitis J30.89 and Other chronic allergic conjunctivitis H10.45 [facility] [address] [place] [address] [place] [phone] 06/18/2024 Caty Hanna Allergic rhinitis du e to pollen J30.1 ; Allergic rhinitis due to animal (cat) (dog) hair and dander J30.81 ; Other allergic rhinitis J30.89 and Other chronic allergic conjunctivitis H10.45 [facility] [address] [place] [phone] 06/12/2024 Caty Hanna Allergic rhinitis du e to pollen J30.1 ; Allergic rhinitis due to animal (cat) (dog) hair and dander J30.81 ; Other allergic rhinitis J30.89 and Other chronic allergic conjunctivitis H10.45 [facility] [address] [place] [phone] 08/15/2024 Caty Hanna Encounter for immunization Z23 ; Encounter for antibody response examination Z01.84 and Other chronic sinusitis J32.[address] [address] 12/05/2024 Caty Hanna [address] [address] 07/25/2024 Caty Hanna Assessments Encounter Date Diagnosis (ICD Code) Assessment Notes Treatment Notes Treatment Clinical Notes Section Notes 06/12/2024 Allergic rhinitis due to pollen (ICD-10 [...] for antibody response examination (ICD-10 - Z01.84) 05/28/2025 Allergic rhinitis due to pollen (ICD-10 - J30.1) 05/28/2025 Allergic rhinitis due to animal (cat) (dog) [...] hair and dander (ICD-10 - J30.81) 06/12/2024 Other allergic rhinitis (ICD-10 - J30.89) [...] 05/06/2025 Other allergic rhinitis (ICD-10 - J30.89) 05/28/2025 Other allergic rhinitis (ICD-10 - J30.89) 05/28/2025 Other chronic allergic conjunctivitis (ICD-10 - H10.45) [...] 2023 DIPHTHERIA ANTITOXOID ANTIBODY DIPHTHERIA ANTITOXOID ANTIBODY 10/30/202 3 IMMUNOGLOBULINS G/A/M 08/21/2023 IMMUNOGLOBULINS G/A/M 08/23/2023 VITAMIN D, 25-OH, TOTAL, [place] 08/21/2023 VITAMIN D, 25-OH, TOTAL, [place] 08/23/2023 HAEMOPHILUS INFLUENZAE B ANTIBODY, IGG 0 12/25/2023 HAEMOPHILUS INFLUENZAE B ANTIBODY, IGG 1 10/23/2022 HAEMOPHILUS INFLUENZAE B ANTIBODY, IGG 1 -Pneumococcal Ab (23 Serotype) 3 Insurance Providers Payer Name Payer Address Payer Phone Subscriber Number Group Number Insured Name Patient Relationship to Insured Coverage Start Date Coverage End Date [place] [address] [place] [address] [phone] [id number] Barbara Karu Self - patient is the insured 1 [...]
--- NOTE | 2025-06-08 14:56 | ED.GENADULT ---
HPI - General Adult General Chief complaint: Recheck/Abnormal Lab/Rx Stated complaint: post op comp Time Seen by Provider: 06/08/25 14:55 Source: patient Mode of arrival: ambulatory Limitations: no limitations History of Present Illness HPI narrative: 55 years old white female status post right rotator cuff surgery May 14, 2025 developed some more pain and soreness at the site of the surgery in the last few days got worse last night, currently patient feeling more swelling at that area and like having fluid in it twice and warm to touch. She denies any fever, chills, nausea, vomiting or history of diabetes. Related Data Home Medications ?Medication ?Instructions ?Recorded ?Confirmed ?Last Taken ?Type estradiol 1 mg tablet 1 mg PO DAILY 02/04/21 05/29/25 09/14/21 History alprazolam 0.5 mg tablet 0.5 mg PO QHS PRN Anxiety 11/07/22 05/29/25 Unknown History bupropion HCl 300 mg 24 hr tablet, 300 mg PO QAM 11/07/22 05/29/25 Unknown History extended release levocetirizine 5 mg tablet (Xyzal) 5 mg PO DAILY 11/07/22 05/29/25 Unknown History zolpidem 10 mg tablet 10 mg PO DAILY 11/07/22 05/29/25 Unknown History atomoxetine 40 mg capsule 40 mg PO DAILY 12/02/22 05/29/25 Unknown History topiramate 50 mg tablet 50 mg PO DAILY 05/22/23 05/29/25 Unknown History fluticasone propionate 50 1 spray intranasal BID 08/15/23 05/29/25 Unknown History mcg/actuation nasal spray,suspension melatonin 1 mg-magnesium citrate 1 tablet PO HS 10/21/24 05/29/25 Unknown History 71.5 mg tablet,delayed release (SlowMag Mg Calm-Sleep) Allergies Allergy/AdvReac Type Severity Reaction Status Date / Time mold Allergy Mild Congested Verified 06/08/25 14:52 Penicillins AdvReac Mild Vomiting Verified 06/08/25 14:52 amoxicillin (From Augmentin) AdvReac Vomiting Verified 06/08/25 14:52 clavulanic acid (From AdvReac Vomiting Verified 06/08/25 14:52 Augmentin) Review of Systems Review of Systems: All systems reviewed & are unremarkable except as noted in HPI and below PMFSH Past Medical History Medical History Otitis media Influenza Epigastric pain Recurrent tonsillitis Palpitations Chest pain UTI (urinary tract infection) Depression with anxiety Obstructive sleep apnea Gas bloat syndrome Nausea Hyperinflation of lungs High cholesterol Irritable bowel syndrome with constipation GERD (gastroesophageal reflux disease) Hx of gastric ulcer Asthma Pain of radial side of wrist Left wrist injury Surgical History Surgical History History of lumpectomy of left breast H/O: hysterectomy Family History Family History Father Mother Diabetes mellitus Hypertension Obesity Neuropathy Depression Thyroid disorder Sibling Hyperlipidemia Depression Thyroid disorder Other Asthma Hypertension Depression Grandparent Lung cancer Bladder cancer Diabetes mellitus Hypertension Depression Heart disease Cerebrovascular accident Thyroid disorder Social History Social History Smoking status: Former smoker Second hand tobacco smoke exposure: No Alcohol intake: never Substance use: never Substance use type: does not use Lack of Transportation: No Lack of Food: Never True Current Housing: I Have Housing Concerned About Future Housing: No Difficulty Paying Gas/Electric Bills: No Difficulty Paying for Meds: No Currently Unemployed: No Education: Master's Degree or Higher Difficulty w/ Childcare or Family Care: No Living arrangements: with family Additional living arrangements comments: LIVES WITH SPOUSE YAS [phone] Occupation/Education: occupation 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 Musculoskeletal: Right shoulder exam showing post up surgical scar, slightly red, tender to touch, no discharge, no swelling, right shoulder range of movement is intact without any limitation Neurologic: Alert and oriented ?3, LITIGATION PAR[place]GAL is normal as tested, no gross motor deficit Course Consultations Consultation #1: DR SAMPSON 1 G ANCEF IM, DISCHARGED ON KEFLEX, FOLLOW-UP WITH ORTHO IN 3-5 DAYS Date: 06/08/25 Time: 15:56 Vital Signs Vital signs: Vital Signs Temperature 36.8 C 06/08/25 15:00 Pulse Rate 102 H 06/08/25 15:00 Respiratory Rate 16 06/08/25 15:00 Pulse Oximetry 100 06/08/25 15:00 Oxygen Delivery Room Air 06/08/25 15:00 Temperature 36.8 C 06/08/25 15:00 Pulse Rate 102 H 06/08/25 15:00 Respiratory Rate 16 06/08/25 15:00 Pulse Oximetry 100 06/08/25 15:00 Oxygen Delivery Room Air 06/08/25 15:00 Medical Decision Making MDM Narrative Medical decision making narrative: POST ROTATOR CUFF SURGERY PAIN AND REDNESS AT THE SURGICAL SITE FEW DAYS AGO PHYSICAL EXAMINATION SHOWING SOME WARMTH, ERYTHEMATOUS CHANGES AROUND THE SURGICAL SCAR, WITHOUT ANY DISCHARGE OR LIMITATION OF MOVEMENT POSTOP SURGICAL WOUND INFECTION IS MY CONCERN, CELLULITIS. PATIENT RECEIVED 1 G OF ANCEF IM, DISCHARGED ON KEFLEX 500 MG Q.[address] SAMPSON WHO RECOMMEND NO IMAGINGS OR ANY BLOOD WORKUP AT THIS TIME Vital Signs Vital Signs: Vital Signs Temperature 36.8 C 06/08/25 15:00 Pulse Rate 102 H 06/08/25 15:00 Respiratory Rate 16 06/08/25 15:00 Pulse Oximetry 100 06/08/25 15:00 Oxygen Delivery Room Air 06/08/25 15:00 Temperature 36.8 C 06/08/25 15:00 Pulse Rate 102 H 06/08/25 15:00 Respiratory Rate 16 06/08/25 15:00 Pulse Oximetry 100 06/08/25 15:00 Oxygen Delivery Room Air 06/08/25 15:00 Critical Care Time Critical Care Time Critical Care Time: No Discharge Plan Discharge Clinical Impression: Postoperative wound infection Patient Disposition: Home Condition: Stable Instructions: Antibiotic Form, Surgical Site Infections (ED) Additional Instructions: Return if symptoms are worsening , call dr seaman for appointment, take Tylenol as as needed for aches and pain, continue home medications. Patient Language: Spanish Prescriptions: New cephalexin 500 mg tablet 500 mg PO Q6H 7 Days Qty: 28 0RF No Action atomoxetine 40 mg capsule 40 mg PO DAILY Patient Comments: takes in evening topiramate 50 mg tablet 50 mg PO DAILY Patient Comments: takes for headaches estradiol 1 mg tablet 1 mg PO DAILY Patient Comments: takes in evening levocetirizine [Xyzal] 5 mg tablet 5 mg PO DAILY bupropion HCl 300 mg tablet extended release 24 hr 300 mg PO QAM alprazolam 0.5 mg tablet 0.5 mg PO QHS PRN (Reason: Anxiety) zolpidem 10 mg tablet 10 mg PO DAILY ferrous sulfate [FeroSul] 325 mg (65 mg iron) tablet 325 mg PO DAILY 90 Days Qty: 90 1RF Patient Comments: takes in evening SlowMag Mg Calm-Sleep 1-71.5 mg tablet,delayed release (DR/EC) 1 tablet PO HS fluticasone propionate 50 mcg/actuation spray,suspension 1 spray intranasal BID Rx Instructions: administer into each nostril ondansetron 4 mg tablet,disintegrating See Rx Instructions .ROUTE .COMPLEX Qty: 60 0RF Dose Instruction: DISSOLVE 1 TABLET ON THE TONGUE EVERY 6 HOURS NEEDED FOR NAUSEA OR VOMITING Rx Instructions: DISSOLVE 1 TABLET ON THE TONGUE EVERY 6 HOURS NEEDED FOR NAUSEA OR VOMITING tramadol 50 mg tablet 50 mg PO Q8H PRN (Reason: pain) Qty: 60 0RF oxycodone-acetaminophen [Percocet] 5-325 mg tablet 1 tablet PO Q6H PRN (Reason: pain) Qty: 40 0RF albuterol sulfate [ProAir HFA] 90 mcg/actuation HFA aerosol inhaler 1 inh INHALATION Q4H PRN (Reason: shortness of breath or wheezing) Qty: 6.7 3RF rosuvastatin 10 mg tablet 10 mg PO DAILY Qty: 90 3RF Patient Comments: takes in evening scopolamine base 1 mg over 3 days patch 3 day 1 patch transdermal Q3D PRN (Reason: nausea) Qty: 4 0RF Rx Instructions: Apply 1 patch the night before surgical procedure. chlorhexidine gluconate [Hibiclens] 4 % liquid 1 applic topical ONCE Qty: 237 0RF Rx Instructions: Cleanse operative extremity, in shower, every day for 1 week prior to surgical procedure. clindamycin phosphate 1 % gel 1 applic topical DAILY Qty: 30 0RF Rx Instructions: Apply to operative shoulder daily for 2 weeks prior to surgery. benzoyl peroxide 5 % gel 1 applic topical DAILY Qty: 42.5 0RF Rx Instructions: Apply to operative shoulder daily for 2 weeks prior to surgery. omeprazole 40 mg capsule,delayed release(DR/EC) 40 mg PO DAILY 90 Days Qty: 90 3RF Patient Comments: takes in evening Follow-up/Referrals: Napoleon Perez MD [Physician] - 06/10/25 Kendall Wayne MD [Primary Care Provider] -
[2025-06-08 15:00] VITALS: PULSE 102; RESP 16; TEMP 36.8; O2SAT 100
--- OUTSIDE RECORDS SUMMARY | 2025-06-08 15:36 | XMS_ITS | Encounter Summary ---
Author Organization [facility] Address [address] [place] [address] Care Team Providers Care Appeals Specialist Name Role Phone Kendall Wayne MD Primary Care Provider [phone] Encounter Details Date Type Department Care Team (Late st Contact Info) Description 11/24/2022 Telephone [facility] [address] [place] [address] Sosa Keita, RN Social History Tobacco Use Types Packs/Day Years Used Date Smoking Tobacco: Never Smokeless Tobacco: Never Alcohol Use Standard Drinks/Week Comments Yes 0 (1 standard drink = 0.6 oz pur e alcohol) rare Comments No Sex and Gender Information Value Date Recorded Sex Assigned at Not on file Legal Sex Female 4:35 AM SILK HANGER Gender Identity Not on file Sexual Orientation Not on file COVID-19 Exposure Response Date Recorded In the last 10 days, have yo u been in contact with someone who was confirmed or suspected to have Coronavirus/COVID-19? No / Unsure 11/17/2022 6:33 AM SILK HANGER documented as of this encounter Miscellaneous Notes [...] appointment with an arrival time of 0630. HANGER documented in this encounter Plan of Treatment Not on file documented as of this encounter Visit Diagnoses Not on filedocumented in this encounter Care Teams Appeals Specialist Relationship Specialty Start Date End Date Kendall Wayne MD [address] [place] [address] PCP - General Family Practice 06/08/21 documented as of this encounter
--- OUTSIDE RECORDS SUMMARY | 2025-06-08 15:36 | XMS_ITS | Clinical Summary ---
Author Organization [facility] Address [address] [place] [address] Care Team Providers Care Ripening Room Attendant Name Role Phone Unavailable Primary Care Provider [...]
--- OUTSIDE RECORDS SUMMARY | 2025-06-08 15:37 | XMS_ITS | Clinical Summary ---
Author Organization [facility] Address [address] [place] [address] Care Team Providers Care Health Evaluator Name Role Phone Kendall Wayne MD Primary Care Provider [phone] [facility] and Associated Physician Practices is amultiple site organization consisting of ambulatory clinics and hospital sitesin [place] and [place]. This disclosure is being madepursuant to the Care Everywhere program and may not contain all information available regarding this patient. Last updated 18.[facility] Allergies Active Allergy Reactions Criticality Noted Date Comments Amoxicillin Nausea and/or Vomiting 07/15/2016 Penicillins GI Discomfort 04/24/2020 Medications * Be aware that medications may not be up to date on this document. Alwaysverify current medications with the patient. 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 [id number] [place] [address] ANTHEM ANTHEM Care Teams Health Evaluator Relationship Specialty Start Date End Date Kendall Wayne MD [address] [place] [address] PCP - General 09/21/21
--- OUTSIDE RECORDS SUMMARY | 2025-06-08 15:37 | XMS_ITS | Clinical Summary ---
Author Organization [facility] [place] Address [address] [place] [address] Care Team Providers Care Fashion Director Party Plan Sales Name Role Phone Kendall Wayne MD Primary Care Provider [phone] Allergies Active Allergy Reactions Criticality Noted Date Comments Mold Extracts Unknown 05/09/2012 Penicillins Diarrhea,Nausea and Vomiting Low 2015 Unclassified Drug Unknown 05/09/2012 dust Medications loratadine (CLARITIN) 10 mg tablet Take 10 mg by mouth daily. 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 Active fluticasone (FLONASE) 50 mcg/spray [place], SuspensionIndic ations:Nasal congestion Administer 2 Sprays in [...] on file Legal Sex Female 4:35 AM COPY COORDINATOR Gender Identity Not on file Sexual Orientation Not on file Last Filed Vital Signs Vital Sign Reading Time Taken Comments Blood Pressure 124/84 11/28/2022 8:06 AM COPY COORDINATOR Pulse 87 11/28/2022 8:06 AM COPY COORDINATOR Temperature 36.9 C (98.5 F) 04/20/2015 9:04 AM CDT Respiratory Rate 18 11/28/2022 8:06 AM COPY COORDINATOR Oxygen Saturation 100% 11/28/2022 8:06 AM COPY COORDINATOR Inhaled Oxygen Concentration - - Weight 75.2 kg (165 lb 12.8 oz) 10/19/2022 7:00 AM COPY COORDINATOR Height 172.7 cm (5' 8) 09/15/2021 2:00 PM COPY COORDINATOR Body Mass Index 25.21 09/15/2021 2:00 PM COPY COORDINATOR Plan of Treatment Health Maintenance Due Date [...] INFLUENZA VACCINE (#1) 2025 07/24/2015 Insurance [facility] BLUE ACCESS CHOICE Care Teams Fashion Director Party Plan Sales Relationship Specialty Start Date End Date Kendall Wayne MD [address] [place] [address] PCP - General Family Practice 06/08/21
[2025-06-08] MEDS: WATER, STERILE FOR INJECTION 10 ML VIAL XX (16:50)
== END 2025-06-08 16:45 | disposition home or self-care (01) ==
PROVIDERS: Emergency Provider Emergency Medicine; PCP Family Medicine
DX: T81.41XA Infection following a procedure, superficial incisional surgical site, initial encounter (principal); L08.9 Local infection of the skin and subcutaneous tissue, unspecified; F41.8 Other specified anxiety disorders; G47.33 Obstructive sleep apnea (adult) (pediatric); K21.9 Gastro-esophageal reflux disease without esophagitis; J45.909 Unspecified asthma, uncomplicated; Z87.891 Personal history of nicotine dependence
CPT/HCPCS: 96372; 99283; J0690

== ENCOUNTER 2025-06-16 10:25 | Outpatient (CLI) | payer BC, SELFPAY ==
--- OUTSIDE RECORDS SUMMARY | 2025-06-16 11:28 | XMS_ITS | Clinical Summary ---
Author Organization [facility] Address [address] [place] [address] Care Team Providers Care Land Surveying Manager Name Role Phone Kendall Wayne MD Primary Care Provider [phone] Source Comments [facility] and Associated Physician Practices is amultiple site organization consisting of ambulatory clinics and hospital sitesin [place], [place], [place] and [place]. This disclosure is being madepursuant to the Care Everywhere program and may not contain all information available regarding this patient. Last updated 18.[facility] Allergies Active Allergy Reactions Criticality Noted Date Comments Amoxicillin Nausea and/or Vomiting 07/15/2016 Penicillins GI Discomfort 04/24/2020 Medications * Be aware that medications may not be up to date on this document. Alwaysverify current medications with the patient. 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
--- OUTSIDE RECORDS SUMMARY | 2025-06-16 11:28 | XMS_ITS | Clinical Summary ---
Author Organization [facility] [place] Address [address] [place] [address] Care Team Providers Care Special Librarian Name Role Phone Kendall Wayne MD Primary Care Provider [phone] Allergies Active Allergy Reactions Criticality Noted Date Comments Mold Extracts Unknown 05/09/2012 Penicillins Diarrhea,Nausea and Vomiting Low 2015 Unclassified Drug Unknown 05/09/2012 dust Medications loratadine (CLARITIN) 10 mg tablet Take 10 mg by mouth daily. Active buPROPion HCl (WELLBUTRIN XL) 150 mg Extended Release 24 hour tablet Take 150 mg by mouth daily director of individual giving. Active fluticasone (FLONASE) 50 mcg/spray [place], SuspensionIndic ations:Nasal congestion Administer 2 Sprays in [...] on file Legal Sex Female 4:35 AM METALIZER Gender Identity Not on file Sexual Orientation Not on file Last Filed Vital Signs Vital Sign Reading Time Taken Comments Blood Pressure 124/84 11/28/2022 8:06 AM METALIZER Pulse 87 11/28/2022 8:06 AM METALIZER Temperature 36.9 C (98.5 F) 04/20/2015 9:04 AM CDT Respiratory Rate 18 11/28/2022 8:06 AM METALIZER Oxygen Saturation 100% 11/28/2022 8:06 AM METALIZER Inhaled Oxygen Concentration - - Weight 75.2 kg (165 lb 12.8 oz) 10/19/2022 7:00 AM METALIZER Height 172.7 cm (5' 8) 09/15/2021 2:00 PM METALIZER Body Mass Index 25.21 09/15/2021 2:00 PM METALIZER Plan of Treatment Health Maintenance Due Date [...] 2018 INFLUENZA VACCINE (#1) 2025 07/24/2015 Insurance [facility] BLUE ACCESS CHOICE Care Teams Special Librarian Relationship Specialty Start Date End Date Kendall Wayne MD [address] [place] [address] PCP - General Family Practice 06/08/21
--- OUTSIDE RECORDS SUMMARY | 2025-06-16 11:28 | XMS_ITS | Encounter Summary ---
Author Organization [email or web address] Address [address] [place] [address] Care Team Providers Care Web Communications Specialist Name Role Phone Kendall Wayne MD Primary Care Provider [phone] Encounter Details Date Type Department Care Team (Late st Contact Info) Description 11/24/2022 Telephone [facility] [address] [place] [address] Sosa Keita, RN Social History Tobacco Use Types Packs/Day Years Used Date Smoking Tobacco: Never Smokeless Tobacco: Never Alcohol Use Standard Drinks/Week Comments Yes 0 (1 standard drink = 0.6 oz pur e alcohol) rare Comments No Sex and Gender Information Value Date Recorded Sex Assigned at Not on file Legal Sex Female 4:35 AM DOMESTIC CLEANER Gender Identity Not on file Sexual Orientation Not on file COVID-19 Exposure Response Date Recorded In the last 10 days, have yo u been in contact with someone who was confirmed or suspected to have Coronavirus/COVID-19? No / Unsure 11/17/2022 6:33 AM DOMESTIC CLEANER documented as of this encounter Miscellaneous Notes [...] appointment with an arrival time of 0630. STIC CLEANER documented in this encounter Plan of Treatment Not on file documented as of this encounter Visit Diagnoses Not on filedocumented in this encounter Care Teams Web Communications Specialist Relationship Specialty Start Date End Date Kendall Wayne MD [address] [place] [address] PCP - General Family Practice 06/08/21 documented as of this encounter
== END 2025-06-16 10:26 | disposition home or self-care (01) ==
PROVIDERS: PCP Family Medicine; Visit Provider Orthopaedic Surgery
DX: A49.02 Methicillin resistant Staphylococcus aureus infection, unspecified site (principal)
CPT/HCPCS: 87070; 87075; 87081; 87205

== ENCOUNTER 2025-06-17 00:52 | Day surgery (SDC) | payer BC, SELFPAY ==
[2025-06-16 14:08] VITALS: BMI 24.1
--- NOTE | 2025-06-16 14:25 | SUR.PREOP ---
Report to the Outpatient Waiting Room, entrance under the green pavilion located off [facility], at time 1100 on date 06/17/25. Planned Procedure Time: 1300.? Time changes happen often and if your time is changed the preop area will call you the afternoon before. - You and your visitor will be asked to self-screen and do not enter if you have any COVID symptoms. Please call surgeon if you need to reschedule. - A mask is optional within the hospital at this time. Patients may have clear liquids (water, carbonated beverages, clear teas, apple juice) until 3 hours prior to surgery with a maximum of 20 ounces. - No food from midnight until time of surgery and no smoking, or chewing tobacco (or any form of nicotine). No chewing gum, candy or mints. - Infants may have breast milk until 4 hours before surgery, infant formula 6 hours prior to surgery. - Children will be allowed to drink immediately following surgery.? If applicable, please bring a bottle or sippy cup to assist with drinking. Juice, water, soda, and popsicles are readily available.? For infants on formula, please bring formula the day of surgery.? Pacifiers are allowed. Take only the following medications with a SIP of water on the morning of surgery: xanax, buproprion, inhailer if needed, tramadol if needed, zofran if needed DO NOT STOP ANY OF YOUR OTHER PRESCRIPTION MEDICATIONS PRIOR TO SURGERY EXCEPT THE FOLLOWING Hold all vitamins and supplements for 3 days per anesthesiologist. Medications to discontinue per physician N/A Date to take last dose N/A Please no make-up, nail finnish, hairspray, perfume, deodorant, or body powder the day of surgery.? No jewelry (including any body piercings) or valuables the day of surgery, leave them at home.? Please take a shower or bath the night before, or the morning of, surgery with an antibacterial soap.? Wear comfortable, loose fitting clothing.? Children are encouraged to wear pajamas. - Jewelry must be removed prior to entering the operating room.? Rings and piercings that are not removed may be cut off. - The hospital will not accept responsibility for valuables.? - Please leave all valuables, including medications, at home the day of surgery. If you are going home after surgery, a licensed ups driver must drive you home.? - NO public transportation without another adult if you receive anesthesia. - We recommend that an adult stay with you for 24 hours following discharge. - We also recommend that you do not drive, make important decision, drink alcoholic beverages, or take any drugs that were not prescribed by your health care provider for at least 24 hours after your discharge time. For Pediatric surgeries, we recommend two adults accompany the child home. Follow any additional instructions given to you from your surgeon. Telephone instructions given to ERVIN DAVIS and asked if any additional questions and then verbalized understanding. Patient advised to call surgeon office or pre surgery nurse liaison [phone] if any additional questions.
[2025-06-17] VITALS (9 sets, daily range): BP systolic 93–123; BP diastolic 49–80; PULSE 69–100; RESP 11–20; TEMP 36.1–37; O2SAT 100; BMI 24.4
--- OUTSIDE RECORDS SUMMARY | 2025-06-17 00:55 | XMS_ITS | Clinical Summary ---
Author Organization [facility] Address [address] [place] [address] Care Team Providers Care Electric Arc Furnace Operator Name Role Phone Unavailable Primary Care Provider [...]
--- OUTSIDE RECORDS SUMMARY | 2025-06-17 00:55 | XMS_ITS | Clinical Summary ---
Author Organization [facility] [place] Address [address] [place] [address] Care Team Providers Care Physical Geographer Name Role Phone Kendall Wayne MD Primary Care Provider [phone] Allergies Active Allergy Reactions Criticality Noted Date Comments Mold Extracts Unknown 05/09/2012 Penicillins Diarrhea,Nausea and Vomiting Low 2015 Unclassified Drug Unknown 05/09/2012 dust Medications loratadine (CLARITIN) 10 mg tablet Take 10 mg by mouth daily. Active buPROPion HCl (WELLBUTRIN XL) 150 mg Extended Release 24 hour tablet Take 150 mg by mouth daily manager of marketing. Active fluticasone (FLONASE) 50 mcg/spray [place], SuspensionIndic ations:Nasal congestion Administer 2 Sprays in [...] on file Legal Sex Female 4:35 AM CATCHER HELPER Gender Identity Not on file Sexual Orientation Not on file Last Filed Vital Signs Vital Sign Reading Time Taken Comments Blood Pressure 124/84 11/28/2022 8:06 AM CATCHER HELPER Pulse 87 11/28/2022 8:06 AM CATCHER HELPER Temperature 36.9 C (98.5 F) 04/20/2015 9:04 AM CDT Respiratory Rate 18 11/28/2022 8:06 AM CATCHER HELPER Oxygen Saturation 100% 11/28/2022 8:06 AM CATCHER HELPER Inhaled Oxygen Concentration - - Weight 75.2 kg (165 lb 12.8 oz) 10/19/2022 7:00 AM CATCHER HELPER Height 172.7 cm (5' 8) 09/15/2021 2:00 PM CATCHER HELPER Body Mass Index 25.21 09/15/2021 2:00 PM CATCHER HELPER Plan of Treatment Health Maintenance Due Date [...] 2018 INFLUENZA VACCINE (#1) 2025 07/24/2015 Insurance [facility] BLUE ACCESS CHOICE Care Teams Physical Geographer Relationship Specialty Start Date End Date Kendall Wayne MD [address] [place] [address] PCP - General Family Practice 06/08/21
--- OUTSIDE RECORDS SUMMARY | 2025-06-17 00:55 | XMS_ITS | Patient Health Record ---
Author Organization [facility] ([address]) Address [address] [place] [address] Care Team Providers Care Cutter Inspector Name Role Phone Rosana PEOPLES, Kendall Primary Care Provider Unavaila Caty Allison Unavailable [phone] Dr. Albina Lopez Unavailable Unavailable Bimal Gunderson Unavailable [phone] Allergies Allergen (clinical drug ingredient) Drug/Non Drug [...] review and pick correct strength-formula tion from [employer] options. If intended option is not shown, discontinue and re-order from Quick Search* Active Vitamin D2 1.25 MG 1 CAP(S) ORALLY ONCE A WEEK *Please review and pick correct strength-formula tion from [employer] options. If intended option is not shown, [...] review and pick correct strength-formula tion from [employer] options. If intended option is not shown, [...] Route Administration Date Status Comme nts NOC Pneumovax 23 IM Intramuscular 06/15/2021 Administered NOC Pneumovax 23 IM Intramuscular 08/15/2024 Administered NOC Tdap Unknown 09/24/2018 Administered Portal Information [employer] Quadrivalent Unknown 07/07/2020 Administered Portal Information [...] Status Risk Notes Problem Vitamin D deficiency (98354877) Vitamin D deficiency, unspecified (E55.9) Active confirmed Problem Manic disorder, sing le episode (862328206) Manic episode, unspecified (F30.9) Active confirmed Problem Anxiety disorder (818945330) Anxiety disorder, unspecified (F41.9) Active confirmed Problem Chronic allergic conjunctivitis (45443587) Other chronic allergic conjunctivitis (H10.45) Active confirmed Problem Allergic rhinitis caused by pollen (disorder) (32373238) Allergic rhinitis due to pollen (J30.1) Active confirmed Problem Allergic rhinitis caused by animal hair and dander (623328510754743) Allergic rhinitis due to animal (cat) (dog) hair and dander (J30.81) Active confirmed Problem Allergic rhinitis (45141738) Other allergic rhinitis (J30.89) Active confirmed Problem Uncomplicated modera te persistent asthma (251473006) Moderate persistent asthma, uncomplicated (J45.40) Active confirmed Problem Gastro-esophageal reflux disease without esophagitis (444528947) Gastro-esophagea l reflux disease without esophagitis (K21.9) Active confirmed Problem Gastric ulcer (648006569) Gastric ulcer, unspecified as acute or chronic, without hemorrhage or perforation (K25.9) Active confirmed Problem Allergic rhinitis caused by pollen (disorder) (32634702) Allergic rhinitis due to pollen (J30.1) Active confirmed Problem Allergic rhinitis caused by animal hair and dander (655177245588499) Allergic rhinitis due to animal (cat) (dog) hair and dander (J30.81) Active confirmed Problem Allergic rhinitis (70019738) Other allergic rhinitis (J30.89) Active confirmed Problem Chronic allergic conjunctivitis (26198031) Other chronic allergic conjunctivitis (H10.45) Active confirmed Problem Chronic sinusitis (36454395) Other chronic sinusitis (J32.8) Active confirmed Problem Pure hypercholesterolemia (436035300) Pure hypercholesterol emia, unspecified (E78.00) Active confirmed Problem Irritable bowel syndrome characterized by constipation (810597578) Irritable bowel syndrome with constipation (K58.1) Active confirmed Encounters Encounter Location Date Provider Diagnosis [facility] [address]22 [facility] [address] [address] 05/28/2025 Caty Hanna Allergic rhinitis du e to pollen J30.1 ; Allergic rhinitis due to animal (cat) (dog) hair and dander J30.81 ; Other allergic rhinitis J30.89 and Other chronic allergic conjunctivitis H10.45 [facility] [address] [place] [address] [address] 05/06/2025 Caty Hanna Allergic rhinitis du e to pollen J30.1 ; Allergic rhinitis due to animal (cat) (dog) hair and dander J30.81 ; Other allergic rhinitis J30.89 and Other chronic allergic conjunctivitis H10.45 [facility] [address] [facility] [address] [address] 04/08/2025 Caty Hanna Allergic rhinitis du e to pollen J30.1 ; Allergic rhinitis due to animal (cat) (dog) hair and dander J30.81 ; Other allergic rhinitis J30.89 and Other chronic allergic conjunctivitis H10.45 [facility] [address] [place], [place] [address] [address] [place] [phone] 03/04/2025 Caty Hanna Allergic rhinitis du e to pollen J30.1 ; Allergic rhinitis due to animal (cat) (dog) hair and dander J30.81 ; Other allergic rhinitis J30.89 and Other chronic allergic conjunctivitis H10.45 [facility] [address] [place], [place] [address] [address] [place] [address] 01/28/2025 Caty Hanna Allergic rhinitis du e to pollen J30.1 ; Allergic rhinitis due to animal (cat) (dog) hair and dander J30.81 ; Other allergic rhinitis J30.89 and Other chronic allergic conjunctivitis H10.45 [facility] [address] [place], [place] [address] [address] [place] [address] 12/30/2024 Caty Hanna Allergic rhinitis du e to pollen J30.1 ; Allergic rhinitis due to animal (cat) (dog) hair and dander J30.81 ; Other allergic rhinitis J30.89 and Other chronic allergic conjunctivitis H10.45 [facility] [address] [place], [place] [address] [address] [place] [phone] 12/03/2024 Caty Hanna Allergic rhinitis du e to pollen J30.1 ; Allergic rhinitis due to animal (cat) (dog) hair and dander J30.81 ; Other allergic rhinitis J30.89 and Other chronic allergic conjunctivitis H10.45 [facility] [address] [place] [phone] 11/20/2024 Caty Hanna Allergic rhinitis du e to pollen J30.1 ; Allergic rhinitis due to animal (cat) (dog) hair and dander J30.81 ; Other allergic rhinitis J30.89 and Other chronic allergic conjunctivitis H10.45 [facility] [address] [place], [place] [address] [address] [place] [address] 11/05/2024 Caty Hanna Allergic rhinitis du e to pollen J30.1 ; Allergic rhinitis due to animal (cat) (dog) hair and dander J30.81 ; Other allergic rhinitis J30.89 and Other chronic allergic conjunctivitis H10.45 [facility] [address] [place], [place] [address] [address] [place] [address] 10/21/2024 Caty Hanna Allergic rhinitis du e to pollen J30.1 ; Allergic rhinitis due to animal (cat) (dog) hair and dander J30.81 ; Other allergic rhinitis J30.89 and Other chronic allergic conjunctivitis H10.45 [facility] [address] [place], [place] [address] [address] [place] [address] 10/09/2024 Caty Hanna Allergic rhinitis du e to pollen J30.1 ; Allergic rhinitis due to animal (cat) (dog) hair and dander J30.81 ; Other allergic rhinitis J30.89 and Other chronic allergic conjunctivitis H10.45 [facility] [address] [place], [place] [address] [address] [place] [phone] 09/18/2024 Caty Hanna Allergic rhinitis du e to pollen J30.1 ; Allergic rhinitis due to animal (cat) (dog) hair and dander J30.81 ; Other allergic rhinitis J30.89 and Other chronic allergic conjunctivitis H10.45 [facility] [address] [place], [place] [address] [address] [place] [phone] 09/12/2024 Caty Hanna Allergic rhinitis du e to pollen J30.1 ; Allergic rhinitis due to animal (cat) (dog) hair and dander J30.81 ; Other allergic rhinitis J30.89 and Other chronic allergic conjunctivitis H10.45 [facility] [address] [place], [place] [address] [address] [place] [phone] 08/08/2024 Caty Hanna Allergic rhinitis du e to pollen J30.1 ; Allergic rhinitis due to animal (cat) (dog) hair and dander J30.81 ; Other allergic rhinitis J30.89 and Other chronic allergic conjunctivitis H10.45 [facility] [address] [place], [place] [address] [address] [place] [address] 07/24/2024 Caty Hanna Allergic rhinitis du e to pollen J30.1 ; Allergic rhinitis due to animal (cat) (dog) hair and dander J30.81 ; Other allergic rhinitis J30.89 and Other chronic allergic conjunctivitis H10.45 [facility] [address] [place] [address] 07/17/2024 Caty Hanna Allergic rhinitis du e to pollen J30.1 ; Allergic rhinitis due to animal (cat) (dog) hair and dander J30.81 ; Other allergic rhinitis J30.89 and Other chronic allergic conjunctivitis H10.[address] [address] 07/02/2024 Caty Hanna Allergic rhinitis du e to pollen J30.1 ; Allergic rhinitis due to animal (cat) (dog) hair and dander J30.81 ; Other allergic rhinitis J30.89 and Other chronic allergic conjunctivitis H10.[address] [address] 06/18/2024 Caty Hanna Allergic rhinitis du e to pollen J30.1 ; Allergic rhinitis due to animal (cat) (dog) hair and dander J30.81 ; Other allergic rhinitis J30.89 and Other chronic allergic conjunctivitis H10.[address] [address] 08/15/2024 Caty Hanna Encounter for immunization Z23 ; Encounter for antibody response examination Z01.84 and Other chronic sinusitis J32.[address] [address] 12/05/2024 [address] [address] 07/25/2024 Caty Hanna Assessments Encounter Date Diagnosis (ICD Code) Assessment Notes Treatment Notes Treatment Clinical Notes Section Notes 09/12/2024 Allergic rhinitis due to pollen (ICD-10 - J30.1) 12/30/2024 Allergic rhinitis due to pollen (ICD-10 - J30.1) 01/28/2025 Allergic rhinitis due to pollen (ICD-10 - J30.1) 05/06/2025 Allergic rhinitis due to pollen (ICD-10 - J30.1) 05/28/2025 Allergic rhinitis due to pollen (ICD-10 - J30.1) 04/08/2025 Allergic rhinitis due to pollen (ICD-10 - J30.1) 03/04/2025 Allergic rhinitis due to pollen (ICD-10 - J30.1) 10/21/2024 Allergic rhinitis due to pollen (ICD-10 - J30.1) 09/18/2024 Allergic rhinitis due to pollen (ICD-10 - J30.1) 08/15/2024 Encounter for immunization (ICD-10 - Z23) 08/08/2024 Allergic rhinitis due to pollen (ICD-10 - J30.1) 07/24/2024 Allergic rhinitis due to pollen (ICD-10 - J30.1) 07/17/2024 Allergic rhinitis due to pollen (ICD-10 - J30.1) 07/02/2024 Allergic rhinitis due to pollen (ICD-10 - J30.1) 06/18/2024 Allergic rhinitis due to pollen (ICD-10 - J30.1) 08/15/2024 Encounter for antibody response examination (ICD-10 - Z01.84) 12/03/2024 Allergic rhinitis due to pollen (ICD-10 - J30.1) 11/20/2024 Allergic rhinitis due to pollen (ICD-10 - J30.1) 11/05/2024 Allergic rhinitis due to pollen (ICD-10 - J30.1) 10/09/2024 Allergic rhinitis due to pollen (ICD-10 - J30.1) 10/09/2024 Allergic rhinitis due to animal (cat) [...] 08/15/2024 Other chronic sinusitis (ICD-10 - J32.8) 09/18/2024 Allergic rhinitis due to animal (cat) (dog) hair and dander (ICD-10 - J30.81) 10/21/2024 Allergic rhinitis due to animal (cat) (dog) hair and dander (ICD-10 - J30.81) 03/04/2025 Allergic rhinitis due to animal (cat) (dog) hair and dander (ICD-10 - J30.81) 04/08/2025 Allergic rhinitis due to animal (cat) (dog) hair and dander (ICD-10 - J30.81) 05/28/2025 Allergic rhinitis due to animal (cat) [...] hair and dander (ICD-10 - J30.81) 09/12/2024 Other allergic rhinitis (ICD-10 - J30.89) 12/30/2024 Other allergic rhinitis (ICD-10 - J30.89) 01/28/2025 Other allergic rhinitis (ICD-10 - J30.89) 05/06/2025 Other allergic rhinitis (ICD-10 - J30.89) 05/28/2025 Other allergic rhinitis (ICD-10 - J30.89) 04/08/2025 Other allergic rhinitis (ICD-10 - J30.89) 03/04/2025 Other allergic rhinitis (ICD-10 - J30.89) 10/21/2024 Other allergic rhinitis (ICD-10 - J30.89) 09/18/2024 Other allergic rhinitis (ICD-10 - J30.89) 08/08/2024 Other allergic rhinitis (ICD-10 - J30.89) 07/24/2024 Other allergic rhinitis (ICD-10 - J30.89) 07/17/2024 Other allergic rhinitis (ICD-10 - J30.89) 07/02/2024 Other allergic rhinitis (ICD-10 - J30.89) 06/18/2024 Other allergic rhinitis (ICD-10 - J30.89) 12/03/2024 Other allergic rhinitis (ICD-10 - J30.89) 11/20/2024 Other allergic rhinitis (ICD-10 - J30.89) 11/05/2024 Other allergic rhinitis (ICD-10 - J30.89) 10/09/2024 Other allergic rhinitis (ICD-10 - J30.89) 10/09/2024 Other chronic allergic conjunctivitis (ICD-10 - [...] Other chronic allergic conjunctivitis (ICD-10 - H10.45) 05/28/2025 Other chronic allergic conjunctivitis (ICD-10 - [...] SERO TYPES) 08/21/2023 TETANUS ANTITOXOID ANTIBODY (EIA) 2023 TETANUS ANTITOXOID ANTIBODY (EIA) 2022 TETANUS ANTITOXOID ANTIBODY (EIA) 2022 DIPHTHERIA ANTITOXOID ANTIBODY DIPHTHERIA ANTITOXOID ANTIBODY 3 IMMUNOGLOBULINS G/A/M 08/21/2023 IMMUNOGLOBULINS G/A/M 08/23/2023 VITAMIN D, 25-OH, TOTAL, [place] 08/21/2023 VITAMIN D, 25-OH, TOTAL, [place] 08/23/2023 HAEMOPHILUS INFLUENZAE B ANTIBODY, IGG 1 HAEMOPHILUS INFLUENZAE B ANTIBODY, IGG 1 10/23/2022 HAEMOPHILUS INFLUENZAE B ANTIBODY, IGG 0 12/25/2023 -Pneumococcal Ab (23 Serotype) 3 Insurance Providers Payer Name Payer Address Payer Phone Subscriber Number Group Number Insured Name Patient Relationship to Insured Coverage Start Date Coverage End Date [employer] [address] [place] [address] [id number] Barbara Kaur Self - patient is the insured Medical (General) History Medical History History ICD [...]
--- OUTSIDE RECORDS SUMMARY | 2025-06-17 00:55 | XMS_ITS | Encounter Summary ---
Author Organization [employer] Address [address] [place] [address] Care Team Providers Care Gyroscope Technician Name Role Phone Kendall Wayne MD Primary Care Provider [phone] Encounter Details Date Type Department Care Team (Late st Contact Info) Description 11/24/2022 Telephone [employer] [facility] [address] [place] [address] Sosa Keita, RN Social History Tobacco Use Types Packs/Day Years Used Date Smoking Tobacco: Never Smokeless Tobacco: Never Alcohol Use Standard Drinks/Week Comments Yes 0 (1 standard drink = 0.6 oz pur e alcohol) rare Comments No Sex and Gender Information Value Date Recorded Sex Assigned at Not on file Legal Sex Female 4:35 AM VISUAL DISPLAY ASSOCIATE Gender Identity Not on file Sexual Orientation Not on file COVID-19 Exposure Response Date Recorded In the last 10 days, have yo u been in contact with someone who was confirmed or suspected to have Coronavirus/COVID-19? No / Unsure 11/17/2022 6:33 AM VISUAL DISPLAY ASSOCIATE documented as of this encounter Miscellaneous Notes [...] appointment with an arrival time of 0630. AL DISPLAY ASSOCIATE documented in this encounter Plan of Treatment Not on file documented as of this encounter Visit Diagnoses Not on filedocumented in this encounter Care Teams Gyroscope Technician Relationship Specialty Start Date End Date Kendall Wayne MD [address] [place] [place] [address] PCP - General Family Practice 06/08/21 documented as of this encounter
--- OUTSIDE RECORDS SUMMARY | 2025-06-17 00:55 | XMS_ITS | Clinical Summary ---
Author Organization [facility] Address [address] [place] [address] Care Team Providers Care Compensation Coordinator Name Role Phone Kendall Wayne MD Primary Care Provider [phone] Source Comments [facility] and Associated [facility] Practices is amultiple site organization consisting of ambulatory clinics and hospital sitesin [place], [place], [place] and [place]. This disclosure is being madepursuant to the Care Everywhere program and may not contain all information available regarding this patient. Last updated 18.[facility] Allergies Active Allergy Reactions Criticality Noted Date Comments Amoxicillin Nausea and/or Vomiting 07/15/2016 Penicillins GI Discomfort 04/24/2020 Medications * Be aware that medications may not be up to date on this document. Alwaysverify current medications with the patient. fluticasone propionate (FLONASE) 50 MCG/ACT nasal spray Ackerly 2 Sprays into each nostril once daily [...] on file Legal Sex Female 6:27 AM EMERGENCY MANAGEMENT SYSTEM DIRECTOR Gender Identity Not on file Sexual Orientation [...] topic Insurance ANTHEM ANTHEM ANTHEM Care Teams Compensation Coordinator Relationship Specialty Start Date End Date Kendall Wayne MD [address] [place] [address] PCP - General 09/21/21
--- NOTE | 2025-06-17 08:58 | WPDANESEPPF ---
Anes - Initial Pre Proc Eval Procedure: Operation Date: 06/17/25 13:00 Proposed Procedures p Incision and Drainage of Right Shoulder - Napoleon Perez MD Date/Time: 06/17/25 08:58 Surgeon: Napoleon Perez MD Pre Op Diagnosis: right shoulder wound Patient Data Age: 55 Gender: F Height: 1.73 m Weight: 72.12 kg Allergies Allergy/AdvReac Type Severity Reaction Status Date / Time mold Allergy Mild Congested Verified 06/16/25 14:34 Penicillins AdvReac Mild Vomiting Verified 06/16/25 14:34 amoxicillin (From Augmentin) AdvReac Vomiting Verified 06/16/25 14:34 clavulanic acid (From AdvReac Vomiting Verified 06/16/25 14:34 Augmentin) Home Medications ?Medication ?Instructions ?Recorded ?Confirmed ?Type estradiol 1 mg tablet 1 mg PO DAILY 02/04/21 06/16/25 History albuterol sulfate 90 mcg/actuation 1 inh inhalation Q4H PRN shortness 09/27/22 06/16/25 Rx aerosol inhaler (ProAir HFA) of breath or wheezing #6.7 grams alprazolam 0.5 mg tablet 0.5 mg PO QHS PRN Anxiety 11/07/22 06/17/25 History bupropion HCl 300 mg 24 hr tablet, 300 mg PO QAM 11/07/22 06/17/25 History extended release levocetirizine 5 mg tablet (Xyzal) 5 mg PO DAILY 11/07/22 06/16/25 History zolpidem 10 mg tablet 10 mg PO DAILY 11/07/22 06/16/25 History atomoxetine 40 mg capsule 40 mg PO DAILY 12/02/22 06/16/25 History topiramate 50 mg tablet 50 mg PO DAILY 05/22/23 06/16/25 History fluticasone propionate 50 1 spray intranasal BID 08/15/23 06/16/25 History mcg/actuation nasal spray,suspension rosuvastatin 10 mg tablet 10 mg PO DAILY #90 tabs 09/04/24 06/16/25 Rx ferrous sulfate 325 mg (65 mg 325 mg PO DAILY 3 months #90 tabs 10/21/24 06/16/25 Rx iron) tablet (FeroSul) melatonin 1 mg-magnesium citrate 1 tablet PO HS 10/21/24 06/16/25 History 71.5 mg tablet,delayed release (SlowMag Mg Calm-Sleep) omeprazole 40 mg capsule,delayed 40 mg PO DAILY 3 months #90 caps 05/14/25 06/17/25 Rx release tramadol 50 mg tablet 50 mg PO Q8H PRN pain #60 tabs 05/29/25 06/16/25 Rx ondansetron 4 mg disintegrating See Rx Instructions .Route 06/16/25 06/16/25 Rx tablet .COMPLEX NAUSEA #60 tabs Patient hx anesthesia problems: none Family hx anesthesia problems: none Results Review: All pre-operative results and documents have been reviewed as part of the pre-operative evaluation. [facility] Past Medical History Medical History Otitis media Influenza Epigastric pain Recurrent tonsillitis Palpitations Chest pain UTI (urinary tract infection) Depression with anxiety Obstructive sleep apnea Gas bloat syndrome Nausea Hyperinflation of lungs High cholesterol Irritable bowel syndrome with constipation GERD (gastroesophageal reflux disease) Hx of gastric ulcer Asthma Pain of radial side of wrist Left wrist injury Surgical History Surgical History History of lumpectomy of left breast H/O: hysterectomy Family History Family History Father Mother Diabetes mellitus Hypertension Obesity Neuropathy Depression Thyroid disorder Sibling Hyperlipidemia Depression Thyroid disorder Other Asthma Hypertension Depression Grandparent Lung cancer Bladder cancer Diabetes mellitus Hypertension Depression Heart disease Cerebrovascular accident Thyroid disorder Social History Social History Smoking status: Former smoker Second hand tobacco smoke exposure: No Alcohol intake: never Substance use: never Substance use type: does not use Lack of Transportation: No Lack of Food: Never True Current Housing: I Have Housing Concerned About Future Housing: No Difficulty Paying Gas/Electric Bills: No Difficulty Paying for Meds: No Currently Unemployed: No Education: Master's Degree or Higher Difficulty w/ Childcare or Family Care: No Living arrangements: with family Additional living arrangements comments: LIVES WITH [facility] [phone] Occupation/Education: occupation Additional occupation/education comments: -[employer] Gender identity (if verbalized by the patient): Female Spiritual care concerns: No Anes - Eval Final PreProcedure Day of Procedure 06/17/25 08:58 Patient weight: normal Heart: regular rate and rhythm Lungs: clear to auscultation and normal air movement Airway: Mallampati scale class II Neurological: alert and oriented Last oral intake: >/= 8 hours ASA classification: II Emergent: no Anesthetic plan: proceed Anesthesia type and monitoring: general LMA and standard monitoring Results Review: All pre-operative results and documents have been reviewed as part of the pre-operative evaluation. Informed Consent: The patient's anesthetic plan and its attendant risks and benefits were discussed with the patient/family/POA. Questions were solicited and answers provided to the satisfaction of the patient/family/POA.
--- NOTE | 2025-06-17 09:40 | WPDHPUPDATE1 ---
History and Physical Update Update Date/Time: 06/17/25 09:40 History and Physical has been reviewed, including an updated exam of the patient. There are NO changes in the patient's condition. Risks, benefits, and alternatives have been discussed and questions answered. Patient agrees to proceed with procedure.
[2025-06-17] MEDS: ACETAMINOPHEN 500 MG TABLET 1000 MG PO (11:30)
[2025-06-17] MEDS: SCOPOLAMINE 1 MG PATCH 1 PATCH TRANSDERM (11:39)
[2025-06-17] MEDS: KETOROLAC 15 MG/ML VIAL (*BKC) IV PUSH (12:45)
[2025-06-17] MEDS: ceFAZolin 2 GM in SODIUM CHLORIDE 0.9% IV 50 ML 100 ML IVPB (13:25)
[2025-06-17] MEDS: VANCOMYCIN HCL 1,000 MG in SODIUM CHLORIDE 0.9% IV 250 ML 250 MG IVPB (13:45)
[2025-06-17] MEDS: LACTATED RINGERS 1,000 ML 30 ML IV CONT (14:19)
--- NOTE | 2025-06-17 14:19 | W.PM.PROC2 ---
Procedure Note - Detailed Date of Procedure 06/17/25 Pre-op Diagnosis right shoulder wound infection Post-op Diagnosis Same Procedure Performed INCISION AND DRAINAGE WITH IRRIGATION AND DEBRIDEMENT RIGHT SHOULDER WOUND Surgeon Napoleon Perze MD Anesthesia General Description of Procedure THE RIGHT UPPER EXTREMITY WAS PREPPED AND RAPED STERILE. AN INCISION WAS MADE OVER THE OLD SCAR DOWN THRU THE SUB CUTANEOUS TISSUES. THE DELTOID FASCIA WAS IDENTIFIED. A MINI INCISION WAS MADE THRU THE DELTOID. AN ABSCESS FROM THE SUB ACROMIAL SPACE WAS OBSERVED. CULTURES WERE TAKEN. IV ANTIBIOTICS WERE GIVEN. THE ROTATOR CUFF WAS INTACT AND HEALING TO THE GREATER TUBEROSITY. PERMANENT SUTURES WERE REMOVED WITH A BLADE. THE WOUND WAS DEBRIDED WITH A RONGEUR DOWN TO THE LEVEL OF THE FASCIA AND BONE. DEVITALIZED TISSUE WAS EXCISED WITH A KNIFE AND RONGEUR UNTIL THERE WAS GOOD BLEEDING TISSUE.THE WOUND WAS IRRIGATED WITH MULTIPLE LITERS OF STERILE H202, BETADINE AND WATER. THE DELTOID WAS REPAIRED WITH 0 VYCRIL SUTURE. THE SKIN WAS APPROXIMATED WITH 3-0 PROLINE. STERILE DRESSING WAS PLACED. THE PATIENT WAS EXTUBATED Estimated Blood Loss 10 Packing No Complications No immediate complications Disposition PACU
[2025-06-17] MEDS: fentaNYL CITRATE INJ (*CRX) 100 MCG/2 ML VIAL 25 MCG IV PUSH ×4 (14:38→15:12)
[2025-06-17] MEDS: oxyCODONE HCL (*CRX) 5 MG TAB IR PO (15:44)
== END 2025-06-17 16:33 | disposition home or self-care (01) ==
PROVIDERS: PCP Family Medicine; Visit Provider Orthopaedic Surgery
PROC: (CPT 11044; principal; 2025-06-17 13:00)
DX: T81.42XA Infection following a procedure, deep incisional surgical site, initial encounter (principal); Y83.8 Other surgical procedures as the cause of abnormal reaction of the patient, or of later complication, without mention of misadventure at the time of the procedure; R00.2 Palpitations; F41.8 Other specified anxiety disorders; G47.33 Obstructive sleep apnea (adult) (pediatric); E78.00 Pure hypercholesterolemia, unspecified; K58.1 Irritable bowel syndrome with constipation; K21.9 Gastro-esophageal reflux disease without esophagitis; J45.909 Unspecified asthma, uncomplicated; Z79.51 Long term (current) use of inhaled steroids; Z79.891 Long term (current) use of opiate analgesic; Z98.890 Other specified postprocedural states; Z87.891 Personal history of nicotine dependence; Z87.11 Personal history of peptic ulcer disease; Z80.1 Family history of malignant neoplasm of trachea, bronchus and lung; Z80.52 Family history of malignant neoplasm of bladder; Z82.49 Family history of ischemic heart disease and other diseases of the circulatory system
CPT/HCPCS: 11044; 87070; 87075; 87205; J0690; A4565; A9270; J1885; J2003; J2250; J2405; J2704; J3010; J3373; J7030; J7050; J7120

== ENCOUNTER 2025-09-18 15:14 | Emergency (ER) | payer BC, SELFPAY ==
--- OUTSIDE RECORDS SUMMARY | 2025-08-27 11:30 | XMS_ITS ---
Author Organization [facility] [place] ([address]) Address [address] [place] [address] Care Team Providers Care Acct Exec Name Role Phone Rosana PEOPLES, Kendall Primary Care Provider Unavaila Caty Allison Unavailable [phone] Dr. Albina Lopez Unavailable Unavailable REASON FOR VISIT SCIT (Aeroallergen) Encounters Encounter Location Date Provider Diagnosis [facility] [address] [place] [address] 08/27/2025 Caty Hanna Plan Of Treatment Next Appt Details Provider Name:Caty sheppard, 10/08/2025 04:40:00 PM, [address] [email or web address] [facility], [address], [place], [address], Progress Notes * Barbara DAVISDOB: [birth year] (55 yo F)Acc No.[id number]:08/27/2025 SCIT-Aeroallergen Patient: Jasmyn BRANTLEYecca Provider: Bhanu Hanna MD :1970 A ge:55 Y S ex:Female Date:08/27/2025 Address:[address] [facility] Pcp:Kendall Wayne MD Subjective: * Chief Complaints: * 1 . SCIT (Aeroallergen). * Medical History: Objective: * Vitals: Assessment: Plan: * Treatment: * Billing Information: * Visit Code: * Procedure Codes: * Electronic signature of Seda Hanna MD on 09/18/2025 at 03:54 PM REELER OPERATOR Sign off status: Pending * Provider: Bhanu Hanna MD Date: 10/27/2024 Generated for Aditya veloz/Daria/Cristiano on: 11/18/2024 03:54 PM REELER OPERATOR
--- NOTE | ~2025-09-18 | XR_ITS ---
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 COMPARISON: No comparisons available. Findings: Clavicle fracture redemonstrated. No additional fracture or dislocation identified. Minimal degenerative changes. Soft tissues unremarkable. Impression: No acute fracture or malalignment. Reviewed, dictated and finalized at location P. DRILL OPERATOR Impression: No acute fracture or malalignment.
--- NOTE | ~2025-09-18 | XR_ITS ---
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 Findings: There is a nondisplaced fracture of the distal clavicle. No significant degenerative changes. Soft tissues unremarkable. Impression: Distal clavicle fracture Reviewed, dictated and finalized at location P. MAKER CUSTOM Impression: Distal clavicle fracture
[2025-09-18 15:27] VITALS: BP 113/59; PULSE 92; RESP 18; TEMP 37.2; O2SAT 100
--- OUTSIDE RECORDS SUMMARY | 2025-09-18 15:54 | XMS_ITS | Encounter Summary ---
Author Organization [facility] Address [address] [place] [address] Care Team Providers Care Delivery Driver Name Role Phone Kendall Wayne MD Primary Care Provider [phone] Encounter Details Date Type Department Care Team (Late st Contact Info) Description 11/24/2022 Telephone [facility] [address] [place] [address] Sosa Keita FNP [address] [facility] [address] [place] [address] Social History Tobacco Use Types Packs/Day Years Used Date Smoking Tobacco: Never Smokeless Tobacco: Never Alcohol Use Standard Drinks/Week Comments Yes 0 (1 standard drink = 0.6 oz pur e alcohol) rare Comments No Sex and Gender Information Value Date Recorded Sex Assigned at Not on file Legal Sex Female 4:35 AM DIRECTOR PATIENT FINANCIAL SERVICES Gender Identity Not on file Sexual Orientation Not on file COVID-19 Exposure Response Date Recorded In the last 10 days, have yo u been in contact with someone who was confirmed or suspected to have Coronavirus/COVID-19? No / Unsure 11/17/2022 6:33 AM DIRECTOR PATIENT FINANCIAL SERVICES documented as of this encounter Miscellaneous Notes [...] procedure would need to be postponed. Barbara Mortensenltz voiced understanding of the above and confirmed her appointment with an arrival time of 0630. CTOR PATIENT FINANCIAL SERVICES documented in this encounter Plan of Treatment Not on file documented as of this encounter Visit Diagnoses Not on filedocumented in this encounter Care Teams Delivery Driver Relationship Specialty Start Date End Date Kendall Wayne MD [address] [place] [address] PCP - General Family Practice 06/08/21 documented as of this encounter
--- OUTSIDE RECORDS SUMMARY | 2025-09-18 15:54 | XMS_ITS | Patient Health Record ---
Author Organization [facility] [place] ([address]) Address [address] [place] [address] Care Team Providers Care Farmer Cash Grain Name Role Phone Rosana PEOPLES, Kendall Primary Care Provider Unavaila Caty Allison Unavailable [phone] Dr. Albina Lopez Unavailable Unavailable Allergies Allergen (clinical drug ingredient) Drug/Non Drug Allergy documented on EMR Reaction Allergy Type Onset Date Status Penicillin stomach upset Drug Allergy Ac tive Reason For Referral No Information Medications Medication SIG (Take, Route, Frequency, Duration) Notes Start Date End Date Status SIT (TRADITIONAL) variable per schedule SC per schedule; Duration: to be determined Active OMEPRAZOLE 40 mg 1 cap(s) orally once a day Active TRELEGY ELLIPTA 200 mcg-62.5 mcg-25 mcg/inh 1 puff(s) inhaled once a day; Duration: 30 days Not-Taking Cetirizine HCl 10 MG 1 tab(s) orally once a day; Duration: 30 days Active NASAL WASHES N/A DIRECTED INTRANASALLY NEEDED; Duration: 30 *Please review for potential replacement for e-prescription and drug interaction check* Active Fluticasone Propionate 50 MCG/ACT 2 spray(s) in each nostril BID; Duration: 30 day(s) Active Auvi-Q 0.3 MG/0.3ML as directed intramuscularly once; Duration: 1 day Active Vitamin D2 1.25 MG 1 CAP(S) ORALLY ONCE A WEEK *Please review and pick correct strength-formula tion from Med[employer]pan options. If intended option is not shown, discontinue and re-order from Quick Search* Active Omeprazole 40 MG 1 cap(s) orally once a day Active ALPRAZOLAM 0.5 mg 1 tab(s) orally Qday, PRN Active Trelegy Ellipta 200 MCG-62.5 MCG-25 MCG/INH 1 PUFF(S) INHALED ONCE A DAY; Duration: 30 DAYS *Please review and pick correct strength-formula tion from [employer] options. If intended option is not shown, discontinue and re-order from Quick Search* Not-Taking MYRBETRIQ 50 mg 1 tab(s) orally once a day Active Albuterol Sulfate HFA 108 (90 Base) MCG/ACT 2 puffs Inhalation every 6 hrs; Duration: 30 days 05/27/2024 Active ROSUVASTATIN 20 mg 1 tab(s) orally once a week Active VITAMIN D2 1.25 mg 1 cap(s) orally once a week Active AUVI -Q 0.3 mg as directed intramuscularly once; Duration: 1 day Active Flonase Allergy Relief 50 MCG/ACT 2 spray(s) intranasally (avoid nasal septum) once a day Active AZELASTINE HYDROCHLORIDE NASAL 137 mcg/inh 2 spray(s) intranasally 2 times a day; Duration: 30 days Active buPROPion HCl ER (XL) 300 MG 1 tab(s) orally 2 times a day Active SINGULAIR 10 mg 1 tab(s) orally once a day; Duration: 90 days Active ALPRAZolam 0.5 MG 1 tab(s) orally Qday, PRN Active BREZTRI AEROSPHERE 160 mcg-4.8 mcg-9 mcg/inh 2 puff(s) inhaled 2 times a day; Duration: 30 days Active Myrbetriq 50 MG 1 tab(s) orally once a day Active XYZAL 5 mg 1 tab(s) orally once a day (in the evening) Active Rosuvastatin Calcium 20 MG 1 tab(s) orally once a week Active FLONASE 0.05 mg/inh 2 spray(s) intranasally (avoid nasal septum) once a day Active BUPROPION 300 mg/24 hours 1 tab(s) orally 2 times a day Active Azelastine HCl 137 MCG/SPRAY 2 spray(s) intranasally 2 times a day; Duration: 30 days Active Singulair 10 MG 1 tab(s) orally once a day; Duration: 90 days Active PROAIR HFA 90 MCG/INH 2 PUFF(S) INHALED EVERY 6 HOURS; Duration: 30 DAYS *Please review for potential replacement for e-prescription and drug interaction check* Active CETIRIZINE 10 mg 1 tab(s) orally once a day; Duration: 30 days Active Breztri Aerosphere 160 MCG-4.8 MCG-9 MCG/INH 2 PUFF(S) INHALED 2 TIMES A DAY; Duration: 30 DAYS *Please review and pick correct strength-formula tion from [employer] options. If intended option is not shown, discontinue and re-order from Quick Search* Active FLUTICASONE NASAL 50 mcg/inh 2 spray(s) in each nostril BID; Duration: 30 day(s) Active Xyzal Allergy 24HR 5 MG 1 tab(s) orally once a day (in the evening) Active Immunizations Vaccine Route Administration Date Status [...] Status Risk Notes Problem Vitamin D deficiency (67461678) Vitamin D deficiency, unspecified (E55.9) Active confirmed Problem Manic disorder, sing le episode (242467223) Manic episode, unspecified (F30.9) Active confirmed Problem Anxiety disorder (292731061) Anxiety disorder, unspecified (F41.9) Active confirmed Problem Chronic allergic conjunctivitis (04694581) Other chronic allergic conjunctivitis (H10.45) Active confirmed Problem Allergic rhinitis caused by pollen (disorder) (83388280) Allergic rhinitis due to pollen (J30.1) Active confirmed Problem Allergic rhinitis caused by animal hair and dander (601071026863727) Allergic rhinitis due to animal (cat) (dog) hair and dander (J30.81) Active confirmed Problem Allergic rhinitis (80227921) Other allergic rhinitis (J30.89) Active confirmed Problem Uncomplicated modera te persistent asthma (436007000) Moderate persistent asthma, uncomplicated (J45.40) Active confirmed Problem Gastro-esophageal reflux disease without esophagitis (199978718) Gastro-esophagea l reflux disease without esophagitis (K21.9) Active confirmed Problem Gastric ulcer (713512891) Gastric ulcer, unspecified as acute or chronic, without hemorrhage or perforation (K25.9) Active confirmed Problem Allergic rhinitis caused by pollen (disorder) (05035976) Allergic rhinitis due to pollen (J30.1) Active confirmed Problem Allergic rhinitis caused by animal hair and dander (194408428480448) Allergic rhinitis due to animal (cat) (dog) hair and dander (J30.81) Active confirmed Problem Allergic rhinitis (80688461) Other allergic rhinitis (J30.89) Active confirmed Problem Chronic allergic conjunctivitis (78657821) Other chronic allergic conjunctivitis (H10.45) Active confirmed Problem Chronic sinusitis (93348316) Other chronic sinusitis (J32.8) Active confirmed Problem Pure hypercholesterolemia (404795660) Pure hypercholesterol emia, unspecified (E78.00) Active confirmed Problem Irritable bowel syndrome characterized by constipation (569418551) Irritable bowel syndrome with constipation (K58.1) Active confirmed Encounters Encounter Location Date Provider Diagnosis [facility] [address] [facility] [address] [address] 09/10/2025 Caty Hanna Allergic rhinitis du e to pollen J30.1 ; Allergic rhinitis due to animal (cat) (dog) hair and dander J30.81 ; Other allergic rhinitis J30.89 and Other chronic allergic conjunctivitis H10.45 [facility] [employer] [address] [place] [address] 08/12/2025 Caty Hanna Allergic rhinitis du e to pollen J30.1 ; Allergic rhinitis due to animal (cat) (dog) hair and dander J30.81 ; Other allergic rhinitis J30.89 and Other chronic allergic conjunctivitis H10.45 [facility] [address] [employer] [address] [place] [address] 08/05/2025 Caty Hanna Allergic rhinitis du e to pollen J30.1 ; Allergic rhinitis due to animal (cat) (dog) hair and dander J30.81 ; Other allergic rhinitis J30.89 and Other chronic allergic conjunctivitis H10.45 [facility] [address] [place] [address] [employer] [address] [address] 07/30/2025 Catyjohnson Hanna Allergic rhinitis du e to pollen J30.1 ; Allergic rhinitis due to animal (cat) (dog) hair and dander J30.81 ; Other allergic rhinitis J30.89 and Other chronic allergic conjunctivitis H10.45 [facility] [address] [place], [place] [address] [address] [address] 07/01/2025 Catyjohnson Hanna Allergic rhinitis du e to pollen J30.1 ; Allergic rhinitis due to animal (cat) (dog) hair and dander J30.81 ; Other allergic rhinitis J30.89 and Other chronic allergic conjunctivitis H10.45 [facility] [address] [place] [address] [employer] [address] [address] 05/28/2025 Catyjohnson Hanna Allergic rhinitis du e to pollen J30.1 ; Allergic rhinitis due to animal (cat) (dog) hair and dander J30.81 ; Other allergic rhinitis J30.89 and Other chronic allergic conjunctivitis H10.45 [facility] [address] [place] [address] [employer] [address] [address] 05/06/2025 Catyjohnson Hanna Allergic rhinitis du e to pollen J30.1 ; Allergic rhinitis due to animal (cat) (dog) hair and dander J30.81 ; Other allergic rhinitis J30.89 and Other chronic allergic conjunctivitis H10.45 [facility] [address] [place] [address] [employer] [address] [place] [address] 04/08/2025 Caty Sturm Allergic rhinitis du e to pollen J30.1 ; Allergic rhinitis due to animal (cat) (dog) hair and dander J30.81 ; Other allergic rhinitis J30.89 and Other chronic allergic conjunctivitis H10.45 [facility] [address] [place], [place] [address] [address] [place] [address] 03/04/2025 Catyjohnson Hanna Allergic rhinitis du e to pollen J30.1 ; Allergic rhinitis due to animal (cat) (dog) hair and dander J30.81 ; Other allergic rhinitis J30.89 and Other chronic allergic conjunctivitis H10.45 [facility] [address] [place], [place] [address] [address] [place] [address] 01/28/2025 Caty Hanna Allergic rhinitis du e to pollen J30.1 ; Allergic rhinitis due to animal (cat) (dog) hair and dander J30.81 ; Other allergic rhinitis J30.89 and Other chronic allergic conjunctivitis H10.45 [facility] [address] [place], [place] [address] [address] [place] [address] 12/30/2024 Caty Hanna Allergic rhinitis du e to pollen J30.1 ; Allergic rhinitis due to animal (cat) (dog) hair and dander J30.81 ; Other allergic rhinitis J30.89 and Other chronic allergic conjunctivitis H10.45 [facility] [address] [place], [place] [address] [address] [place] [address] 12/03/2024 Caty Hanna Allergic rhinitis du e to pollen J30.1 ; Allergic rhinitis due to animal (cat) (dog) hair and dander J30.81 ; Other allergic rhinitis J30.89 and Other chronic allergic conjunctivitis H10.45 [facility] [address] [place], [place] [address] [address] [place] [address] 11/20/2024 Caty Hanna Allergic rhinitis du e to pollen J30.1 ; Allergic rhinitis due to animal (cat) (dog) hair and dander J30.81 ; Other allergic rhinitis J30.89 and Other chronic allergic conjunctivitis H10.45 [facility] [address] [place], [place] [address] [address] [place] [address] 11/05/2024 Caty Hanna Allergic rhinitis du e to pollen J30.1 ; Allergic rhinitis due to animal (cat) (dog) hair and dander J30.81 ; Other allergic rhinitis J30.89 and Other chronic allergic conjunctivitis H10.45 [facility] [address] [place], [place] [address] [address] [place] [address] 10/21/2024 Caty Jacques Allergic rhinitis du e to pollen J30.1 ; Allergic rhinitis due to animal (cat) (dog) hair and dander J30.81 ; Other allergic rhinitis J30.89 and Other chronic allergic conjunctivitis H10.45 [facility] [address] [place] [address] 10/09/2024 Caty Hanna Allergic rhinitis du e to pollen J30.1 ; Allergic rhinitis due to animal (cat) (dog) hair and dander J30.81 ; Other allergic rhinitis J30.89 and Other chronic allergic conjunctivitis H10.45 [facility] [address] [place] [address] 09/18/2024 Caty Hanna Allergic rhinitis du e to pollen J30.1 ; Allergic rhinitis due to animal (cat) (dog) hair and dander J30.81 ; Other allergic rhinitis J30.89 and Other chronic allergic conjunctivitis H10.[address] [address] 12/05/2024 Caty Hanna Assessments Encounter Date Diagnosis (ICD Code) Assessment Notes Treatment Notes Treatment Clinical Notes Section Notes 09/10/2025 Allergic rhinitis due to pollen (ICD-10 - J30.1) 08/12/2025 Allergic rhinitis due to pollen (ICD-10 - J30.1) 08/05/2025 Allergic rhinitis due to pollen (ICD-10 - J30.1) 07/30/2025 Allergic rhinitis due to pollen (ICD-10 - J30.1) 07/01/2025 Allergic rhinitis due to pollen (ICD-10 - [...] - J30.1) 09/18/2024 Allergic rhinitis due to animal (cat) [...] (dog) hair and dander (ICD-10 - J30.81) 07/01/2025 Allergic rhinitis due to animal (cat) (dog) hair and dander (ICD-10 - J30.81) 07/30/2025 Allergic rhinitis due to animal (cat) (dog) hair and dander (ICD-10 - J30.81) 08/05/2025 Allergic rhinitis due to animal (cat) (dog) hair and dander (ICD-10 - J30.81) 08/12/2025 Allergic rhinitis due to animal (cat) (dog) hair and dander (ICD-10 - J30.81) 09/10/2025 Allergic rhinitis due to animal (cat) (dog) hair and dander (ICD-10 - J30.81) 09/10/2025 Other allergic rhinitis (ICD-10 - J30.89) 08/12/2025 Other allergic rhinitis (ICD-10 - J30.89) 08/05/2025 Other allergic rhinitis (ICD-10 - J30.89) 07/30/2025 Other allergic rhinitis (ICD-10 - J30.89) 07/01/2025 Other allergic rhinitis (ICD-10 - J30.89) 05/28/2025 Other allergic rhinitis (ICD-10 - J30.89) 05/06/2025 Other allergic rhinitis (ICD-10 - J30.89) 04/08/2025 Other allergic rhinitis (ICD-10 - J30.89) 03/04/2025 Other allergic rhinitis (ICD-10 - J30.89) 01/28/2025 Other allergic rhinitis (ICD-10 - J30.89) 12/30/2024 Other allergic rhinitis (ICD-10 - J30.89) 12/03/2024 Other allergic rhinitis (ICD-10 - J30.89) 11/20/2024 Other allergic rhinitis (ICD-10 - J30.89) 11/05/2024 Other allergic rhinitis (ICD-10 - J30.89) 10/21/2024 Other allergic rhinitis (ICD-10 - J30.89) 10/09/2024 Other allergic rhinitis (ICD-10 - J30.89) 09/18/2024 Other allergic rhinitis (ICD-10 - J30.89) 09/18/2024 Other chronic allergic conjunctivitis (ICD-10 - [...] Other chronic allergic conjunctivitis (ICD-10 - H10.45) 07/01/2025 Other chronic allergic conjunctivitis (ICD-10 - H10.45) 07/30/2025 Other chronic allergic conjunctivitis (ICD-10 - H10.45) 08/05/2025 Other chronic allergic conjunctivitis (ICD-10 - H10.45) 08/12/2025 Other chronic allergic conjunctivitis (ICD-10 - H10.45) 09/10/2025 Other chronic allergic conjunctivitis (ICD-10 - H10.45) [...] G/A/M 08/23/2023 VITAMIN D, 25-OH, TOTAL, [place] 08/23/2023 VITAMIN D, 25-OH, TOTAL, [place] 08/21/2023 HAEMOPHILUS INFLUENZAE B ANTIBODY, IGG 0 12/25/2023 HAEMOPHILUS INFLUENZAE B ANTIBODY, IGG 1 10/23/2022 HAEMOPHILUS INFLUENZAE B ANTIBODY, IGG 1 -Pneumococcal Ab (23 Serotype) Next Appt Details Provider Name:Caty sheppard, 10/08/2025 04:40:00 PM, [address] [facility], [address], [place], [address], Insurance Providers Payer Name Payer Address Payer Phone Subscriber Number Group Number Insured Name Patient Relationship to Insured Coverage Start Date Coverage End Date [employer] [address] [place] [id number] Barbara Kaur Self - patient is the [...]
--- OUTSIDE RECORDS SUMMARY | 2025-09-18 15:54 | XMS_ITS | Clinical Summary ---
Author Organization [facility] Address [address] [place] [address] Care Team Providers Care Interlocker Maintainer Name Role Phone Kendall Wayne MD Primary Care Provider [phone] Source Comments [facility] and Associated [facility]ician Practices is amultiple site organization consisting of ambulatory clinics and hospital sitesin [place], [place], [place] and [place]. This disclosure is being madepursuant to the Care Everywhere program and may not contain all information available regarding this patient. Last updated 18.[facility] Allergies Active Allergy Reactions Criticality Noted Date Comments Amoxicillin Nausea and/or Vomiting 07/15/2016 Penicillins GI Discomfort 04/24/2020 Medications * Be aware that medications may not be up to date on this document. Alwaysverify current medications with the patient. fluticasone propionate (FLONASE) 50 MCG/ACT nasal spray Patrick 2 Sprays into each nostril once daily [...] on file Legal Sex Female 6:27 AM APPLICATION DBA Gender Identity Not on file Sexual Orientation [...] of 3 - 19+ 3-dose series) 1987 PAP SMEAR 1989 Cervical Cancer Screening 1998 PAP with HPV 1998 PNEUMOCOCCAL VACCINE 50+ (1 of 1 - PCV) 2018 ZOSTER VACCINE (1 of 2) 2018 COVID-19 VACCINE (3 - 2024-2 6 season) 2025 01/11/2021, 12/02/2020 INFLUENZA VACCINE (#1) 2025 , [...] to complete this topic Insurance ANTHEM ANTHEM ANTH Care Teams Interlocker Maintainer Relationship Specialty Start Date End Date Kendall Wayne MD [address] [place] [address] PCP - General 09/21/21
--- OUTSIDE RECORDS SUMMARY | 2025-09-18 15:54 | XMS_ITS | Clinical Summary ---
Author Organization [facility] Address [address] [place] [address] Care Team Providers Care Transmission Tester Name Role Phone Unavailable Primary Care Provider [...] of 2) 2018 COVID-19 Vaccine ( - 2024-2 6 season) 2025 Influenza Adult (#1) 2025 Hepatitis A Vaccines Aged Out No long er eligible based on patient's age to complete this topic Meningococcal B Vaccine Aged Out No l onger eligible based on patient's age to complete this topic Meningococcal Vaccine Aged Out No olga kenn eligible based on patient's age to complete this topic RSV Immunizations Under 20 Months Aged Out No longer eligible based on patient's age to complete this topic
--- OUTSIDE RECORDS SUMMARY | 2025-09-18 15:54 | XMS_ITS | Clinical Summary ---
Author Organization [employer] [facility] Address [address] [address] Care Team Providers Care Market Research Executive Name Role Phone Kendall Wayne MD Primary Care Provider [phone] Allergies Active Allergy Reactions Criticality Noted Date Comments Mold Extracts Unknown 05/09/2012 Penicillins Diarrhea,Nausea and Vomiting Low 2015 Unclassified Drug Unknown 05/09/2012 dust Medications loratadine (CLARITIN) 10 mg tablet Take 10 mg by mouth daily. Active buPROPion HCl (WELLBUTRIN XL) 150 mg Extended Release 24 hour tablet Take 150 mg by mouth daily director epidemiology. Active fluticasone (FLONASE) 50 mcg/spray [place], SuspensionIndic ations:Nasal congestion Administer 2 Sprays in [...] on file Legal Sex Female 4:35 AM STEEL CHIPPER Gender Identity Not on file Sexual Orientation Not on file Last Filed Vital Signs Vital Sign Reading Time Taken Comments Blood Pressure 124/84 11/28/2022 8:06 AM STEEL CHIPPER Pulse 87 11/28/2022 8:06 AM STEEL CHIPPER Temperature 36.9 C (98.5 F) 04/20/2015 9:04 AM CDT Respiratory Rate 18 11/28/2022 8:06 AM STEEL CHIPPER Oxygen Saturation 100% 11/28/2022 8:06 AM STEEL CHIPPER Inhaled Oxygen Concentration - - Weight 75.2 kg (165 lb 12.8 oz) 10/19/2022 7:00 AM STEEL CHIPPER Height 172.7 cm (5' 8) 09/15/2021 2:00 PM STEEL CHIPPER Body Mass Index 25.21 09/15/2021 2:00 PM STEEL CHIPPER Plan of Treatment Health Maintenance Due Date [...] 2018 INFLUENZA VACCINE (#1) 2025 07/24/2015 Insurance [facility] BLUE ACCESS CHOICE Care Teams Market Research Executive Relationship Specialty Start Date End Date Kendall Wayne MD [address] [place] [address] PCP - General Family Practice 06/08/21
--- NOTE | 2025-09-18 16:00 | ED.GENADULT ---
HPI - General Adult General Chief complaint: Extremity Injury, Upper Stated complaint: fell out of bed last night, R arm pain Time Seen by Provider: 09/18/25 15:31 History of Present Illness HPI narrative: This is a 55-year-old female presenting after a fall out of bed. She took some Ambien last night fell asleep sitting up in her bed. She then rolled out of bed striking her right shoulder. She then had immediate pain in her right shoulder/clavicle. She does have a history of rotator cuff surgery and has been undergoing physical therapy in that region. She struck her head but did not lose consciousness. She is not on blood thinners. No persistent vomiting or neurologic defects. Related Data Home Medications ?Medication ?Instructions ?Recorded ?Confirmed ?Last Taken ?Type estradiol 1 mg tablet 1 mg PO DAILY 02/04/21 08/21/25 06/16/25 History alprazolam 0.5 mg tablet 0.5 mg PO QHS PRN Anxiety 11/07/22 08/21/25 06/17/25 History bupropion HCl 300 mg 24 hr tablet, 300 mg PO QAM 11/07/22 08/21/25 06/17/25 History extended release levocetirizine 5 mg tablet (Xyzal) 5 mg PO DAILY 11/07/22 08/21/25 06/16/25 History zolpidem 10 mg tablet 10 mg PO DAILY 11/07/22 08/21/25 06/16/25 History atomoxetine 40 mg capsule 40 mg PO DAILY 12/02/22 08/21/25 06/16/25 History topiramate 50 mg tablet 50 mg PO DAILY 05/22/23 08/21/25 06/16/25 History fluticasone propionate 50 1 spray intranasal BID 08/15/23 08/21/25 06/16/25 History mcg/actuation nasal spray,suspension melatonin 1 mg-magnesium citrate 1 tablet PO HS 10/21/24 08/21/25 06/16/25 History 71.5 mg tablet,delayed release (SlowMag Mg Calm-Sleep) Allergies Allergy/AdvReac Type Severity Reaction Status Date / Time mold Allergy Mild Congested Verified 07/03/25 15:52 Penicillins AdvReac Mild Vomiting Verified 07/03/25 15:52 amoxicillin (From Augmentin) AdvReac Vomiting Verified 07/03/25 15:52 clavulanic acid (From AdvReac Vomiting Verified 07/03/25 15:52 Augmentin) COUNT INCLUDES THE [facility] Past Medical History Medical History Otitis media Influenza Epigastric pain Recurrent tonsillitis Palpitations Chest pain UTI (urinary tract infection) Depression with anxiety Obstructive sleep apnea Gas bloat syndrome Nausea Hyperinflation of lungs High cholesterol Irritable bowel syndrome with constipation GERD (gastroesophageal reflux disease) Hx of gastric ulcer Asthma Pain of radial side of wrist Left wrist injury Surgical History Surgical History History of lumpectomy of left breast H/O: hysterectomy Family History Family History Father Mother Diabetes mellitus Hypertension Obesity Neuropathy Depression Thyroid disorder Sibling Hyperlipidemia Depression Thyroid disorder Other Asthma Hypertension Depression Grandparent Lung cancer Bladder cancer Diabetes mellitus Hypertension Depression Heart disease Cerebrovascular accident Thyroid disorder Social History Social History Smoking status: Former smoker Second hand tobacco smoke exposure: No Alcohol intake: never Substance use: never Substance use type: does not use Lack of Transportation: No Lack of Food: Never True Current Housing: I Have Housing Concerned About Future Housing: No Difficulty Paying Gas/Electric Bills: No Difficulty Paying for Meds: No Currently Unemployed: No Education: Master's Degree or Higher Difficulty w/ Childcare or Family Care: No Living arrangements: with family Additional living arrangements comments: LIVES WITH SPOUSE YAS [phone] Occupation/Education: occupation 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 Head: atraumatic. EYES: EOMI, NOSE: Atraumatic NECK: Trachea midline RESPIRATORY: No increased rate of breathing, CTAB CARDIOVASCULAR: RRR, ABDOMINAL: Non-distended MUSCULOSKELETAl: Tenderness over the distal clavicle with some mild bruising over the chest. No tenting of the skin. Focal exam of the right upper extremity revealed intact radial ulnar pulses. Intact motor function in the Radian ulnar and median nerve. Cap refill less than 2 seconds. NEURO: Alert. Moving 4/4 extremities SKIN:: Warm, dry. Normal color PSYCHIATRIC: Normal affect Course Vital Signs Vital signs: Vital Signs Temperature 99 F 09/18/25 15:27 Pulse Rate 92 09/18/25 15:27 Respiratory Rate 18 09/18/25 15:27 Blood Pressure 113/59 L 09/18/25 15:27 Pulse Oximetry 100 09/18/25 15:27 Oxygen Delivery Room Air 09/18/25 15:27 Temperature 99 F 09/18/25 15:27 Pulse Rate 92 09/18/25 15:27 Respiratory Rate 18 09/18/25 15:27 Blood Pressure 113/59 L 09/18/25 15:27 Pulse Oximetry 100 09/18/25 15:27 Oxygen Delivery Room Air 09/18/25 15:27 Medical Decision Making MDM Narrative Medical decision making narrative: -Course: 55-year-old female presenting with a fall out of bed. She has a clavicle fracture on the right side. No tenting of the skin. No neurovascular injury. She is placed in a sling and given pain control. She is already established with Dr. Perez. She will be given follow-up call early with next week. Patient did strike her head the trauma was minor. No need for imaging per [facility] CT rules. -DDX includes but is not limited to: Clavicle fracture, proximal humerus fracture -Co-morbidities complicating care: History of rotator cuff surgery Vital Signs Vital Signs: Vital Signs Temperature 99 F 09/18/25 15:27 Pulse Rate 92 09/18/25 15:27 Respiratory Rate 18 09/18/25 15:27 Blood Pressure 113/59 L 09/18/25 15:27 Pulse Oximetry 100 09/18/25 15:27 Oxygen Delivery Room Air 09/18/25 15:27 Temperature 99 F 09/18/25 15:27 Pulse Rate 92 09/18/25 15:27 Respiratory Rate 18 09/18/25 15:27 Blood Pressure 113/59 L 09/18/25 15:27 Pulse Oximetry 100 09/18/25 15:27 Oxygen Delivery Room Air 09/18/25 15:27 Discharge Plan Discharge Clinical Impression: Clavicle fracture Patient Disposition: Home Condition: Stable Instructions: Antibiotic Form, Clavicle Fracture (DC) Additional Instructions: You were seen in the emergency department after a fall. You have a fractured clavicle. Please use the sling. He is Motrin Tylenol for pain oxycodone for breakthrough pain. Please call Dr. Perez's office Monday morning to arrange close follow-up. If you develop severe pain or weakness your and return to the ED for re-evaluation. Patient Language: Urdu Prescriptions: New ibuprofen 800 mg tablet 800 mg PO TID PRN (Reason: pain) 7 Days Qty: 21 0RF acetaminophen 500 mg tablet 1,000 mg PO TID PRN (Reason: alexey) 7 Days Qty: 42 0RF oxycodone 5 mg tablet 5 mg PO Q4H PRN (Reason: pain) Qty: 14 0RF ondansetron 4 mg tablet,disintegrating 4 mg PO Q8H PRN (Reason: nausea and vomiting) Qty: 30 0RF No Action atomoxetine 40 mg capsule 40 mg PO DAILY Patient Comments: takes in evening topiramate 50 mg tablet 50 mg PO DAILY Patient Comments: takes for headaches estradiol 1 mg tablet 1 mg PO DAILY Patient Comments: takes in evening levocetirizine [Xyzal] 5 mg tablet 5 mg PO DAILY bupropion HCl 300 mg tablet extended release 24 hr 300 mg PO QAM alprazolam 0.5 mg tablet 0.5 mg PO QHS PRN (Reason: Anxiety) zolpidem 10 mg tablet 10 mg PO DAILY SlowMag Mg Calm-Sleep 1-71.5 mg tablet,delayed release (DR/EC) 1 tablet PO HS ondansetron 4 mg tablet,disintegrating See Rx Instructions .ROUTE .COMPLEX Qty: 60 0RF Dose Instruction: DISSOLVE 1 TABLET ON THE TONGUE EVERY 6 HOURS NEEDED FOR NAUSEA OR VOMITING Rx Instructions: DISSOLVE 1 TABLET ON THE TONGUE EVERY 6 HOURS NEEDED FOR NAUSEA OR VOMITING fluconazole 150 mg tablet 150 mg PO DAILY Qty: 2 2RF Rx Instructions: administer on day 1 of therapy fluticasone propionate 50 mcg/actuation spray,suspension 1 spray intranasal BID Rx Instructions: administer into each nostril tramadol 50 mg tablet 50 mg PO Q8H PRN (Reason: pain) Qty: 60 0RF hydrocodone-acetaminophen 5-325 mg tablet 1 tablet PO Q8H PRN (Reason: pain) Qty: 30 0RF albuterol sulfate [ProAir HFA] 90 mcg/actuation HFA aerosol inhaler 1 inh INHALATION Q4H PRN (Reason: shortness of breath or wheezing) Qty: 6.7 3RF omeprazole 40 mg capsule,delayed release(DR/EC) 40 mg PO DAILY 90 Days Qty: 90 3RF Patient Comments: takes in evening rosuvastatin 10 mg tablet 10 mg PO DAILY Qty: 90 3RF Patient Comments: takes in evening ferrous sulfate [FeroSul] 325 mg (65 mg iron) tablet See Rx Instructions .ROUTE .COMPLEX Qty: 90 0RF Dose Instruction: TAKE ONE TABLET BY MOUTH DAILY FOR 3 MONTHS Rx Instructions: TAKE ONE TABLET BY MOUTH DAILY FOR 3 MONTHS Follow-up/Referrals: Kendall Wayne MD [Primary Care Provider, Family Practice]
[2025-09-18] MEDS: KETOROLAC 30 MG/ML VIAL (*BKC) IM (16:14)
[2025-09-18] MEDS: ACETAMINOPHEN 500 MG TABLET 1000 MG PO (16:15)
== END 2025-09-18 16:19 | disposition home or self-care (01) ==
PROVIDERS: Emergency Provider Emergency Medicine; PCP Family Medicine
DX: S42.034A Nondisplaced fracture of lateral end of right clavicle, initial encounter for closed fracture (principal); J45.909 Unspecified asthma, uncomplicated; E78.00 Pure hypercholesterolemia, unspecified; K21.9 Gastro-esophageal reflux disease without esophagitis; G47.33 Obstructive sleep apnea (adult) (pediatric); F41.8 Other specified anxiety disorders; Z87.440 Personal history of urinary (tract) infections; Z87.891 Personal history of nicotine dependence; Z90.710 Acquired absence of both cervix and uterus; W06.XXXA Fall from bed, initial encounter
CPT/HCPCS: 73000; 73030; 96372; 99284; A9270; J1885